=== PATIENT | male | born 1960 | race Caucasian/White ===

== ENCOUNTER 2016-12-10 08:34 | Inpatient (IN) | payer BC ==
[2016-12-10] MEDS ORDERED: IPRATROPIUM/ALBUTEROL (0.5MG/3MG) NEB INH ONE (08:58)
[2016-12-10] MEDS ORDERED: METHYLPREDNISOLONE PF 125MG/VIAL IVP ONE (08:58)
[2016-12-10] MEDS ORDERED: ALBUTEROL SULFATE (0.083%) 2.5 MG/3 ML NEB INH ONE (08:58)
--- NOTE | 2016-12-10 09:02 | Emergency Department Record ---
History of Present Illness - General Chief Complaint: Shortness of breath Stated Complaint: SHORT OF BREATH Time Seen by Provider: 12/10/16 08:54 Source: Patient Mode of Arrival: Ambulatory Limitations: No limitations - History of Present Illness Initial Comments: The patient has a long hx of COPD and has had mild SUSANA with an increased cough for 3 days that got a lot worse today. He denies any CP, fever, or sputum. He has a long hx of COPD and was admitted to [facility] [place] 2 months ago for respiratory failure. MD Complaint: Cough, Shortness of breath Onset/Timin -: Days(s) Consistency: Constant Improves With: Nothing Worsens With: Coughing Known History Of: COPD Associated Symptoms: Cough, Sputum production Treatments Prior to Arrival: Bronchodilator - Related Data Home Oxygen Therapy: Yes Home Oxygen Amount: 2 Liters Home Medications Medication Instructions Recorded Confirmed Last Taken Albuterol Sulfate [Proair Hfa] 1 puff INH Q6H PRN 04/05/15 12/10/16 02/29/16 Levothyroxine Sodium 75 mcg PO DAILY 04/05/15 12/10/16 02/29/16 Duloxetine HCl [Cymbalta] 60 mg PO BID 02/01/16 12/10/16 02/29/16 Umeclidinium Brm/Vilanterol Tr 1 each IH DAILY 02/01/16 12/10/16 12/10/16 [Anoro Ellipta 62.5-25 Mcg INH] Pantoprazole Sodium [Protonix] 20 mg PO DAILY 03/21/16 12/10/16 Unknown Budesonide [Budesonide] 0.5 mg IH DAILY 12/10/16 12/10/16 Unknown Cholestyramine (with Sugar) 4 gm PO DAILY 12/10/16 12/10/16 Unknown [Cholestyramine Packet] Nicotine [Nicotine Patch] 21 mg TD DAILY 12/10/16 12/10/16 Unknown Previous Rx's Medication Instructions Recorded Trazodone HCl 50 mg PO QHS #0 02/24/16 Allergies Allergy/AdvReac Type Severity Reaction Status Date / Time No Known Drug Allergies Allergy Verified 11/01/16 16:04 Travel Screening - Travel/Exposure Within Last 30 Days Have you traveled within the last 30 days?: No Review of Systems Constitutional: Denies: Chills, Fever Eyes: Denies: Eye discharge ENT: Reports: Congestion Respiratory: Reports: Cough, Dyspnea Cardiovascular: Denies: Arrhythmia, Chest pain Past Medical History - SOCIAL HISTORY Smoking Status: Light tobacco smoker (<10/day) - RESPIRATORY Hx Respiratory Disorders: Yes Comment:: Squamous cell carcinoma of the throat 2011, chemo and radiation 2012 - CARDIOVASCULAR Hx Cardio Disorders: Yes Hx Irregular Heartbeat: Yes (Atrial flutter) - NEURO Hx Neuro Disorders: No Hx Seizures: No - GI Hx GI Disorders: Yes Comment:: colon rupture with rection, sm. bowel resect 2 weeks ago. +C-diff - Hx Genitourinary Disorders: No - ENDOCRINE Hx Endocrine Disorders: Yes Hx Thyroid Disease: Yes (hypo) - MUSCULOSKELETAL Hx Musculoskeletal Disorders: No - PSYCH Hx Psych Problems: Yes Hx Anxiety: Yes Hx Depression: Yes - HEMATOLOGY/ONCOLOGY Hx Hematology/Oncology Disorders: Yes Hx Cancer: Yes (throat, lung) Family Medical History Any Significant Family History?: Yes Hx Alcohol Use: Father, Brother/Sister Hx Cancer: Father, Mother, Brother/Sister Hx Depression: Mother Hx Diabetes: Father Hx Resp Disorders: Brother/Sister Physical Exam - General General Appearance: Alert, Oriented x3, Cooperative, No acute distress - Head Head exam: Atraumatic, Normocephalic, Normal inspection - Eye Eye exam: Normal appearance, PERRL - ENT ENT exam: Normal exam, Mucous membranes moist, Normal external ear exam, Normal orophraynx, TM's normal bilaterally Throat exam: Normal inspection. negative: Tonsillar erythema, Tonsillar exudate - Neck Neck exam: Normal inspection, Full ROM. negative: Lymphadenopathy, Meningismus , Tenderness - Respiratory Respiratory exam: Decreased breath sounds, Wheezes (at the bases.). negative: Normal lung sounds bilaterally, Respiratory distress - Cardiovascular Cardiovascular Exam: Regular rate, Normal rhythm, Normal heart sounds - GI/Abdominal GI/Abdominal exam: Soft, Normal bowel sounds. negative: Tenderness - Extremities Extremities exam: Normal inspection, Full ROM, Normal capillary refill. negative: Tenderness - Neurological Neurological exam: Normal gait. negative: Abnormal gait - Psychiatric Psychiatric exam: negative: Anxious, Depressed Course Vital Signs 12/10/16 08:37 Temperature 98.2 F Pulse Rate 116 H Respiratory 20 Rate Blood Pressure 130/92 Pulse Ox 95 - Reevaluation(s) Reevaluation #1: The patient is doing much better at this time. His breathing is improved but he still has some wheezes at the bases. The patient states his breathing has improved and he is resting comfortably. Due to his hx of severe COPD and respiratory failure I did recommend hospital admission. I did discuss the case with Dr. Bush and he accepts him to the hospital. 12/10/16 10:24 Medical Decision Making - Data Complexity MDM Data: Labs Ordered and/or Reviewed, X-Ray Ordered and/or Reviewed - Lab Data Result diagrams: 12/10/16 08:55 12/10/16 08:55 - Radiology Data Radiology results: Report reviewed (CXR: No acute changes compared with old.) Disposition Disposition: Admit Clinical Impression: COPD (chronic obstructive pulmonary disease) with emphysema Qualifiers: Emphysema type: unspecified Qualified Code(s): J43.9 - Emphysema, unspecified Disposition: Still a Patient at [facility] Decision to Admit: Admit from ER Decision to Admit Date: 12/10/16 Decision to Admit Time: 10:26 Accepting Physician: Rachelle Time Discussed w/Accepting Physician: 10:27 Condition: (1) Good Forms: Patient Portal Access Time of Disposition: 10:27
[2016-12-10] MEDS ORDERED: MAGNESIUM SULFATE 16 MEQ in 0.9 % SODIUM CHLORIDE 100ML 100 ML IV ONE (09:03)
[2016-12-10 09:12] LABS: BASO % 0.3 % (0-6); EOS % 0.8 % (0-6); GRAN % 77.9 % (47-80); HEMATOCRIT 38.6 % (42.0-52.0); LYMPH % 11.4 % (16-45); MEAN CELL VOLUME 94.1 fl (81-97); MEAN CORPUSCULAR HEMOGLOBIN 29.2 pg (27-33); MEAN CORPUSCULAR HGB CONC 31.1 g/dl (32-36); MEAN PLATELET VOLUME 9.3 fl (7.4-10.4); MONO % 9.6 % (0-9); PLATELET COUNT 511 K/uL (130-400); RED CELL DISTRIBUTION WIDTH 14.5 % (11.5-14.5); WHITE BLOOD COUNT W/O DIFF 11.6 K/uL (4.2-12.2)
[2016-12-10 09:26] LABS: ANION GAP 12.5 (7-16); BLOOD UREA NITROGEN 14 mg/dL (9-20); CARBON DIOXIDE 32.5 mmol/L (22-30); CREATININE 0.8 mg/dL (0.66-1.25); EST GLOMERULAR FILTRATION RATE > 60 ml/min; GLUCOSE,RANDOM 105 mg/dL (70-110)
[2016-12-10 09:30] LABS: ARTERIAL BLD GAS O2 SATURATION 97.3 % (95-98); ARTERIAL BLOOD GAS HCO3 29.5 mmol/L (18-23); ARTERIAL BLOOD GAS PCO2 58.2 mmHg (35-48); ARTERIAL BLOOD GAS pH 7.33 (7.35-7.45); CARBOXYHEMOGLOBIN 4.2 % (0-1.5); METHEMOGLOBIN 0.6 % (0.0-1.5); O2 HEMOGLOBIN 92.7 % vol (94-99); TOTAL HEMOGLOBIN 10.7 g/dl (14-18)
[2016-12-10] MEDS ORDERED: CEFTRIAXONE SODIUM 1 GM in 0.9 % SODIUM CHLORIDE 100ML 100 ML IVPB ONE (10:21)
[2016-12-10] MEDS ORDERED: AZITHROMYCIN 500 MG in 0.9 % SODIUM CHLORIDE 250ML 250 ML IVPB ONE (10:21)
[2016-12-10] MEDS ORDERED: ALBUTEROL SULFATE (0.083%) 2.5 MG/3 ML NEB INH PRN ×2 (12:58→14:49)
[2016-12-10] MEDS: IPRATROPIUM/ALBUTEROL (0.5MG/3MG) NEB INH SCH ×3 (13:31→21:52)
--- NOTE | 2016-12-10 15:01 | RADIOLOGY REPORT ---
EXAM: CHEST HISTORY: DIFFICULTY BREATHING AND PRODUCTIVE COUGH WITH BROWN SPUTUM FOR ONE DAY. HISTORY OF LUNG CANCER AND THROAT CANCER. TECHNIQUE: Two views of the chest were obtained. Comparison: 04/14/15. FINDINGS: The heart is not enlarged. No mediastinal mass. There is volume loss in the right hemithorax likely from prior partial right pneumonectomy. There is chronic blunting at the right lung base. The lungs are hyperinflated. There is no acute infiltrate or vascular congestion identified. IMPRESSION: 1. POST RIGHT THORACOTOMY AND PARTIAL PNEUMONECTOMY CHANGES ARE REDEMONSTRATED. 2. THERE ARE EMPHYSEMATOUS CHANGES. 3. NO ACUTE CARDIAC OR PULMONARY ABNORMALITY. JOB NUMBER: [id number] MTDD
[2016-12-10] MEDS ORDERED: 0.9 % SODIUM CHLORIDE 1000ML 1,000 ML IV PRN (15:13)
[2016-12-10] MEDS: NICOTINE 21 MG/24 HOUR PATCH TD SCH (18:09)
[2016-12-10] MEDS: CHOLESTYRAMINE 4 GM PO SCH (19:00)
[2016-12-10] MEDS: CEFTRIAXONE SODIUM 1 GM in 0.9 % SODIUM CHLORIDE 100ML 100 ML IVPB SCH (22:09)
[2016-12-10] MEDS: TRAZODONE 50 MG TABLET PO SCH (22:10)
[2016-12-10] MEDS: DULOXETINE HCL 30 MG CAPSULE.DR PO SCH (22:10)
[2016-12-11] MEDS: IPRATROPIUM/ALBUTEROL (0.5MG/3MG) NEB INH SCH ×6 (02:16→22:15)
[2016-12-11 06:01] LABS: BASO % 0.5 % (0-6); EOS % 0.5 % (0-6); GRAN % 68.6 % (47-80); HEMATOCRIT 31.8 % (42.0-52.0); HEMOGLOBIN 9.7 gm/dl (14.0-18.0); LYMPH % 16.9 % (16-45); MEAN CELL VOLUME 94.4 fl (81-97); MEAN CORPUSCULAR HGB CONC 30.5 g/dl (32-36); MEAN PLATELET VOLUME 9.3 fl (7.4-10.4); MONO % 13.5 % (0-9); PLATELET COUNT 443 K/uL (130-400); RED BLOOD COUNT 3.37 M/uL (4.40-5.70); RED CELL DISTRIBUTION WIDTH 14.3 % (11.5-14.5); WHITE BLOOD COUNT W/O DIFF 6.2 K/uL (4.2-12.2)
[2016-12-11 06:04] LABS: MEAN CORPUSCULAR HEMOGLOBIN 28.7 pg (27-33)
[2016-12-11 06:13] LABS: ALB/GLOB RATIO 1.3 (1.1-1.8); ALBUMIN 3.4 gm/dL (3.5-5.0); ALKALINE PHOSPHATASE 63 U/L (38-126); ALT/SGPT 37 U/L (21-72); ANION GAP 9.2 (7-16); AST/SGOT 22 U/L (17-59); BILIRUBIN,TOTAL < 0.10 mg/dL (0.2-1.3); BLOOD UREA NITROGEN 12 mg/dL (9-20); CARBON DIOXIDE 32.8 mmol/L (22-30); CREATININE 0.6 mg/dL (0.66-1.25); EST GLOMERULAR FILTRATION RATE > 60 ml/min; GLUCOSE,RANDOM 106 mg/dL (70-110); TOTAL PROTEIN 6.1 gm/dL (6.3-8.2)
[2016-12-11] MEDS: LEVOTHYROXINE SODIUM 75 MCG TABLET PO SCH (06:16)
[2016-12-11] MEDS: PANTOPRAZOLE SODIUM 40 MG TABLET PO SCH (06:16)
--- NOTE | 2016-12-11 07:33 | History and Physical Report ---
DATE OF DICTATION: 12/10/2016 at 7:30 p.m. CHIEF COMPLAINT: Dyspnea. HISTORY OF PRESENT ILLNESS: This 56-year-old male presented to the emergency department short of breath. He states that it started about two days prior. He was feeling pretty tired at that time. He woke up on the morning of admission very short of breath. He came into the emergency room and had a blood gas of 7.33, PC02 of 58, and P02 was decreased. He was evaluated by Dr. Luna with three breathing treatments, intravenous Solu Medrol, Rocephin, and intravenous magnesium. He was doing better. At that point it was felt he needed to be admitted for further treatments and intravenous antibiotics. PAST MEDICAL HISTORY: Metastatic lung cancer with a lobectomy of the right lower lobe. He had a thoracotomy. He also had a bowel resection with anastomosis and a perforation and a neck biopsy. He had squamous cell cancer of the neck, chronic obstructive pulmonary disease, and tobacco use disorder. He also had squamous cell carcinoma of the throat in 2011 with chemotherapy and radiation therapy. He has hypothyroidism and some anxiety disorders. PAST SURGICAL HISTORY: As stated above throat surgery, lung surgery, and colon surgery. MEDICATIONS ON ADMISSION: Pulmicort 0.5 mg b.i.d. nebulization. I think this was placed this admission. Nicotine patches, Cymbalta 60 mg b.i.d., cholestyramine 4.0 gm or one package a day for C. difficile. He is also on Anoro Ellipta inhaler one puff daily, trazodone 50 mg at h.s., Protonix 20 mg daily, Levothroid 75 mcg q. daily, and albuterol two puffs q. four hours p.r.n. He also has a nebulizer of DuoNeb at home. ALLERGIES: No known drug allergies. FAMILY/PSYCHOSOCIAL HISTORY: He smokes only ten cigarettes a day, but he did used to smoke one pack per day and even more than that when he was younger. He denies any alcohol or illegal drug use. Alcohol use with father, brother, and sister. Cancer in the father, mother, brother, and sister. Depression in the mother. Diabetes in the father. Respiratory disease in the brother and sister. REVIEW OF SYSTEMS: HEENT: He has slight congestion and a hoarse voice. He has a cough and productive sputum. Cardiovascular: No chest pain, palpitations, or arrhythmias. Respiratory: Short of breath. Cough. Decreased breath sounds. He has a hard time taking a deep breath. Gastrointestinal: No nausea, vomiting, diarrhea, black stools, or bloody stools. Genitourinary: No dysuria, hematuria, frequency, or burning on urination. Musculoskeletal: He does have chronic joint problems and arthritis, but he is moving all four extremities well. He moves around, sits up, and walks appropriately. Neurologic: No cerebrovascular accident, paralysis, or paraesthesias. Endocrine: No diabetes or thyroid disease. Integument: No rash, ulcers, changing moles, or yellow skin. PHYSICAL EXAMINATION: General: Height is 5 feet, 7 inches. Weight is 117 pounds. Vital Signs: Temperature is 98.8, pulse is 102, blood pressure is 119/78, pulse oximetry on 1.5 liters per minute of oxygen is 98%. His home oxygen is 1.5 to 2 liters per minute. When he is off his oxygen, it drops down to 85% on room air. HEENT: Pupils are equal, round, and reactive to light and accommodation. Extraocular muscles are intact. The throat is clear. The nose is clear. The tympanic membranes are ibarra. Neck: The neck is supple. No jugular venous distension. No hepatojugular reflex. No carotid bruit. The thyroid is smooth. Cardiovascular: Regular rate and rhythm without murmurs, clicks, rubs, or gallops. Respiratory: Decreased breath sounds bilaterally, some wheezing, and a cough with deep inspiration. Abdomen: Soft and nontender. No hepatosplenomegaly. No masses. No tenderness. Bowel sounds are active. No bruit. Extremities: No pitting edema. No cyanosis. No clubbing. Full range of motion. Peripheral pulses are good. Breasts: Normal male breasts. Rectal and Genitalia Examination: Deferred. Neurological Examination: Cranial nerves II through XII are intact. No gross defect. Sensation is normal. Strength is normal. Deep tendon reflexes are equal bilaterally. Babinski is negative. Mental Status: Alert and oriented times three. IMPRESSIONS: 1. Acute bronchitis. 2. Chronic obstructive pulmonary disease exacerbation. 3. Chronic hypoxia requiring home oxygen at 1.5 liters per minute. He also has problems with retaining C02, and so he cannot really increase his oxygen levels much because he will retain carbon dioxide as noted during his last hospitalization at [facility]. His PC02 was up to over 100. PLAN: Intravenous Solu Medrol 60 mg q. eight hours, Rocephin 1.0 gm q. 12 hours , azithromycin 500 mg q. daily. Breathing treatments with DuoNeb q. four hours while awake. Oxygen therapy. Albuterol q. one hour p.r.n. Cautious hydration with normal saline at 50 mL per hour. Nikita Bush D.O. Date Time JOB NUMBER: [id number] MTDD
[2016-12-11] MEDS: DULOXETINE HCL 30 MG CAPSULE.DR PO SCH ×3 (07:41→22:20)
[2016-12-11] MEDS ORDERED: BUDESONIDE 0.5 MG/2 ML INH SCH (10:00)
[2016-12-11] MEDS: NICOTINE 21 MG/24 HOUR PATCH TD SCH (10:05)
[2016-12-11] MEDS: CEFTRIAXONE SODIUM 1 GM in 0.9 % SODIUM CHLORIDE 100ML 100 ML IVPB SCH (10:05)
[2016-12-11] MEDS: AZITHROMYCIN 500 MG in 0.9 % SODIUM CHLORIDE 250ML 250 ML IVPB SCH (12:03)
[2016-12-11] MEDS ORDERED: METHYLPREDNISOLONE PF 125MG/VIAL IVP SCH (16:00)
[2016-12-11] MEDS: ENOXAPARIN 40 MG/0.4 ML SYR SQ SCH (16:39)
[2016-12-11] MEDS: PREDNISONE 10 MG TAB PO ONE (16:40)
[2016-12-11] MEDS: PREDNISONE 20 MG TAB PO SCH (16:40)
[2016-12-11] MEDS: 0.9 % SODIUM CHLORIDE 10ML SYR IVP SCH ×2 (16:42→22:20)
[2016-12-11] MEDS: CHOLESTYRAMINE 4 GM PO SCH (18:00)
[2016-12-11] MEDS: TRAZODONE 50 MG TABLET PO SCH (22:20)
[2016-12-12] MEDS: IPRATROPIUM/ALBUTEROL (0.5MG/3MG) NEB INH SCH ×3 (03:14→08:59)
[2016-12-12] MEDS: LEVOTHYROXINE SODIUM 75 MCG TABLET PO SCH (07:12)
[2016-12-12] MEDS: PANTOPRAZOLE SODIUM 40 MG TABLET PO SCH (07:12)
[2016-12-12] MEDS: PREDNISONE 10 MG TAB PO ONE (09:05)
[2016-12-12] MEDS: PREDNISONE 20 MG TAB PO SCH (09:16)
[2016-12-12] MEDS: DULOXETINE HCL 30 MG CAPSULE.DR PO SCH (09:57)
[2016-12-12] MEDS: ENOXAPARIN 40 MG/0.4 ML SYR SQ SCH (09:57)
[2016-12-12] MEDS: NICOTINE 21 MG/24 HOUR PATCH TD SCH (09:59)
[2016-12-12] MEDS: AZITHROMYCIN 500 MG in 0.9 % SODIUM CHLORIDE 250ML 250 ML IVPB SCH (09:59)
--- NOTE | 2016-12-12 12:12 | Discharge Note ---
Discharge Note - Date Date of Discharge Note: 12/12/16 Disposition: Home, Self-Care Condition: (1) Good Additional Instructions: follow up with Dr. Bob on weds use home oxygen Prescriptions: Ipratropium/Albuterol [Duoneb] 3 ml INH RESP.Q4H.WA #120 ampul.neb Prednisone [Prednisone 10Mg] 10 mg PO ASDIR #30 tab Azithromycin [Zithromax] 250 mg PO DAILY #6 tab Forms: Patient Portal Access Activity at Discharge: Increase Activity as Tolerated
--- NOTE | 2016-12-12 12:34 | Discharge Note ---
Discharge Note - Date Date of Discharge Note: 12/12/16 Condition: (1) Good Additional Instructions: follow up with Dr. Bob on weds use home oxygen Prescriptions: Ipratropium Br. 0.02% Neb [Atrovent 0.02% Neb] 0.5 mg NEB QID #120 ml Prednisone [Prednisone 10Mg] 10 mg PO ASDIR #30 tab Budesonide [Pulmicort] 0.5 mg IH Q12H #60 nebu Azithromycin [Zithromax] 250 mg PO DAILY #6 tab Referrals: Jim Bob M.D., F.A.C.P. [Primary Care Provider] - Forms: Patient Portal Access Activity at Discharge: Increase Activity as Tolerated
--- NOTE | 2016-12-12 13:47 | Discharge Summary ---
DATE OF DISCHARGE: 12/12/2016 at 12:35 p.m. DISCHARGE DIAGNOSES: 1. Acute bronchitis. 2. Exacerbation of chronic obstructive pulmonary disease. 3. Hypoxia requiring home oxygen at two liters per minute per nasal cannula. 4. A history of C. difficile. He is currently on cholestyramine for 30 more days. He initially had Flagyl at the beginning of the course of treatment when he was at [facility]. 5. A history of hypothyroidism. 6. A history of tobacco use disorder. 7. As an inpatient he wants to use the nicotine patches. He has them at home, 14 and 7 mcg per 24 hours. He will plan to use a 14 and a 7 at the same time for a short while. He will then drop them down to 14 and then 7. 8. He also has gastroesophageal reflux disease. ATTENDING PHYSICIAN: Nikita Bush D.O. REASON FOR HOSPITALIZATION: Dyspnea. HISTORY OF THE PRESENT ILLNESS: This 56-year-old male presented to the emergency department short of breath. He states that it started about two days prior. He was feeling pretty tired and run down. He woke up on the morning of admission very short of breath. He came to the emergency department and had a blood gas of 7.33, a PC02 of 50, and a P02 of 80. He was evaluated by Dr. Luna and had three breathing treatments. He was given intravenous Solu Medrol, Rocephin, and intravenous magnesium. He was doing better. At that point it was felt that he needed to be admitted for further treatments and antibiotics. He recently had a hospitalization at [facility] on October 30 through the . He was on Bi-PAP and in respiratory failure, and so Dr. Luna was concerned that he could go that way with this admission. SIGNIFICANT FINDINGS FROM EXAMINATION: LABORATORY DATA: His pH was 7.33, PC02 was 58, P02 was 88, bicarb was 29. Carboxyhemoglobin was 4.2. He is still smoking cigarettes. Hemoglobin was 0.6. His potassium was 4.3. C-reactive protein was 1.5; slightly elevated. White blood cell count was 11,600, hemoglobin was 12.0. DIAGNOSTIC DATA: Chest x-ray showed no acute cardiopulmonary abnormality. Post right thoracotomy and partial pneumectomy changes are redemonstrated. There are emphysematous changes. Cardiac monitoring showed normal sinus rhythm without premature ventricular contractions. THERAPY PROVIDED: The patient was started on breathing treatments with DuoNeb q. four hours while awake. He had three treatments of albuterol in the emergency department. Solu Medrol 125 mg was given intravenously. He was also given 2.0 gm of magnesium or 16 mEq. He was admitted to the hospital with intravenous Rocephin and azithromycin. HOSPITAL COURSE: The patient gradually improved. CONDITION AT DISCHARGE: Much improved. He is short of breath still when he walks a distance. He has to have his oxygen at two liters per minute per nasal cannula. He also needs to use his nebulizer. He has Pulmicort at home and is using that 0.5 mg twice a day. He has separate albuterol and Atrovent. He uses those four times a day. He also has the portable ProAir and the portable Ellipta inhaler one puff daily. DISCHARGE INSTRUCTIONS: He is to continue his other home medications. Follow up with Dr. Bob on Tuesday or within the next seven to ten days. He is to use a prednisone taper at 40 mg with 10 mg pills. He will take four pills a day for three days, and then three pills a day for three days, two pills a day for three days, and then one pill a day for three days. Z-Zak one a day until gone. Home oxygen at two liters per minute per nasal cannula. Stop the cigarettes. Continue the nicotine patches. He wants to use 21 mcg a day for a period of time and then he will drop down to 14 and then 7. Continue the Pulmicort 0.5 mg b.i.d. and the separate albuterol nebulization four times a day. He has separate medication. Cymbalta 60 mg b.i.d. Cholestyramine 4.0 gm one package daily for his C. difficile; he has 30 days of that. He has the Anora Ellipta inhalation one puff per day. Trazodone 50 mg at h.s., Protonix 20 mg daily, Levothroid 75 mcg q. daily. Activity as tolerated. Nikita Bush D.O. Date Time JOB NUMBER: [id number] cc: Salbador Booker
== END 2016-12-12 13:10 | disposition home or self-care (01) | DRG 192 ==
LOC: ER 08:34 → MEDSURG 12:18
PROVIDERS: ADMIT Emergency Medicine; ATTEND Emergency Medicine
DX: J44.0 Chronic obstructive pulmonary disease with (acute) lower respiratory infection (principal); J20.9 Acute bronchitis, unspecified; R09.02 Hypoxemia; F17.200 Nicotine dependence, unspecified, uncomplicated; E03.9 Hypothyroidism, unspecified; I48.2 Chronic atrial fibrillation; Z85.01 Personal history of malignant neoplasm of esophagus
CPT/HCPCS: 36600; 71020; 80048; 80053; 82375; 82803; 85025; 86140; 94640; 96365; 96366; 96368; 96375; 99285; J0456; J1650; J2930; J7050; J7512; J7613

== ENCOUNTER 2017-01-07 19:03 | Emergency (ER) | payer BC ==
[2017-01-07] MEDS ORDERED: 0.9 % SODIUM CHLORIDE 1,000 ML BAG IV ONE (19:51)
--- NOTE | 2017-01-07 19:54 | Emergency Department Record ---
History of Present Illness - General Chief Complaint: Recheck - Other Stated Complaint: HEMOGLOBIN & IRON LOW Time Seen by Provider: 01/07/17 19:45 Source: Patient - History of Present Illness Initial Comments: The patient is here due to generalized weakness and he thinks he may be dehydrated. He is chronically ill with lung cancer treated 2 years ago with no known recurrence, throat cancer with not recurrence. He is being followed by his oncologist. Three days ago he was told he had "low iron" and was placed on iron tablets. He denies cp, worsened yanick, n,v,d, but he is urinating less often and thinks he may be dehydrated. No f,c, change in his chronic cough, increased YANICK, or leg pains. Onset/Timin -: Days(s) Initial Visit For: Other Returns Today for: Called because of abnormal lab/test Symptoms Since Prior Visit: No new symptoms, Other Associated Symptoms: Other Treatments Prior to Arrival: Other - Related Data Home Medications Medication Instructions Recorded Confirmed Last Taken Albuterol Sulfate [Proair Hfa] 1 puff INH Q6H PRN 04/05/15 01/07/17 02/29/16 Levothyroxine Sodium 75 mcg PO DAILY 04/05/15 01/07/17 02/29/16 Duloxetine HCl [Cymbalta] 60 mg PO BID 02/01/16 01/07/17 02/29/16 Umeclidinium Brm/Vilanterol Tr 1 each IH DAILY 02/01/16 01/07/17 12/10/16 [Anoro Ellipta 62.5-25 Mcg INH] Pantoprazole Sodium [Protonix] 20 mg PO DAILY 03/21/16 01/07/17 Unknown Bupropion HCl [Wellbutrin Xl] 300 mg PO DAILY 01/07/17 01/07/17 Unknown Ferrous Sulfate [Iron] 325 mg PO DAILY 01/07/17 01/07/17 Unknown Previous Rx's Medication Instructions Recorded Trazodone HCl 50 mg PO QHS #0 02/24/16 Albuterol Sulfate 0.083% [Neb] 2.5 mg INH QID PRN #0 nebulization 12/12/16 solution Budesonide [Pulmicort] 0.5 mg IH Q12H #60 nebu 12/12/16 Ipratropium Br. 0.02% Neb 0.5 mg NEB QID #120 ml 12/12/16 [Atrovent 0.02% Neb] Allergies Allergy/AdvReac Type Severity Reaction Status Date / Time No Known Drug Allergies Allergy Verified 11/01/16 16:04 Travel Screening - Travel/Exposure Within Last 30 Days Have you traveled within the last 30 days?: No - Travel/Exposure Within Last Year Have you traveled outside the [place] in the last year?: No - Additonal Travel Details Have you been exposed to anyone with a communicable illness?: No - Travel Symptoms Symptom Screening: None Review of Systems Reviewed: No additional complaints except as noted below Constitutional: Reports: As per HPI. Denies: Chills, Fever, Malaise, Night sweats, Weakness, Weight change Eyes: Reports: As per HPI. Denies: Eye discharge, Eye pain, Photophobia, Vision change ENT: Reports: As per HPI. Denies: Congestion, Dental pain, Ear pain, Epistaxis , Hearing loss, Throat pain Respiratory: Reports: As per HPI. Denies: Cough, Dyspnea, Hemoptysis, Stridor, Wheezes Cardiovascular: Reports: As per HPI. Denies: Arrhythmia, Chest pain, Dyspnea on exertion, Edema, Murmurs, Orthopnea, Palpitations, Paroxysmal nocturnal dyspnea, Rheumatic Fever, Syncope Endocrine: Reports: As per HPI. Denies: Fatigue, Heat or cold intolerance, Polydipsia, Polyuria Gastrointestinal: Reports: As per HPI. Denies: Abdominal pain, Constipation, Diarrhea, Hematemesis, Hematochezia, Melena, Nausea, Vomiting Genitourinary: Reports: As per HPI. Denies: Dysuria, Frequency, Hematuria, Incontinence, Retention, Testicular pain, Testicular mass, Urgency Musculoskeletal: Reports: As per HPI. Denies: Arthralgia, Back pain, Gout, Joint swelling, Myalgia, Neck pain Skin: Reports: As per HPI. Denies: Bruising, Change in color, Change in hair/ nails, Lesions, Pruritus, Rash Neurological: Reports: As per HPI. Denies: Abnormal gait, Confusion, Headache, Numbness, Paresthesias, Seizure, Tingling, Tremors, Vertigo, Weakness Psychiatric: Reports: As per HPI. Denies: Anxiety, Auditory hallucinations, Depression, Homicidal thoughts, Suicidal thoughts, Visual hallucinations Hematological/Lymphatic: Reports: As per HPI. Denies: Anemia, Blood Clots, Easy bleeding, Easy bruising, Swollen glands Past Medical History - SOCIAL HISTORY Smoking Status: Former smoker Alcohol Use: None Drug Use: None - RESPIRATORY Hx Respiratory Disorders: Yes Hx COPD: Yes Comment:: Squamous cell carcinoma of the throat 2011, chemo and radiation 2012 - CARDIOVASCULAR Hx Cardio Disorders: Yes Hx Irregular Heartbeat: Yes (Atrial flutter) - NEURO Hx Neuro Disorders: No Hx Seizures: No - GI Hx GI Disorders: Yes Comment:: colon rupture with rection, sm. bowel resect 2 weeks ago. +C-diff - Hx Genitourinary Disorders: No - ENDOCRINE Hx Endocrine Disorders: Yes Hx Thyroid Disease: Yes (hypo) - MUSCULOSKELETAL Hx Musculoskeletal Disorders: No - PSYCH Hx Psych Problems: Yes Hx Anxiety: Yes Hx Depression: Yes - HEMATOLOGY/ONCOLOGY Hx Hematology/Oncology Disorders: Yes Hx Cancer: Yes (throat, lung) Family Medical History Any Significant Family History?: Yes Hx Alcohol Use: Father, Brother/Sister Hx Cancer: Father, Mother, Brother/Sister Hx Depression: Mother Hx Diabetes: Father Hx Resp Disorders: Brother/Sister Physical Exam - General General Appearance: Alert, Oriented x3, Cooperative, No acute distress (chronic COPD dyspnea, on home oxygen, cachectic) - Head Head exam: Normal inspection - Eye Eye exam: Normal appearance, PERRL Pupils: Normal accommodation - ENT ENT exam: Normal exam, Mucous membranes dry, Normal external ear exam, Normal orophraynx, TM's normal bilaterally Ear exam: Normal external inspection. negative: External canal tenderness Nasal Exam: Normal inspection. negative: Discharge, Sinus tenderness Mouth exam: Normal external inspection, Tongue normal Teeth exam: Normal inspection. negative: Dental caries Throat exam: Normal inspection. negative: Tonsillar erythema, Tonsillar exudate - Neck Neck exam: Normal inspection, Full ROM. negative: Tenderness - Respiratory Respiratory exam: Decreased breath sounds, Prolonged expiratory, Other ( increased AP diameter, barrel chested). negative: Chest wall tenderness, Rales , Respiratory distress, Wheezes - Cardiovascular Cardiovascular Exam: Regular rate, Normal rhythm, Normal heart sounds - GI/Abdominal GI/Abdominal exam: Soft, Normal bowel sounds. negative: Tenderness - Rectal Rectal exam: Deferred - exam: Deferred - Extremities Extremities exam: Normal inspection, Full ROM, Normal capillary refill. negative: Calf tenderness, Pedal edema, Tenderness - Back Back exam: Reports: Normal inspection, Full ROM. Denies: Muscle spasm, Rash noted, Tenderness - Neurological Neurological exam: Alert, Normal gait, Oriented X3, Reflexes normal - Psychiatric Psychiatric exam: Normal affect, Normal mood - Skin Skin exam: Dry, Intact, Normal color, Warm Course Vital Signs 01/07/17 19:19 Temperature 97.7 F Pulse Rate 93 H Respiratory 20 Rate Blood Pressure 145/90 Pulse Ox 94 L - Reevaluation(s) Reevaluation #1: Patient states he feels better after his liter of fluids. He wishes to further hydrate at home and will use gatoraide or G2 to hydrate. He states he has been scheduled for a colonoscopy next week through his PCP and is dreading the prep because he is fatigued. 01/07/17 22:13 Medical Decision Making - Management Options MDM Management: No Additional Work-up Planned - Data Complexity MDM Data: Labs Ordered and/or Reviewed, X-Ray Ordered and/or Reviewed (CXR: Scarring right lung base, COPD changes, no changes since 12-10-16. Per radiologist.), EKG Ordered and/or Reviewed - Lab Data Result diagrams: 01/07/17 20:10 01/07/17 20:10 - EKG Data -: EKG Interpreted by Me (NSR, atrial enlargement, no acute changes) Disposition Disposition: Discharge Clinical Impression: Dehydration COPD (chronic obstructive pulmonary disease) Qualifiers: COPD type: unspecified COPD Qualified Code(s): J44.9 - Chronic obstructive pulmonary disease, unspecified Disposition: Home, Self-Care Condition: (2) Stable Instructions: Dehydration (ED) Additional Instructions: Increase your fluid intake. Monitor your urine output and urine color to help you evaluate your hydration state. Follow up with PCP as needed. Continue present meds. Forms: Patient Portal Access
[2017-01-07 20:20] LABS: BASO % 0.3 % (0-6); EOS % 1.9 % (0-6); HEMATOCRIT 33.8 % (42.0-52.0); HEMOGLOBIN 10.2 gm/dl (14.0-18.0); MEAN CORPUSCULAR HGB CONC 30.2 g/dl (32-36); MEAN PLATELET VOLUME 9.3 fl (7.4-10.4); MONO % 8.8 % (0-9); PLATELET COUNT 413 K/uL (130-400); RED BLOOD COUNT 3.52 M/uL (4.40-5.70); RED CELL DISTRIBUTION WIDTH 14.9 % (11.5-14.5); WHITE BLOOD COUNT W/O DIFF 9.3 K/uL (4.2-12.2)
[2017-01-07 20:23] LABS: MEAN CORPUSCULAR HEMOGLOBIN 28.9 pg (27-33)
[2017-01-07 20:30] LABS: CREATINE PHOSPHOKINASE 43 U/L (55-170)
[2017-01-07 20:32] LABS: ALBUMIN 4.2 gm/dL (3.5-5.0); ALKALINE PHOSPHATASE 74 U/L (38-126); ALT/SGPT 33 U/L (21-72); ANION GAP 10.9 (7-16); AST/SGOT 25 U/L (17-59); BILIRUBIN,TOTAL 0.23 mg/dL (0.2-1.3); BLOOD UREA NITROGEN 14 mg/dL (9-20); CARBON DIOXIDE 39.1 mmol/L (22-30); CREATININE 0.7 mg/dL (0.66-1.25); EST GLOMERULAR FILTRATION RATE > 60 ml/min; GLUCOSE,RANDOM 115 mg/dL (70-110); LIPASE 64 U/L (23-300); TOTAL PROTEIN 7.3 gm/dL (6.3-8.2)
[2017-01-07 20:43] LABS: CKMB 3.4 ug/L (0-6)
[2017-01-07 20:47] LABS: TROPONIN I < 0.012 ng/mL (0.00-0.034)
[2017-01-07] MEDS ORDERED: IPRATROPIUM/ALBUTEROL (0.5MG/3MG) NEB INH ONE (20:47)
[2017-01-07 21:04] LABS: URINE APPEARANCE CLEAR; URINE BILIRUBIN NEGATIVE (NEGATIVE); URINE BLOOD NEGATIVE (NEGATIVE); URINE COLOR YELLOW; URINE GLUCOSE (UA) NEGATIVE (NEGATIVE); URINE KETONE NEGATIVE (NEGATIVE); URINE LEUKOCYTE ESTERASE NEGATIVE (NEGATIVE); URINE NITRITE NEGATIVE (NEGATIVE); URINE PROTEIN NEGATIVE (NEGATIVE); URINE UROBILINOGEN 0.2 E.U./dL (0.20 - 1.00)
== END 2017-01-07 22:43 | disposition home or self-care (01) ==
LOC: ER 19:03
DX: E86.0 Dehydration (principal); J44.9 Chronic obstructive pulmonary disease, unspecified; R53.1 Weakness; Z87.891 Personal history of nicotine dependence
CPT/HCPCS: 71020; 80048; 80076; 81003; 82550; 82553; 83690; 84484; 85025; 93005; 93010; 94640; 96360; 96361; 99284; J7030

== ENCOUNTER 2017-02-12 11:35 | Observation (INO) | payer BC ==
[2017-02-12] MEDS ORDERED: 0.9 % SODIUM CHLORIDE 1,000 ML BAG IV ONE ×2 (12:02→13:46)
--- NOTE | 2017-02-12 12:07 | Emergency Department Record ---
History of Present Illness - General Chief Complaint: Abdominal Pain Stated Complaint: BLOCKAGE Time Seen by Provider: 02/12/17 11:59 Source: Patient Mode of Arrival: Ambulatory Limitations: No limitations - History of Present Illness Initial Comments: 57 yo male presents with abdominal pain. The onset was on . The pain has been localized to the LLQ. No vomiting. He is having bowel movements. No blood or diarrhea. No fevers. He has had prior abdominal surgery one year ago for "gangrenous" intestines. He reports multiple intestinal surgeries in the past. His surgery at that time was at [facility]. No back pain. He has underlying lung disease on oxygen but reports his breathing is doing well at this time. Surgeon is Aimee. Complaint: Abdominal pain Onset/Timin -: Days(s) Location: LLQ Radiation: None Migration to: No migration Severity: Moderate Quality: Aching Consistency: Constant Improves With: Rest Worsens With: Movement Associated Symptoms: Denies other symptoms - Related Data Home Medications Medication Instructions Recorded Confirmed Last Taken Albuterol Sulfate [Proair Hfa] 1 puff INH Q6H PRN 04/05/15 01/07/17 02/29/16 Levothyroxine Sodium 75 mcg PO DAILY 04/05/15 01/07/17 02/29/16 Duloxetine HCl [Cymbalta] 60 mg PO BID 02/01/16 01/07/17 02/29/16 Umeclidinium Brm/Vilanterol Tr 1 each IH DAILY 02/01/16 01/07/17 12/10/16 [Anoro Ellipta 62.5-25 Mcg INH] Pantoprazole Sodium [Protonix] 20 mg PO DAILY 03/21/16 01/07/17 Unknown Bupropion HCl [Wellbutrin Xl] 300 mg PO DAILY 01/07/17 01/07/17 Unknown Ferrous Sulfate [Iron] 325 mg PO DAILY 01/07/17 01/07/17 Unknown Previous Rx's Medication Instructions Recorded Trazodone HCl 50 mg PO QHS #0 02/24/16 Albuterol Sulfate 0.083% [Neb] 2.5 mg INH QID PRN #0 nebulization 12/12/16 solution Budesonide [Pulmicort] 0.5 mg IH Q12H #60 nebu 12/12/16 Ipratropium Br. 0.02% Neb 0.5 mg NEB QID #120 ml 12/12/16 [Atrovent 0.02% Neb] Allergies Allergy/AdvReac Type Severity Reaction Status Date / Time No Known Drug Allergies Allergy Verified 11/01/16 16:04 Travel Screening - Travel/Exposure Within Last 30 Days Have you traveled within the last 30 days?: No - Travel/Exposure Within Last Year Have you traveled outside the [place] in the last year?: No - Additonal Travel Details Have you been exposed to anyone with a communicable illness?: No Review of Systems Constitutional: Denies: Chills, Fever, Weakness Eyes: Denies: Eye discharge, Eye pain, Photophobia ENT: Denies: Congestion, Throat pain Respiratory: Denies: Cough, Dyspnea, Hemoptysis, Stridor, Wheezes Cardiovascular: Denies: Chest pain, Palpitations, Syncope Endocrine: Denies: Fatigue Gastrointestinal: Reports: Abdominal pain. Denies: Constipation, Diarrhea, Hematemesis, Hematochezia, Melena, Nausea, Vomiting Genitourinary: Denies: Dysuria, Frequency, Hematuria, Retention Musculoskeletal: Denies: Arthralgia, Back pain, Joint swelling, Myalgia, Neck pain Skin: Denies: Bruising, Change in color, Rash Neurological: Denies: Confusion, Headache Psychiatric: Denies: Anxiety Hematological/Lymphatic: Denies: Blood Clots, Easy bleeding, Easy bruising, Swollen glands Past Medical History - SOCIAL HISTORY Smoking Status: Light tobacco smoker (<10/day) Alcohol Use: None Drug Use: None - RESPIRATORY Hx Respiratory Disorders: Yes Hx COPD: Yes Hx Pneumonia: Yes Hx Sleep Apnea: Yes Hx of CPAP: (is getting soon) - CARDIOVASCULAR Hx Cardio Disorders: No Hx Irregular Heartbeat: (n/a) Comment:: Tolerance is fair as long as wearing O2 - NEURO Hx Neuro Disorders: No Hx Seizures: No - GI Hx GI Disorders: Yes Hx Reflux: Yes Comment:: colon perforation (d/t OIC) with resection, +C-diff - Hx Genitourinary Disorders: No - ENDOCRINE Hx Endocrine Disorders: Yes Hx Thyroid Disease: Yes (hypo) - MUSCULOSKELETAL Hx Musculoskeletal Disorders: No - PSYCH Hx Psych Problems: Yes Hx Anxiety: Yes Hx Depression: Yes - HEMATOLOGY/ONCOLOGY Hx Hematology/Oncology Disorders: Yes Hx Cancer: Yes (throat, lung) Hx Chemotherapy: Yes Hx Radiation Therapy: Yes Hx Blood Transfusions: Yes Hx Blood Transfusion Reaction: No Family Medical History Any Significant Family History?: No Hx Alcohol Use: Father, Brother/Sister Hx Cancer: Father, Mother, Brother/Sister Hx Depression: Mother Hx Diabetes: Father Hx Resp Disorders: Brother/Sister Physical Exam - General General Appearance: Alert, Oriented x3, Cooperative, No acute distress, Other ( The patient appears well, comfortable no distress) Limitations: No limitations - Head Head exam: Atraumatic, Normocephalic, Normal inspection - Eye Eye exam: Normal appearance. negative: Conjunctival injection, Periorbital swelling - ENT ENT exam: Normal exam, Mucous membranes moist, Normal orophraynx Ear exam: Normal external inspection Nasal Exam: Normal inspection Mouth exam: Normal external inspection Teeth exam: Normal inspection Throat exam: Normal inspection - Neck Neck exam: Normal inspection, Full ROM. negative: Tenderness - Respiratory Respiratory exam: Decreased breath sounds. negative: Accessory muscle use, Prolonged expiratory, Rales, Respiratory distress, Rhonchi, Stridor, Wheezes - Cardiovascular Cardiovascular Exam: Regular rate, Normal rhythm, Normal heart sounds - GI/Abdominal GI/Abdominal exam: Soft, Tenderness (The abdomen at this time is very soft with bowel sounds. No pain to deep palpation in the RUQ, RLQ, LUQ. He is tender in the LLQ, no mass, no rash.). negative: Distended, Hernia, Rebound, Rigid Course Vital Signs 02/12/17 11:41 Temperature 97.7 F Pulse Rate 99 H Respiratory 16 Rate Blood Pressure 111/79 Pulse Ox 96 - Reevaluation(s) Reevaluation #1: EMR reviewed 01/14/17 EGD/colonoscopy: duodenitis, anastomotic adenomatous polyp. Bx negative for celiac, adenoma of polyp, 12/10/[address] Bush for COPD 02/12/17 12:18 Reevaluation #2: The labs were reviewed WBC count is 21 with 85% N. No acute changes of the CMP or Lipase. UA is pending. 02/12/17 12:53 Reevaluation #3: The patient states he had a fairly large bowel movement that was hard. He states this provided him with relief of most of the pain at this time. 02/12/17 13:22 UA is negative. Pt reports pain returning. Oral contrast tolerated. CT at 2: 30pm 02/12/17 13:56 Reevaluation #4: CT demonstrates acute diverticulitis of the sigmoid without free fluid or perforation, or free air. The patient informs me he has an appointment with Dr Yu on Tuesday at 8am to follow up an abnormal colonoscopy If the patient is in the hospital at that time Dr Yu could be consulted. 02/12/17 15:44 - Consultations Consultation #1: I SW Dr Bush. He will admit the patient for IV antibiotics and recheck labs in AM Medical Decision Making - Lab Data Result diagrams: 02/12/17 12:15 02/12/17 12:15 Disposition Disposition: Admit Clinical Impression: Sigmoid diverticulitis, Leukocytosis Abdominal pain Qualifiers: Abdominal location: generalized Qualified Code(s): R10.84 - Generalized abdominal pain Decision to Admit: Admit from ER Decision to Admit Date: 02/12/17 Decision to Admit Time: 15:34 Forms: Patient Portal Access Time of Disposition: 15:34
[2017-02-12 12:26] LABS: HEMATOCRIT 35.8 % (42.0-52.0); HEMOGLOBIN 11.5 gm/dl (14.0-18.0); MEAN CELL VOLUME 88.2 fl (81-97); MEAN CORPUSCULAR HEMOGLOBIN 28.3 pg (27-33); MEAN CORPUSCULAR HGB CONC 32.1 g/dl (32-36); MEAN PLATELET VOLUME 9.5 fl (7.4-10.4); PLATELET COUNT 555 K/uL (130-400); RED BLOOD COUNT 4.06 M/uL (4.40-5.70); RED CELL DISTRIBUTION WIDTH 14.8 % (11.5-14.5)
[2017-02-12 12:32] LABS: ALBUMIN 4.1 gm/dL (3.5-5.0); ALKALINE PHOSPHATASE 84 U/L (38-126); ALT/SGPT 32 U/L (21-72); ANION GAP 7.1 (7-16); AST/SGOT 19 U/L (17-59); BILIRUBIN,TOTAL 0.56 mg/dL (0.2-1.3); BLOOD UREA NITROGEN 14 mg/dL (9-20); CARBON DIOXIDE 29.9 mmol/L (22-30); CREATININE 0.9 mg/dL (0.66-1.25); EST GLOMERULAR FILTRATION RATE > 60 ml/min; GLUCOSE,RANDOM 88 mg/dL (70-110); LIPASE 38 U/L (23-300); TOTAL PROTEIN 7.5 gm/dL (6.3-8.2)
[2017-02-12 12:33] LABS: PARTIAL THROMBOPLASTIN TIME 29.8 SECONDS (24.5-39.1); PROTHROMBIN TIME (PATIENT) 11.3 SECONDS (9.5-12.1)
[2017-02-12 12:35] LABS: ANISOCYTOSIS 1+; OVALOCYTES 1+
[2017-02-12 12:51] LABS: WHITE BLOOD COUNT W/O DIFF 21.2 K/uL (4.2-12.2)
[2017-02-12 13:30] LABS: URINE APPEARANCE CLEAR; URINE BILIRUBIN NEGATIVE (NEGATIVE); URINE BLOOD NEGATIVE (NEGATIVE); URINE COLOR YELLOW; URINE GLUCOSE (UA) NEGATIVE (NEGATIVE); URINE KETONE NEGATIVE (NEGATIVE); URINE LEUKOCYTE ESTERASE NEGATIVE (NEGATIVE); URINE NITRITE NEGATIVE (NEGATIVE); URINE PROTEIN NEGATIVE (NEGATIVE); URINE UROBILINOGEN 0.2 E.U./dL (0.20 - 1.00)
[2017-02-12] MEDS ORDERED: METRONIDAZOLE IVPB 500 MG in SODIUM CHLORIDE 1 BAG IVPB SCH (15:30)
[2017-02-12] MEDS ORDERED: CIPROFLOXACIN LACTATE/D5W 400 MG in DEXTROSE 1 BAG IVPB SCH (15:30)
[2017-02-12] MEDS ORDERED: ALBUTEROL SULFATE (0.083%) 2.5 MG/3 ML NEB INH PRN (16:49)
[2017-02-12] MEDS ORDERED: BUDESONIDE 0.5 MG IH SCH (16:49)
[2017-02-12] MEDS ORDERED: ONDANSETRON HCL IV 4 MG/2 ML VIAL IVP PRN (16:49)
[2017-02-12] MEDS ORDERED: ACETAMINOPHEN 1,000 MG in SODIUM CHLORIDE 1 BAG IVPB PRN (16:49)
[2017-02-12] MEDS ORDERED: IPRATROPIUM BR 0.02% NEB (0.5MG) INH PRN (16:49)
[2017-02-12] MEDS: METRONIDAZOLE IVPB 500 MG in SODIUM CHLORIDE 1 BAG IVPB SCH (17:23)
[2017-02-12] MEDS: CIPROFLOXACIN LACTATE/D5W 400 MG in DEXTROSE 1 BAG IVPB SCH (17:24)
[2017-02-12] MEDS: [UNRECOGNIZED DRUG - OTHER] IH SCH (17:41)
[2017-02-12] MEDS: BUDESONIDE 0.5 MG/2 ML INH SCH (21:08)
[2017-02-12] MEDS ORDERED: TRAZODONE HCL 50 MG PO SCH (22:00)
[2017-02-12] MEDS: NICOTINE14 MG/24 HOUR PATCH TD SCH (22:22)
[2017-02-12] MEDS: 0.9 % SODIUM CHLORIDE 1000ML 1,000 ML IV PRN (22:22)
[2017-02-12] MEDS: TRAZODONE 50 MG TABLET PO SCH (22:22)
[2017-02-12] MEDS: DULOXETINE HCL 30 MG CAPSULE.DR PO SCH (22:23)
[2017-02-13] MEDS: METRONIDAZOLE IVPB 500 MG in SODIUM CHLORIDE 1 BAG IVPB SCH ×3 (00:58→17:38)
[2017-02-13] MEDS: CIPROFLOXACIN LACTATE/D5W 400 MG in DEXTROSE 1 BAG IVPB SCH ×2 (04:00→16:32)
[2017-02-13 06:25] LABS: BASO % 0.4 % (0-6); HEMATOCRIT 31.9 % (42.0-52.0); HEMOGLOBIN 9.8 gm/dl (14.0-18.0); LYMPH % 12.5 % (16-45); MEAN CELL VOLUME 89.4 fl (81-97); MEAN CORPUSCULAR HGB CONC 30.7 g/dl (32-36); MEAN PLATELET VOLUME 9.8 fl (7.4-10.4); MONO % 8.1 % (0-9); PLATELET COUNT 457 K/uL (130-400); RED BLOOD COUNT 3.57 M/uL (4.40-5.70); RED CELL DISTRIBUTION WIDTH 14.5 % (11.5-14.5); WHITE BLOOD COUNT W/O DIFF 11.2 K/uL (4.2-12.2)
[2017-02-13 06:28] LABS: MEAN CORPUSCULAR HEMOGLOBIN 27.4 pg (27-33)
[2017-02-13 06:32] LABS: ANION GAP 5.9 (7-16); BLOOD UREA NITROGEN 7 mg/dL (9-20); CARBON DIOXIDE 29.1 mmol/L (22-30); CREATININE 0.8 mg/dL (0.66-1.25); EST GLOMERULAR FILTRATION RATE > 60 ml/min; GLUCOSE,RANDOM 94 mg/dL (70-110)
[2017-02-13] MEDS ORDERED: PANTOPRAZOLE SODIUM 40 MG TABLET PO SCH (07:00)
[2017-02-13] MEDS: BUDESONIDE 0.5 MG/2 ML INH SCH ×2 (08:03→21:53)
[2017-02-13] MEDS: [UNRECOGNIZED DRUG - OTHER] IH SCH ×2 (08:04→09:14)
[2017-02-13] MEDS ORDERED: ACETAMINOPHEN 325 MG TAB PO PRN (08:18)
[2017-02-13] MEDS: ANORO ELIPTA PO SCH (09:44)
[2017-02-13] MEDS ORDERED: BUPROPION HCL 300 MG PO SCH (10:00)
[2017-02-13] MEDS ORDERED: PANTOPRAZOLE SODIUM 20 MG PO SCH (10:00)
[2017-02-13] MEDS: LEVOTHYROXINE SODIUM 75 MCG TABLET PO SCH (10:29)
[2017-02-13] MEDS: BUPROPION HCL 150 MG TAB.SR.12H PO SCH (10:29)
[2017-02-13] MEDS: ENOXAPARIN 40 MG/0.4 ML SYR SQ SCH (10:30)
[2017-02-13] MEDS: DULOXETINE HCL 30 MG CAPSULE.DR PO SCH ×2 (10:30→21:53)
[2017-02-13] MEDS: 0.9 % SODIUM CHLORIDE 1000ML 1,000 ML IV PRN (12:23)
[2017-02-13] MEDS: NICOTINE14 MG/24 HOUR PATCH TD SCH (21:53)
[2017-02-13] MEDS: TRAZODONE 50 MG TABLET PO SCH (21:53)
[2017-02-14] MEDS: METRONIDAZOLE IVPB 500 MG in SODIUM CHLORIDE 1 BAG IVPB SCH ×3 (01:27→18:14)
[2017-02-14] MEDS: 0.9 % SODIUM CHLORIDE 1000ML 1,000 ML IV PRN ×2 (01:29→14:34)
[2017-02-14] MEDS: CIPROFLOXACIN LACTATE/D5W 400 MG in DEXTROSE 1 BAG IVPB SCH ×2 (04:00→16:04)
[2017-02-14] MEDS: PANTOPRAZOLE SODIUM 40 MG TABLET PO SCH (06:42)
[2017-02-14] MEDS: LEVOTHYROXINE SODIUM 75 MCG TABLET PO SCH (06:42)
[2017-02-14] MEDS: BUDESONIDE 0.5 MG/2 ML INH SCH ×2 (08:06→21:12)
[2017-02-14] MEDS: ANORO ELIPTA PO SCH (08:07)
[2017-02-14] MEDS: BUPROPION HCL 150 MG TAB.SR.12H PO SCH (09:20)
[2017-02-14] MEDS: DULOXETINE HCL 30 MG CAPSULE.DR PO SCH ×2 (09:20→21:09)
[2017-02-14] MEDS: ENOXAPARIN 40 MG/0.4 ML SYR SQ SCH (09:21)
--- NOTE | 2017-02-14 09:22 | CT SCAN REPORT ---
EXAM: CT SCAN OF THE ABDOMEN AND PELVIS WITHOUT CONTRAST HISTORY: LEFT LOWER QUADRANT ABDOMINAL PAIN FOR THE PAST TWO DAYS. TECHNIQUE: Standard CT imaging of the abdomen and pelvis was performed without intravenous contrast. Oral contrast was utilized. Comparison: 03/21/16. FINDINGS: There are focal infiltrates at the right lung base with a slightly nodular component. These appear similar to the previous examination and may reflect areas of chronic parenchymal scarring. Emphysematous changes are present at the left lung base. The liver, gallbladder, biliary tree, pancreas, spleen, and adrenal glands are normal. There is a 2 mm nonobstructing stone at the inferior pole of the right kidney. There is no hydronephrosis or obstructing calculus. Extensive atherosclerotic calcifications are present within the aorta with no aneurysm. There is no retroperitoneal lymphadenopathy. The stomach and epigastrium are normal. There are scattered diverticula within the descending and sigmoid colon regions. There is abnormal wall thickening of the sigmoid colon with adjacent fat stranding consistent with acute diverticulitis. There is no evidence for abscess or pneumoperitoneum. Post surgical changes are present within the bowel in the mid abdomen. There is no obstruction or ascites. the urinary bladder and prostate gland are within normal limits. There are no acute osseous abnormalities. Degenerative changes are present within the spine. IMPRESSION: 1. SIGMOID DIVERTICULITIS WITH NO EVIDENCE FOR ABSCESS OR PNEUMOPERITONEUM. 2. 2 MM NONOBSTRUCTING STONE WITHIN THE RIGHT KIDNEY. 3. NODULAR INFILTRATES AT THE RIGHT LUNG BASE WHICH APPEAR SIMILAR TO THE PREVIOUS EXAMINATION AND ARE LIKELY CHRONIC IN NATURE. 4. EXTENSIVE ATHEROSCLEROTIC CALCIFICATIONS WITHIN THE ABDOMINAL AORTA. JOB NUMBER: [id number] [facility]
--- NOTE | 2017-02-14 09:56 | History and Physical Report ---
CHIEF COMPLAINT: Abdominal pain left lower quadrant, history of diverticulitis and multiple abdominal surgeries. HISTORY OF PRESENT ILLNESS: This 56-year-old male presented to the Emergency Department last night stating he had left lower quadrant abdominal pain which started two days prior to admission. No vomiting. He had a large bowel movement in the Emergency Room and he felt a little better, but then the pain came back. The CAT scan revealed diverticulitis of the sigmoid colon, chronic infiltrate in the lung and a nonobstructing kidney stone. The patient was admitted to the hospital for IV antibiotics and pain control. 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 Yu tomorrow. Also he has a history of metastatic lung cancer. He also had a biopsy of his neck which showed squamous cell cancer of the neck, I assume it is skin. Tobacco use disorder and he is still smoking less than ten cigarettes a day. He also has hypothyroidism and some anxiety. PAST SURGICAL HISTORY: Throat surgery, lung surgery, colon surgery, and small bowel surgery. Perforation of the colon in 2015. MEDICATIONS ON ADMISSION: He is on Ellipta one puff a day, Trazodone 50 mg at h.s., Protonix 20 mg q daily, Levothyroxine 75 mcg q daily, he uses a nebulizer with Atrovent and Albuterol four times a day, ferrous sulfate iron 325 q daily, Cymbalta 60 mg b.i.d., Wellbutrin 300 mg daily, Pulmicort 0.5 mg nebulization q twelve hours, and he has a ProAir inhaler two puffs q four hours prn. ALLERGIES: He has no known allergies. SOCIAL HISTORY: No alcohol or drug use. FAMILY HISTORY: Alcoholism with the father, brother , and sister. Cancer with the father, mother, brother and sister. Depression with the mother. Diabetes with the father. Respiratory problems with the brother and sister. REVIEW OF SYSTEMS: HEENT: No upper respiratory infectious symptoms, cough, cold or congestion. Cardiovascular: No chest pain, palpitations, or arrhythmias. Respiratory: He uses home oxygen at two liters per minute for the last six months. He has COPD. History of lung cancer. No coughing or difficulty breathing now. GI: See chief complaint. He has left lower quadrant abdominal pain. No vomiting. He had a bowel movement in the Emergency Department which was hard and formed. Genitourinary: No dysuria, hematuria, frequency, or burning on urination. Musculoskeletal: He has some arthritis in his joints, but he is able to move all four extremities and ambulates well. Neurologic: No CVA, paralysis, or paresthesias. Endocrine: No diabetes. He does have hypothyroidism. Integument: No rash, ulcers, change in moles or yellow skin. PHYSICAL EXAMINATION: Height is 5'7", weight is 121 pounds. Vital signs: Temperature is 97.5, pulse is 73, blood pressure is 144/73, respiratory rate is 18, pulse ox is 95% on two liters nasal cannula. HEENT: Pupils are equal and reactive to light and accommodation. Extraocular muscles are intact. Throat is clear. Nose is clear. Tympanic membranes are ibarra. NECK: Supple. No jugular venous distention. No hepatojugular reflex. No carotid bruits. Thyroid is smooth. CARDIOVASCULAR: Regular rate and rhythm without murmurs, clicks, rubs or gallops. RESPIRATORY: Clear to auscultation. Breath sounds are decreased bilaterally. ABDOMEN: Soft, nontender. There is pain in the left lower quadrant on palpation. No rebound or rigidity. EXTREMITIES: No pitting edema. No cyanosis. No clubbing. Full range of motion. Peripheral pulses are good. BREASTS: Normal male breasts. RECTAL: Deferred. GENITALIA: Deferred. NEUROLOGICAL: Cranial nerves II through XII intact. No gross defects. Sensation normal. Strength normal. Deep tendon reflexes are equal bilaterally. Babinski's negative. MENTAL STATUS: Alert and oriented times three. IMPRESSION: 1. ACUTE DIVERTICULITIS. 2. LEFT LOWER QUADRANT ABDOMINAL PAIN. 3. HISTORY OF LUNG CANCER. 4. HISTORY OF SKIN CANCER IN THE NECK. 5. COPD WITH HOME OXYGEN TWO LITERS PER MINUTE NASAL CANNULA. 6. HYPOXIA SECONDARY TO COPD AND REQUIRING HOME OXYGEN FOR THE LAST SIX MONTHS. 7. TOBACCO USE DISORDER. 8. STATUS POST HISTORY OF AN ABNORMAL POLYP RECENTLY FOUND ON COLONOSCOPY. HE HAS AN APPOINTMENT WITH DR. YU TOMORROW AN OUTPATIENT. HE MAY NEED TO SEE HIM A CONSULTATION INPATIENT. PLAN: IV Cipro, IV Flagyl, and pain control. Fluids as needed. Nikita Bush D.O. Date & Time JOB NUMBER: [id number] [facility]
[2017-02-14] MEDS: NICOTINE14 MG/24 HOUR PATCH TD SCH (21:07)
[2017-02-14] MEDS: TRAZODONE 50 MG TABLET PO SCH (21:09)
[2017-02-15] MEDS: METRONIDAZOLE IVPB 500 MG in SODIUM CHLORIDE 1 BAG IVPB SCH (00:47)
[2017-02-15] MEDS: CIPROFLOXACIN LACTATE/D5W 400 MG in DEXTROSE 1 BAG IVPB SCH (03:48)
[2017-02-15] MEDS: BUDESONIDE 0.5 MG/2 ML INH SCH (06:40)
[2017-02-15] MEDS: ANORO ELIPTA PO SCH ×2 (06:43)
[2017-02-15] MEDS: LEVOTHYROXINE SODIUM 75 MCG TABLET PO SCH (07:25)
[2017-02-15] MEDS: PANTOPRAZOLE SODIUM 40 MG TABLET PO SCH (07:25)
--- NOTE | 2017-02-15 07:52 | Discharge Note ---
Discharge Note - Date Date of Discharge Note: 02/15/17 Disposition: Home, Self-Care Condition: (1) Good Additional Instructions: 2 Activity: 2 Diet: 2 Consults: []WITH DR ALMAZAN TuesdayFEBRUARY 21 AT 0815 AT [facility] 2 Follow Up: [] 2 Dressing/Wound Care: (Type) (Change) 2 Additional: [] follow up with Dr Bush in the office on february 17 Prescriptions: Metronidazole [Flagyl] 500 mg PO Q8HR #30 tablet Ciprofloxacin HCl [Cipro] 500 mg PO Q12HR #20 tablet Referrals: Jim Bob M.D., F.A.C.P. [Primary Care Provider] - Forms: Patient Portal Access Activity at Discharge: Increase Activity as Tolerated
[2017-02-15] MEDS: DULOXETINE HCL 30 MG CAPSULE.DR PO SCH (09:11)
[2017-02-15] MEDS: BUPROPION HCL 150 MG TAB.SR.12H PO SCH (09:11)
--- NOTE | 2017-02-16 10:10 | Discharge Summary ---
DATE OF ADMISSION: 02/12/2017 DATE OF DISCHARGE: 02/15/2017 DISCHARGE DIAGNOSES: 1. Acute diverticulitis. 2. History of COPD. 3. Hypoxia with home oxygen use at 2 L per minute nasal cannula. 4. History of abnormal colonoscopy, planning to see Dr. Yu as an outpatient on Tuesday, the 21 of February. 5. History of lung cancer. 6. History of tobacco use disorder, stopped smoking about 6 months ago. ATTENDING PHYSICIAN: Nikita Bush D.O. PRIMARY DOCTOR: Vanessa Bob M.D., [facility] REASON FOR HOSPITALIZATION: Abdominal pain, left lower quadrant, history of diverticulitis, multiple abdominal surgeries. HISTORY OF PRESENT ILLNESS: This 56-year-old male presented to the emergency department the night before stating he had left lower quadrant abdominal pain which started actually 2 days before admission. No vomiting. He had a large bowel movement in the emergency department. He felt a little better but the pain came back. The CAT scan revealed diverticulitis of the sigmoid colon, chronic infiltrate in the lung and nonobstructing kidney stone. The patient was admitted to the hospital for IV antibiotics and pain control. SIGNIFICANT FINDINGS: The CAT scan showed sigmoid diverticulitis with no evidence for abscess or pneumoperitoneum, 2 mm nonobstructing stone within the right kidney, nodular infiltrate at the right lung base which appeared similar to the previous exam, likely chronic in nature, extensive atherosclerotic calcifications within the abdominal aorta. LABORATORY: WBC in the emergency department was 21,200, hemoglobin was 11.5. Segs were 85, lymphs were 8. Urine was negative. BUN 14, creatinine 0.9, potassium was 4.2. THERAPY PROVIDED: The patient given IV Cipro, IV Flagyl and IV Tylenol and switched over to oral Tylenol. HOSPITAL COURSE: He gradually improved and on discharge he was eating, no abdominal pain, and ambulated around the room. He still uses home oxygen because he is hypoxic from his COPD. CONDITION AT DISCHARGE: Much improved. DISCHARGE INSTRUCTIONS: Follow up with Dr. Bush in the office on February 17 and then will follow up with Dr. Bob after that. Cipro 500 mg b.i.d. for 10 days, Flagyl 500 mg t.i.d. for 10 days. Follow up with Dr. Yu on February 21 for a followup on his abnormal colonoscopy. Continue his home medications, trazodone 50 mg at h.s., Protonix 20 mg daily, Cymbalta 60 mg b.i.d., Wellbutrin 300 mg daily, levothyroxine 75 mcg per day, ferrous sulfate 325 per day, albuterol sulfate inhaler 1 puff to 2 puffs every 6 hours p.r.n. for breakthrough, Pulmicort 0.5 mg q.12 hours, Ellipta 1 puff daily. Nikita Bush DO CC: VANESSA BOB MD, FACP MTDD
== END 2017-02-15 09:35 | disposition home or self-care (01) ==
LOC: ER 11:35 → INTOOBSV 16:26 → MEDSURG 16:26
PROVIDERS: ADMIT Emergency Medicine; ATTEND Emergency Medicine
DX: K57.32 Diverticulitis of large intestine without perforation or abscess without bleeding (principal); F17.200 Nicotine dependence, unspecified, uncomplicated; Z85.118 Personal history of other malignant neoplasm of bronchus and lung; J44.9 Chronic obstructive pulmonary disease, unspecified; D12.6 Benign neoplasm of colon, unspecified; E03.9 Hypothyroidism, unspecified; Z85.828 Personal history of other malignant neoplasm of skin
CPT/HCPCS: 74176; 80048; 80076; 81003; 83605; 83690; 85025; 85027; 85610; 85730; 94640; 94761; 96365; 99220; 99239; 99285; J1650; J3490; J7030

== ENCOUNTER 2017-04-09 15:45 | Emergency (ER) | payer BC ==
[2017-04-09] MEDS ORDERED: FAMOTIDINE IV 20 MG/2 ML VIAL IVP ONE (16:09)
[2017-04-09] MEDS ORDERED: 0.9 % SODIUM CHLORIDE 1,000 ML BAG IV ONE (16:09)
--- NOTE | 2017-04-09 16:09 | Emergency Department Record ---
History of Present Illness - General Chief Complaint: Abdominal Pain Stated Complaint: ABD PAINS AND CONSTIPATION Time Seen by Provider: 04/09/17 16:02 Source: Patient Mode of Arrival: Ambulatory - History of Present Illness Initial Comments: The patient has left sided abdominal pain which waxes and wanes after having 2 days of green diarrhea, and constipation. He had a normal BM today, but is concerned because of his chronic stomach problems since he had a bowel resection and ruptured bowel about a year ago by Dr. Yu. He denies f,c,n,v, back pain. He has a chronic cough, COPD, and uses home oxygen. MD Complaint: Abdominal pain Onset/Timin -: Days(s) Location: Periumbilical, LLQ, RLQ Severity: Moderate Quality: Aching Consistency: Constant Improves With: Nothing Worsens With: Nothing - Related Data Home Medications Medication Instructions Recorded Confirmed Last Taken Albuterol Sulfate [Proair Hfa] 1 puff INH Q6H PRN 04/05/15 04/09/17 1 Day Ago ~04/08/17 Levothyroxine Sodium 75 mcg PO DAILY 04/05/15 04/09/17 1 Day Ago ~04/08/17 Duloxetine HCl [Cymbalta] 60 mg PO BID 02/01/16 04/09/17 1 Day Ago ~04/08/17 Umeclidinium Brm/Vilanterol Tr 1 each IH DAILY 02/01/16 04/09/17 1 Day Ago [Anoro Ellipta 62.5-25 Mcg INH] ~04/08/17 Pantoprazole Sodium [Protonix] 20 mg PO DAILY 03/21/16 04/09/17 1 Day Ago ~04/08/17 Bupropion HCl [Wellbutrin Xl] 300 mg PO DAILY 01/07/17 04/09/17 1 Day Ago ~04/08/17 Previous Rx's Medication Instructions Recorded Trazodone HCl 50 mg PO QHS #0 02/24/16 Budesonide [Pulmicort] 0.5 mg IH Q12H #60 nebu 12/12/16 Ciprofloxacin HCl [Cipro] 500 mg PO Q12HR #19 tablet 04/09/17 Metronidazole [Flagyl] 500 mg PO QID #39 tablet 04/09/17 Allergies Allergy/AdvReac Type Severity Reaction Status Date / Time No Known Drug Allergies Allergy Verified 04/09/17 15:58 Travel Screening - Travel/Exposure Within Last 30 Days Have you traveled within the last 30 days?: No - Travel/Exposure Within Last Year Have you traveled outside the [place] in the last year?: No - Additonal Travel Details Have you been exposed to anyone with a communicable illness?: No - Travel Symptoms Symptom Screening: None Review of Systems Reviewed: No additional complaints except as noted below Constitutional: Reports: As per HPI. Denies: Chills, Fever, Malaise, Night sweats, Weakness, Weight change Eyes: Reports: As per HPI. Denies: Eye discharge, Eye pain, Photophobia, Vision change ENT: Reports: As per HPI. Denies: Congestion, Dental pain, Ear pain, Epistaxis , Hearing loss, Throat pain Respiratory: Reports: As per HPI. Denies: Cough, Dyspnea, Hemoptysis, Stridor, Wheezes Cardiovascular: Reports: As per HPI. Denies: Arrhythmia, Chest pain, Dyspnea on exertion, Edema, Murmurs, Orthopnea, Palpitations, Paroxysmal nocturnal dyspnea, Rheumatic Fever, Syncope Endocrine: Reports: As per HPI. Denies: Fatigue, Heat or cold intolerance, Polydipsia, Polyuria Gastrointestinal: Reports: As per HPI. Denies: Abdominal pain, Constipation, Diarrhea, Hematemesis, Hematochezia, Melena, Nausea, Vomiting Genitourinary: Reports: As per HPI. Denies: Dysuria, Frequency, Hematuria, Incontinence, Retention, Testicular pain, Testicular mass, Urgency Musculoskeletal: Reports: As per HPI. Denies: Arthralgia, Back pain, Gout, Joint swelling, Myalgia, Neck pain Skin: Reports: As per HPI. Denies: Bruising, Change in color, Change in hair/ nails, Lesions, Pruritus, Rash Neurological: Reports: As per HPI. Denies: Abnormal gait, Confusion, Headache, Numbness, Paresthesias, Seizure, Tingling, Tremors, Vertigo, Weakness Psychiatric: Reports: As per HPI. Denies: Anxiety, Auditory hallucinations, Depression, Homicidal thoughts, Suicidal thoughts, Visual hallucinations Hematological/Lymphatic: Reports: As per HPI. Denies: Anemia, Blood Clots, Easy bleeding, Easy bruising, Swollen glands Past Medical History - SOCIAL HISTORY Smoking Status: Former smoker Alcohol Use: None Drug Use: None - RESPIRATORY Hx Respiratory Disorders: Yes Hx COPD: Yes Hx Pneumonia: Yes Hx Sleep Apnea: Yes Hx of CPAP: (is getting soon) Comment:: Home O2 - CARDIOVASCULAR Hx Cardio Disorders: No Hx Irregular Heartbeat: (n/a) Comment:: Tolerance is fair as long as wearing O2 - NEURO Hx Neuro Disorders: No Hx Seizures: No - GI Hx GI Disorders: Yes Hx Diverticulitis: Yes Hx Reflux: Yes Comment:: colon perforation (d/t OIC) with resection, +C-diff - Hx Genitourinary Disorders: No - ENDOCRINE Hx Endocrine Disorders: Yes Hx Thyroid Disease: Yes (hypo) - MUSCULOSKELETAL Hx Musculoskeletal Disorders: No - PSYCH Hx Psych Problems: Yes Hx Anxiety: Yes Hx Depression: Yes - HEMATOLOGY/ONCOLOGY Hx Hematology/Oncology Disorders: Yes Hx Cancer: Yes (throat, lung) Hx Chemotherapy: Yes Hx Radiation Therapy: Yes Hx Blood Transfusions: Yes Hx Blood Transfusion Reaction: No Family Medical History Any Significant Family History?: Yes Hx Alcohol Use: Father, Brother/Sister Hx Cancer: Father, Mother, Brother/Sister Hx Depression: Mother Hx Diabetes: Father Hx Resp Disorders: Brother/Sister Physical Exam - General General Appearance: Alert, Oriented x3, Cooperative, Mild distress, Other (wars home oxygen for COPD) - Head Head exam: Normal inspection - Eye Eye exam: Normal appearance, PERRL Pupils: Normal accommodation - ENT ENT exam: Normal exam, Mucous membranes moist, Normal external ear exam, Normal orophraynx, TM's normal bilaterally Ear exam: Normal external inspection. negative: External canal tenderness Nasal Exam: Normal inspection. negative: Discharge, Sinus tenderness Mouth exam: Normal external inspection, Tongue normal Teeth exam: Normal inspection. negative: Dental caries Throat exam: Normal inspection. negative: Tonsillar erythema, Tonsillar exudate - Neck Neck exam: Normal inspection, Full ROM. negative: Lymphadenopathy, Meningismus , Tenderness - Respiratory Respiratory exam: Decreased breath sounds, Prolonged expiratory, Other (wearing oxygen n.c.). negative: Respiratory distress - Cardiovascular Cardiovascular Exam: Regular rate, Normal rhythm, Normal heart sounds - GI/Abdominal GI/Abdominal exam: Soft, Normal bowel sounds, Tenderness (tender L side; soft, old midline surgical scar healed.). negative: Distended, Rebound, Rigid - Rectal Rectal exam: Deferred - exam: Deferred - Extremities Extremities exam: Normal inspection, Full ROM, Normal capillary refill. negative: Tenderness - Back Back exam: Reports: Normal inspection, Full ROM. Denies: Muscle spasm, Rash noted, Tenderness - Neurological Neurological exam: Alert, CN II-XII intact, Normal gait, Oriented X3, Reflexes normal - Psychiatric Psychiatric exam: Normal affect, Normal mood - Skin Skin exam: Dry, Intact, Normal color, Warm Course Vital Signs 04/09/17 15:53 Temperature 97.6 F Pulse Rate 84 Respiratory 18 Rate Blood Pressure 136/85 Pulse Ox 95 - Reevaluation(s) Reevaluation #1: Patient declined pain medication or nausea medication at this time. 04/09/17 16:15 Reevaluation #2: Patient in CT scan. 04/09/17 19:04 Reevaluation #3: Patient is standing and waiting patiently for CT results. He states he had a BM and now he is feeling much better. All labs discussed with patient. Awaiting CT results. 04/09/17 19:28 Reevaluation #4: CT results of sigmoid diverticulitis with mass not ruled out discussed with patient. He states he is aware of a benign mass in his colnoscopy done [address] Bhardwaj and has elected NOT to have surgery on it. His PCP and Dr. Bhardwaj are aware of this. He will take antibiotics and FU with Dr. Bob. 04/09/17 19:52 Reevaluation #5: Patient declined pain medication for home. 04/09/17 19:59 Medical Decision Making - Management Options MDM Management: No Additional Work-up Planned - Data Complexity MDM Data: Labs Ordered and/or Reviewed, X-Ray Ordered and/or Reviewed (Contrast CT Abd/Pelvis: Thickened wall of sigmoid colon consistent with diverticulitis, and mass is NOT ruled out: needs follow up. Per radiologist.), EKG Ordered and/ or Reviewed - Lab Data Result diagrams: 04/09/17 16:20 04/09/17 16:20 - EKG Data -: EKG Interpreted by Pa EKG: No Acute Changes Disposition Disposition: Discharge Clinical Impression: Diverticulitis of sigmoid colon Abdominal pain Qualifiers: Abdominal location: left lower quadrant Qualified Code(s): R10.32 - Left lower quadrant pain Abdominal pain Qualifiers: Abdominal location: left lower quadrant Qualified Code(s): R10.32 - Left lower quadrant pain Disposition: Home, Self-Care Condition: (2) Stable Instructions: Constipation (ED), Abdominal Pain (ED), Diverticulitis (ED) Additional Instructions: Take antibiotics as directed until gone. Do not drink alcohol while taking Flagyl. Take Flagyl until gone as directed. Follow up with Dr. Bob and Dr. Bhardwaj as needed for your diverticulitis. Prescriptions: Ciprofloxacin HCl [Cipro] 500 mg PO Q12HR #19 tablet Metronidazole [Flagyl] 500 mg PO QID #39 tablet Forms: Patient Portal Access
[2017-04-09 16:25] LABS: BASO % 0.4 % (0-6); EOS % 2.6 % (0-6); HEMATOCRIT 35.1 % (42.0-52.0); LYMPH % 20.5 % (16-45); MEAN CELL VOLUME 86.7 fl (81-97); MEAN CORPUSCULAR HGB CONC 31.3 g/dl (32-36); MEAN PLATELET VOLUME 9.8 fl (7.4-10.4); MONO % 9.5 % (0-9); PLATELET COUNT 392 K/uL (130-400); RED BLOOD COUNT 4.05 M/uL (4.40-5.70); RED CELL DISTRIBUTION WIDTH 15.1 % (11.5-14.5); WHITE BLOOD COUNT W/O DIFF 8.1 K/uL (4.2-12.2)
[2017-04-09 16:26] LABS: MEAN CORPUSCULAR HEMOGLOBIN 27.1 pg (27-33)
[2017-04-09 16:37] LABS: ALKALINE PHOSPHATASE 74 U/L (38-126); ALT/SGPT 29 U/L (21-72); ANION GAP 4.5 (7-16); AST/SGOT 21 U/L (17-59); BILIRUBIN,TOTAL 0.33 mg/dL (0.2-1.3); BLOOD UREA NITROGEN 10 mg/dL (9-20); CARBON DIOXIDE 29.5 mmol/L (22-30); CREATININE 0.7 mg/dL (0.66-1.25); EST GLOMERULAR FILTRATION RATE > 60 ml/min; GLUCOSE,RANDOM 78 mg/dL (70-110); LIPASE 49 U/L (23-300); TOTAL PROTEIN 7.1 gm/dL (6.3-8.2)
[2017-04-09 16:58] LABS: TROPONIN I < 0.012 ng/mL (0.00-0.034)
[2017-04-09] MEDS ORDERED: CIPROFLOXACIN HCL 500 MG TABLET PO ONE (19:51)
[2017-04-09] MEDS ORDERED: METRONIDAZOLE 250 MG TABLET PO ONE (19:51)
--- NOTE | 2017-04-12 15:04 | CT SCAN REPORT ---
EXAM: CT SCAN ABDOMEN/PELVIS W CONTRAST HISTORY: CONSTIPATION. BILATERAL LOWER ABDOMINAL PAIN, WORSE IN THE LOWER LEFT QUADRANT. HISTORY OF COLON RESECTION, 02/05/2016. HISTORY OF LUNG AND THROAT CANCER. TECHNIQUE: CT of the abdomen and pelvis performed following intravenous and oral contrast administration. 100 mL of Omnipaque-300 contrast is used for this examination. COMPARISON: CT abdomen and pelvis, 03/21/2016. FINDINGS: Prominent emphysematous changes are again seen at the lung bases. No obvious lung mass seen. The cardiac silhouette is shifted into the lower right thorax presumably due to postoperative and/or emphysematous change. This finding is stable. There are two lesions again identified in the right lobe of the liver, which are unchanged from the patient's previous study likely representing hemangiomata. Liver is otherwise unremarkable. Spleen unremarkable. No pancreatic mass or inflammatory change. The bile ducts are not dilated. No calcified gallstones. No adrenal lesion seen. There is bilateral renal function. No renal mass or hydronephrosis. There are atherosclerotic changes in the abdominal aorta. There is no aneurysm. No periaortic mass or adenopathy. There are no dilated bowel loops. The sigmoid colon appears abnormal. The wall appears diffusely thickened. Etiology is uncertain. Inflammatory and/or malignant change can't be excluded. IMPRESSION: 1. APPARENT WALL THICKENING OF THE SIGMOID COLON POSSIBLY RELATED TO INFLAMMATORY CHANGE AND DIVERTICULITIS. UNDERLYING MALIGNANCY NOT EXCLUDED. CLINICAL CORRELATION AND FOLLOW-UP SUGGESTED. COLONOSCOPY COULD BE PERFORMED FOR FURTHER ASSESSMENT IF CLINICALLY WARRANTED. 2. EMPHYSEMATOUS CHANGES IN THE LOWER LUNGS. 3. TWO LIVER LESIONS UNCHANGED FROM THE PREVIOUS STUDY LIKELY DUE TO HEMANGIOMATA. 4. SEE ABOVE FOR FULL DISCUSSION. JOB NUMBER: [id number] MTDD
== END 2017-04-09 20:06 | disposition home or self-care (01) ==
LOC: ER 15:45
DX: K57.32 Diverticulitis of large intestine without perforation or abscess without bleeding (principal); J44.9 Chronic obstructive pulmonary disease, unspecified; E03.9 Hypothyroidism, unspecified
CPT/HCPCS: 74177; 80048; 80076; 83690; 84484; 85025; 94760; 96374; 99283; J3490; J7030

== ENCOUNTER 2017-07-05 12:06 | Emergency (ER) | payer BC ==
[2017-07-05] MEDS ORDERED: 0.9 % SODIUM CHLORIDE 1,000 ML BAG IV ONE (12:33)
[2017-07-05] MEDS ORDERED: ACETAMINOPHEN 1,000 MG/100 ML BTL IVPB ONE (12:37)
--- NOTE | 2017-07-05 12:39 | Emergency Department Record ---
History of Present Illness - General Chief Complaint: Abdominal Pain Stated Complaint: ABD PAIN Time Seen by Provider: 07/05/17 12:30 Source: Patient Mode of Arrival: Ambulatory Limitations: No limitations - History of Present Illness Initial Comments: 57 yo male presents with abdominal "tightness" since last night. He has COPD on home oxygen. He reports having a coughing episode and developed a tightness across the mid upper abdomen. Mild decrease in appetite but no nausea or vomiting. No blood in the stools. No back pain. His breathing is at his baseline of home oxygen dependency. PCP Lisbeth. Surgeon Aimee. Complaint: Abdominal pain Onset/Timin -: Days(s) Location: Periumbilical, Suprapubic Radiation: Epigastric, RUQ Migration to: No migration, Epigastric Consistency: Constant Improves With: Nothing Worsens With: Movement Associated Symptoms: Denies other symptoms - Related Data Home Medications Medication Instructions Recorded Confirmed Last Taken Ferrous Sulfate [Iron] 325 mg PO 07/05/17 07/05/17 Previous Rx's Medication Instructions Recorded Trazodone HCl 50 mg PO QHS #0 02/24/16 Budesonide [Pulmicort] 0.5 mg IH Q12H #60 nebu 12/12/16 Allergies Allergy/AdvReac Type Severity Reaction Status Date / Time No Known Drug Allergies Allergy Verified 04/09/17 15:58 Travel Screening - Travel/Exposure Within Last 30 Days Have you traveled within the last 30 days?: No - Travel/Exposure Within Last Year Have you traveled outside the [place] in the last year?: No - Additonal Travel Details Have you been exposed to anyone with a communicable illness?: No - Travel Symptoms Symptom Screening: None Review of Systems Constitutional: Denies: Chills, Fever, Malaise, Weakness Eyes: Denies: Eye discharge ENT: Denies: Congestion, Throat pain Respiratory: Reports: Cough (chronci at baseline), Dyspnea (chronic at baseline) . Denies: Hemoptysis, Stridor, Wheezes Cardiovascular: Denies: Chest pain, Palpitations, Syncope Endocrine: Reports: Fatigue (chronic) Gastrointestinal: Reports: Abdominal pain, Nausea. Denies: Constipation, Diarrhea, Hematemesis, Hematochezia, Melena, Vomiting Genitourinary: Denies: Dysuria, Frequency Musculoskeletal: Denies: Arthralgia Skin: Denies: Bruising, Change in color, Rash Neurological: Denies: Confusion, Headache, Numbness, Weakness Psychiatric: Reports: Anxiety Hematological/Lymphatic: Denies: Blood Clots, Easy bleeding, Easy bruising, Swollen glands Past Medical History - SOCIAL HISTORY Smoking Status: Former smoker Alcohol Use: None Drug Use: None - RESPIRATORY Hx Respiratory Disorders: Yes Hx COPD: Yes Hx Pneumonia: Yes Hx Sleep Apnea: Yes Hx of CPAP: (is getting soon) Comment:: Home O2 - CARDIOVASCULAR Hx Cardio Disorders: No Hx Irregular Heartbeat: (n/a) Comment:: Tolerance is fair as long as wearing O2 - NEURO Hx Neuro Disorders: No - GI Hx GI Disorders: Yes Hx Diverticulitis: Yes Hx Reflux: Yes Comment:: colon perforation (d/t OIC) with resection, +C-diff - Hx Genitourinary Disorders: No - ENDOCRINE Hx Endocrine Disorders: Yes Hx Diabetes: No Hx Thyroid Disease: Yes (hypo) - MUSCULOSKELETAL Hx Musculoskeletal Disorders: No - PSYCH Hx Psych Problems: Yes Hx Anxiety: Yes Hx Depression: Yes - HEMATOLOGY/ONCOLOGY Hx Hematology/Oncology Disorders: Yes Hx Cancer: Yes (throat, lung) Hx Chemotherapy: Yes Hx Radiation Therapy: Yes Hx Blood Transfusions: Yes Hx Blood Transfusion Reaction: No Family Medical History Any Significant Family History?: No Hx Alcohol Use: Father, Brother/Sister Hx Cancer: Father, Mother, Brother/Sister Hx Depression: Mother Hx Diabetes: Father Hx Resp Disorders: Brother/Sister Physical Exam - General General Appearance: Alert, Oriented x3, Cooperative, No acute distress Limitations: No limitations - Head Head exam: Normal inspection - Eye Eye exam: Normal appearance. negative: Conjunctival injection, Periorbital swelling - ENT ENT exam: Normal exam, Mucous membranes moist Ear exam: Normal external inspection Nasal Exam: Normal inspection Mouth exam: Normal external inspection - Neck Neck exam: Normal inspection - Respiratory Respiratory exam: Decreased breath sounds. negative: Accessory muscle use, Prolonged expiratory, Respiratory distress, Rhonchi, Stridor, Wheezes - Cardiovascular Cardiovascular Exam: Regular rate, Normal rhythm, Normal heart sounds - GI/Abdominal GI/Abdominal exam: Soft, Normal bowel sounds, Other (Very soft abdomen, no masses or hernia). negative: Distended, Guarding, Hernia, Rebound, Rigid, Tenderness - Rectal Rectal exam: Deferred - exam: Deferred - Extremities Extremities exam: Normal inspection, Full ROM, Normal capillary refill. negative: Tenderness - Back Back exam: Reports: Normal inspection, Full ROM. Denies: Muscle spasm, Rash noted, Tenderness - Neurological Neurological exam: Alert, Normal gait, Oriented X3 - Psychiatric Psychiatric exam: Normal affect, Normal mood - Skin Skin exam: Dry, Intact, Normal color, Warm Course Vital Signs 07/05/17 12:08 Temperature 98.0 F Pulse Rate 76 Respiratory 16 Rate Blood Pressure 130/93 Pulse Ox 97 - Reevaluation(s) Reevaluation #1: No acute changes on the CBC,CMP or Lipase. 07/05/17 13:25 Reevaluation #2: The UA is negative The labs, vitals, XR are normal. No fever or vomiting. Normal bowel movements. The plan is for DC home with very close follow up as needed in the ED He will return if he has fever, pain, vomiting or any new concerns. 07/05/17 14:27 Medical Decision Making - Lab Data Result diagrams: 07/05/17 12:40 07/05/17 12:40 Disposition Disposition: Discharge Clinical Impression: Abdominal pain Qualifiers: Abdominal location: unspecified location Qualified Code(s): R10.9 - Unspecified abdominal pain Disposition: Home, Self-Care Condition: (1) Good Instructions: Abdominal Pain (ED) Additional Instructions: Stay well hydrated Return if you have fever, pain, vomiting or any new concerns Call your doctor for a close recheck this week. Forms: Patient Portal Access Time of Disposition: 14:29 Quality - Quality Measures Quality Measures: N/A - Blood Pressure Screening Does Patient Have Any of the Following: No Blood Pressure Classification: Hypertensive Reading Systolic Measurement: 130 Diastolic Measurement: 93 Screening for High Blood Pressure: < Pre-Hypertensive BP, F/U Documented > [ [id number]] Pre-Hypertensive Follow-up Interventions: Referral to alternative/primary care provider.
[2017-07-05 13:00] LABS: BASO % 0.5 % (0-6); EOS % 1.3 % (0-6); GRAN % 78.2 % (47-80); HEMATOCRIT 39.8 % (42.0-52.0); HEMOGLOBIN 12.6 gm/dl (14.0-18.0); LYMPH % 10.8 % (16-45); MEAN CELL VOLUME 88.8 fl (81-97); MEAN CORPUSCULAR HEMOGLOBIN 28.1 pg (27-33); MEAN CORPUSCULAR HGB CONC 31.7 g/dl (32-36); MEAN PLATELET VOLUME 10.1 fl (7.4-10.4); MONO % 9.2 % (0-9); PLATELET COUNT 388 K/uL (130-400); RED BLOOD COUNT 4.48 M/uL (4.40-5.70); RED CELL DISTRIBUTION WIDTH 15.2 % (11.5-14.5); WHITE BLOOD COUNT W/O DIFF 8.5 K/uL (4.2-12.2)
[2017-07-05 13:13] LABS: ALBUMIN 4.7 gm/dL (3.5-5.0); ALKALINE PHOSPHATASE 70 U/L (38-126); ALT/SGPT 48 U/L (21-72); ANION GAP 10.1 (7-16); AST/SGOT 38 U/L (17-59); BILIRUBIN,TOTAL 0.66 mg/dL (0.2-1.3); BLOOD UREA NITROGEN 14 mg/dL (9-20); CARBON DIOXIDE 32.9 mmol/L (22-30); CREATININE 0.7 mg/dL (0.66-1.25); EST GLOMERULAR FILTRATION RATE > 60 ml/min; GLUCOSE,RANDOM 96 mg/dL (70-110); LIPASE 105 U/L (23-300); TOTAL PROTEIN 8.1 gm/dL (6.3-8.2)
[2017-07-05 13:50] LABS: URINE APPEARANCE CLEAR; URINE BILIRUBIN NEGATIVE (NEGATIVE); URINE BLOOD NEGATIVE (NEGATIVE); URINE COLOR YELLOW; URINE GLUCOSE (UA) NEGATIVE (NEGATIVE); URINE KETONE NEGATIVE (NEGATIVE); URINE LEUKOCYTE ESTERASE NEGATIVE (NEGATIVE); URINE NITRITE NEGATIVE (NEGATIVE); URINE PROTEIN NEGATIVE (NEGATIVE); URINE UROBILINOGEN 0.2 E.U./dL (0.20 - 1.00)
--- NOTE | 2017-07-06 10:23 | RADIOLOGY REPORT ---
EXAM: ACUTE ABDOMEN SERIES HISTORY: LOSS OF APPETITE, DIFFUSE ABDOMINAL PAIN, CRAMPING, FORMER SMOKER. TECHNIQUE: PA view of the chest and multiple views of the abdomen were obtained. Comparison: Acute abdominal series 02/29/16. FINDINGS: Diffuse lung lucency consistent with advanced emphysema. Chronic blunting right costophrenic angle likely due to scarring. The cardiac silhouette is not enlarged. The diaphragm is flattened. The osseous structures are grossly unremarkable. No free air. Small amount of gas throughout nondistended small and large bowel throughout the abdomen. Severe aortoiliac calcification. IMPRESSION: 1. ADVANCED EMPHYSEMA. NO ACUTE INTRATHORACIC PROCESS. 2. NONOBSTRUCTIVE BOWEL GAS PATTERN WITH NO FREE AIR. J[facility]BER: [id number] [facility]
== END 2017-07-05 15:20 | disposition home or self-care (01) ==
LOC: ER 12:06
DX: R10.13 Epigastric pain (principal); J44.9 Chronic obstructive pulmonary disease, unspecified; Z99.81 Dependence on supplemental oxygen; Z87.891 Personal history of nicotine dependence
CPT/HCPCS: 74022; 80048; 80076; 81003; 83690; 85025; 96365; 99284; J7030

== ENCOUNTER 2017-09-25 15:57 | Observation (INO) | payer BC ==
[2017-09-25] MEDS ORDERED: IPRATROPIUM/ALBUTEROL (0.5MG/3MG) NEB INH ONE (16:03)
[2017-09-25] MEDS ORDERED: METHYLPREDNISOLONE PF 125MG/VIAL IVP ONE (16:03)
--- NOTE | 2017-09-25 16:09 | Emergency Department Record ---
History of Present Illness - General Chief Complaint: Shortness of breath Stated Complaint: SUSANA Time Seen by Provider: 09/25/17 16:02 Source: Patient Mode of Arrival: Ambulatory Limitations: No limitations - History of Present Illness Initial Comments: 57 yo male presents with shortness of breath over the last hour. The patient has a history of COPD on home oxygen. No chest pain. He denies any significant changes in his recent health. No fevers. No sputum. No edema. No nausea, vomiting or diarrhea. He reports he had a chest XR earlier this week through his PCP. He was started on Levaquin at that time. He has a history of right sided pertial pneumonectomy in the past. The patient had a normal Lexiscan in April of 2016. MD Complaint: Shortness of breath -: Hour(s) Severity: Moderate Consistency: Constant Improves With: Nothing Worsens With: Exertion Known History Of: COPD Associated Symptoms: Denies other symptoms Treatments Prior to Arrival: Oxygen - Related Data Home Medications Medication Instructions Recorded Confirmed Last Taken Levofloxacin [Levaquin] 750 mg PO DAILY 09/25/17 09/25/17 09/25/17 Previous Rx's Medication Instructions Recorded Trazodone HCl 50 mg PO QHS #0 02/24/16 Budesonide [Pulmicort] 0.5 mg IH Q12H #60 nebu 12/12/16 Allergies Allergy/AdvReac Type Severity Reaction Status Date / Time No Known Drug Allergies Allergy Verified 09/25/17 16:01 Review of Systems Constitutional: Denies: Chills, Fever, Malaise, Weakness Eyes: Denies: Eye discharge, Photophobia, Vision change ENT: Denies: Congestion, Epistaxis, Throat pain Respiratory: Reports: Dyspnea, Wheezes. Denies: Cough, Stridor Cardiovascular: Denies: Chest pain, Palpitations, Syncope Endocrine: Denies: Fatigue, Polydipsia, Polyuria Gastrointestinal: Denies: Abdominal pain, Diarrhea, Nausea, Vomiting Genitourinary: Denies: Dysuria, Frequency Musculoskeletal: Denies: Arthralgia, Back pain, Myalgia, Neck pain Skin: Denies: Bruising, Change in color, Rash Neurological: Denies: Headache, Numbness, Weakness Psychiatric: Denies: Anxiety Hematological/Lymphatic: Denies: Blood Clots, Easy bleeding, Easy bruising, Swollen glands Past Medical History - SOCIAL HISTORY Smoking Status: Former smoker Drug Use: None - RESPIRATORY Hx Respiratory Disorders: Yes Hx COPD: Yes Hx Pneumonia: Yes Hx Sleep Apnea: Yes Hx of CPAP: (is getting soon) Comment:: Home O2 - CARDIOVASCULAR Hx Cardio Disorders: No Hx Irregular Heartbeat: (n/a) Comment:: Tolerance is fair as long as wearing O2 - NEURO Hx Neuro Disorders: No - GI Hx GI Disorders: Yes Hx Diverticulitis: Yes Hx Reflux: Yes Comment:: colon perforation (d/t OIC) with resection, +C-diff - Hx Genitourinary Disorders: No - ENDOCRINE Hx Endocrine Disorders: Yes Hx Diabetes: No Hx Thyroid Disease: Yes (hypo) - MUSCULOSKELETAL Hx Musculoskeletal Disorders: No - PSYCH Hx Psych Problems: Yes Hx Anxiety: Yes Hx Depression: Yes - HEMATOLOGY/ONCOLOGY Hx Hematology/Oncology Disorders: Yes Hx Cancer: Yes (throat, lung) Hx Chemotherapy: Yes Hx Radiation Therapy: Yes Hx Blood Transfusions: Yes Hx Blood Transfusion Reaction: No Family Medical History Hx Alcohol Use: Father, Brother/Sister Hx Cancer: Father, Mother, Brother/Sister Hx Depression: Mother Hx Diabetes: Father Hx Resp Disorders: Brother/Sister Physical Exam - General General Appearance: Alert, Oriented x3, Cooperative, No acute distress Limitations: No limitations - Head Head exam: Normal inspection - Eye Eye exam: Normal appearance. negative: Conjunctival injection - ENT ENT exam: Normal exam, Mucous membranes moist Ear exam: Normal external inspection Nasal Exam: Normal inspection Mouth exam: Normal external inspection - Neck Neck exam: Normal inspection, Full ROM. negative: Tenderness - Respiratory Respiratory exam: Accessory muscle use, Decreased breath sounds, Prolonged expiratory, Wheezes. negative: Normal lung sounds bilaterally, Respiratory distress, Rhonchi - Cardiovascular Cardiovascular Exam: Regular rate, Normal rhythm, Normal heart sounds - GI/Abdominal GI/Abdominal exam: Soft. negative: Tenderness - Rectal Rectal exam: Deferred - exam: Deferred - Extremities Extremities exam: Normal inspection, Full ROM, Normal capillary refill. negative: Pedal edema, Tenderness - Back Back exam: Reports: Normal inspection, Full ROM. Denies: Muscle spasm, Rash noted, Tenderness - Neurological Neurological exam: Alert, Normal gait, Oriented X3 - Psychiatric Psychiatric exam: Normal affect, Normal mood - Skin Skin exam: Dry, Intact, Normal color, Warm Course - Reevaluation(s) Reevaluation #1: The EMR was reviewed CXR from 09/22 demonstrated new right sided reticulonodular infiltrate may be atypical pneumonitits. 09/25/17 16:09 09/25/17 16:23 EKG NSR rate of 84, intervals normal, axis normal, ST normal. No changes from the prior. 09/25/17 16:34 No acute changes on the CBC 09/25/17 17:03 No acute changes on the CMP No acute changes on the Troponin 09/25/17 17:18 The chest XR demonstrates increased right sided infiltrate on the right from consistent with pneumonia 09/25/17 17:55 I CALVIN [facility] [place] for admission for pneumonia failed outpatient antibiotics. He will be placed on Cefipime and Cipro given his COPD with increased risk factors. Medical Decision Making - Lab Data Result diagrams: 09/25/17 16:10 09/25/17 16:10 Disposition Disposition: Admit Clinical Impression: COPD (chronic obstructive pulmonary disease) with emphysema Qualifiers: Emphysema type: unspecified Qualified Code(s): J43.9 - Emphysema, unspecified Pneumonia Qualifiers: Pneumonia type: due to unspecified organism Laterality: unspecified laterality Lung location: unspecified part of lung Qualified Code(s): J18.9 - Pneumonia, unspecified organism Decision to Admit: Admit from ER Decision to Admit Date: 09/25/17 Decision to Admit Time: 17:19 Condition: (1) Good Forms: Patient Portal Access Time of Disposition: 17:21 Quality - Quality Measures Quality Measures: N/A - Blood Pressure Screening Does Patient Have Any of the Following: No Blood Pressure Classification: Hypertensive Reading Systolic Measurement: 160 Diastolic Measurement: 93 Screening for High Blood Pressure: < Pre-Hypertensive BP, F/U Documented > [ [id number]] Pre-Hypertensive Follow-up Interventions: Referral to alternative/primary care provider.
[2017-09-25 16:22] LABS: BASO % 0.4 % (0-6); EOS % 2.8 % (0-6); GRAN % 67.9 % (47-80); HEMATOCRIT 37.1 % (42.0-52.0); HEMOGLOBIN 11.8 gm/dl (14.0-18.0); LYMPH % 17.9 % (16-45); MEAN CELL VOLUME 87.7 fl (81-97); MEAN CORPUSCULAR HEMOGLOBIN 27.8 pg (27-33); MEAN CORPUSCULAR HGB CONC 31.8 g/dl (32-36); MEAN PLATELET VOLUME 9.6 fl (7.4-10.4); PLATELET COUNT 456 K/uL (130-400); RED BLOOD COUNT 4.23 M/uL (4.40-5.70); RED CELL DISTRIBUTION WIDTH 14.9 % (11.5-14.5)
[2017-09-25 16:35] LABS: BLOOD UREA NITROGEN 11 mg/dL (6-20); CREATININE 0.6 mg/dL (0.7-1.2); EST GLOMERULAR FILTRATION RATE > 60 mL/min; TOTAL PROTEIN 7.6 g/dL (6.6-8.7)
[2017-09-25 16:37] LABS: GLUCOSE,RANDOM 112 mg/dL (74-109)
[2017-09-25 16:40] LABS: ALB/GLOB RATIO 1.1 (1.1-1.8); ALBUMIN 3.9 g/dL (4.0-5.0); ALKALINE PHOSPHATASE 85 U/L (40-129); ALT/SGPT 24 U/L (<41); AST/SGOT 21 U/L (10.0-50.0)
[2017-09-25] MEDS ORDERED: ALBUTEROL SULFATE (0.083%) 2.5 MG/3 ML NEB INH PRN (19:27)
[2017-09-25] MEDS ORDERED: ACETAMINOPHEN 500 MG TABLET PO PRN (19:27)
[2017-09-25] MEDS: CIPROFLOXACIN LACTATE/D5W 400 MG/200 ML BAG IVPB SCH (20:06)
[2017-09-25] MEDS: IPRATROPIUM/ALBUTEROL (0.5MG/3MG) NEB INH SCH ×2 (20:08→21:43)
[2017-09-25] MEDS: BUDESONIDE 0.5 MG/2 ML INH SCH (20:08)
[2017-09-25] MEDS ORDERED: DULOXETINE HCL 30 MG CAPSULE.DR PO SCH (22:00)
[2017-09-25] MEDS: TRAZODONE 50 MG TABLET PO SCH (22:01)
[2017-09-25] MEDS: CEFEPIME HCL 2 GM in 0.9 % SODIUM CHLORIDE 100ML 100 ML IVPB SCH (22:06)
[2017-09-26] MEDS: IPRATROPIUM/ALBUTEROL (0.5MG/3MG) NEB INH SCH ×5 (05:56→21:33)
--- NOTE | 2017-09-26 07:22 | RADIOLOGY REPORT ---
EXAM: CHEST, TWO VIEWS HISTORY: DIFFICULTY IN BREATHING TODAY, HISTORY OF RIGHT LOWER LOBE SURGERY. TECHNIQUE: PA and lateral views of the chest were obtained. Comparison: Two view chest 09/22/17. FINDINGS: Persistent volume loss on the right. Persistent reticulonodular infiltrate on the right with slight increase in the right base. The lungs again appear overall hyperinflated suggesting underlying COPD and findings likely represent some superimposed pneumonitis in the right base. Deformity of the posterior aspect of the right fifth rib as before may be related to prior thoracotomy. Blunting of both costophrenic angles may be a combination of pleural fluid on the right and some chronic blunting related to the hyperinflation. Torsion of the aorta. IMPRESSION: 1. SOME MILD PROGRESSION IN INFILTRATE IN THE RIGHT BASE COMPARED WITH . FINDINGS PROBABLY REPRESENT PNEUMONITIS SUPERIMPOSED ON COPD. FOLLOW-UP FILMS SUGGESTED. 2. THERE MAY BE AN ASSOCIATED SMALL RIGHT PLEURAL EFFUSION WELL. JOB NUMBER: [id number] MTDD
[2017-09-26] MEDS: CIPROFLOXACIN LACTATE/D5W 400 MG/200 ML BAG IVPB SCH (08:03)
[2017-09-26] MEDS: CEFEPIME HCL 2 GM in 0.9 % SODIUM CHLORIDE 100ML 100 ML IVPB SCH (09:56)
[2017-09-26] MEDS: METHYLPREDNISOLONE PF 125MG/VIAL IVP SCH (09:57)
[2017-09-26] MEDS: FERROUS SULFATE 325 MG TAB PO SCH (09:58)
[2017-09-26] MEDS: BUPROPION HCL 150 MG TAB.SR.12H PO SCH (09:58)
[2017-09-26] MEDS: ENOXAPARIN 40 MG/0.4 ML SYR SC SCH (09:58)
[2017-09-26] MEDS: LEVOTHYROXINE SODIUM 75 MCG TABLET PO SCH (10:00)
[2017-09-26] MEDS ORDERED: LEVOTHYROXINE SODIUM 75 MCG TABLET PO SCH (10:00)
[2017-09-26] MEDS: PANTOPRAZOLE SODIUM 40 MG TABLET PO SCH (10:05)
[2017-09-26] MEDS: BUDESONIDE 0.5 MG/2 ML INH SCH ×2 (10:12→21:33)
[2017-09-26] MEDS: ANORO (UMECLIDINIUM & VILANTEROL) 62.5MCG/25MCG INH IH SCH (10:13)
--- NOTE | 2017-09-26 11:06 | History & Physical ---
History of Present Illness - Date of Service Date of Service for History & Physical: 09/26/17 - History of Present Illness Admitting Diagnosis: Pneumonia, COPD exacerbation. History of Present Illness: Mamadou is a 57 year-old who came to the ED on 09/25/17 because he was experiencing severe shortness of breath lasting 1 hour at home. He had been taking levaquin 750mg daily for 5 days for pneumonia diagnosis made by his PCP. Other history includes COPD with home O2, emphysema, ex-smoker, GERD, diverticulitis with perforation resulting in bowel resection, c diff, hypothyroidism, lung and throat cancer, and right partial lobectomy. He was admitted for pneumonia management, failed outpatient antibiotics. He denied chest pain, fever, productive cough, edema, nausea, vomiting, diarrhea, and recent illness. His vital signs in the ED were: BP 160/93, HR 94 , RR 20 and labored, 96% on 2L O2, and 98F. His EKG showed NSR with no changes. He has a chest x-ray that was compared to a chest x-ray from 09/22/17 and showed a mild progression of infiltrate in right base of lung. His laboratory findings were unremarkable, CBC with differential and CMP, troponin with no changes. 09/26/17- Mamadou states that his breathing has greatly improved today, he denies cough. His vital signs this morning were BP 121/71, HR 81, T 98.6F, and 94% on 2L O2. pcp: Lisbeth Keg Filler: (pt. is unsure of name) Travel Screening - Travel/Exposure Within Last 30 Days Have you traveled within the last 30 days?: No - Travel/Exposure Within Last Year Have you traveled outside the [place] in the last year?: No - Additonal Travel Details Have you been exposed to anyone with a communicable illness?: No Review of Systems Constitutional: Denies: Chills, Fever, Malaise, Weakness Eyes: Denies: Eye discharge, Photophobia, Vision change ENT: Denies: Congestion, Epistaxis, Throat pain Respiratory: Reports: Dyspnea, Wheezes. Denies: Cough, Stridor Cardiovascular: Denies: Chest pain, Palpitations, Syncope Endocrine: Denies: Fatigue, Polydipsia, Polyuria Gastrointestinal: Denies: Abdominal pain, Diarrhea, Nausea, Vomiting Genitourinary: Denies: Dysuria, Frequency Musculoskeletal: Denies: Arthralgia, Back pain, Myalgia, Neck pain Skin: Denies: Bruising, Change in color, Rash Neurological: Denies: Headache, Numbness, Weakness Psychiatric: Denies: Anxiety Hematological/Lymphatic: Denies: Blood Clots, Easy bleeding, Easy bruising, Swollen glands Past Medical History - SOCIAL HISTORY Smoking Status: Former smoker Alcohol Use: None Alcohol Use Comment: Sober for 4 years Drug Use: None - RESPIRATORY Hx Respiratory Disorders: Yes Hx COPD: Yes Hx Pneumonia: Yes Hx Sleep Apnea: Yes Hx of CPAP: (is getting soon) Comment:: Home O2 - CARDIOVASCULAR Hx Cardio Disorders: No Hx Irregular Heartbeat: (n/a) Comment:: Tolerance is fair as long as wearing O2 - NEURO Hx Neuro Disorders: No Hx Seizures: No - GI Hx GI Disorders: Yes Hx Diverticulitis: Yes Hx Reflux: Yes Comment:: colon perforation (d/t OIC) with resection, +C-diff - Hx Genitourinary Disorders: No - ENDOCRINE Hx Endocrine Disorders: Yes Hx Diabetes: No Hx Thyroid Disease: Yes (hypo) - MUSCULOSKELETAL Hx Musculoskeletal Disorders: No - PSYCH Hx Psych Problems: Yes Hx Anxiety: Yes Hx Depression: Yes - HEMATOLOGY/ONCOLOGY Hx Hematology/Oncology Disorders: Yes Hx Cancer: Yes (throat, lung) Hx Chemotherapy: Yes Hx Radiation Therapy: Yes Hx Blood Transfusions: Yes Hx Blood Transfusion Reaction: No Family Medical History Any Significant Family History?: Yes Hx Alcohol Use: Father, Brother/Sister Hx Cancer: Father, Mother, Brother/Sister Hx Depression: Mother Hx Diabetes: Father Hx Resp Disorders: Brother/Sister H&P Meds/Allergies - Allergies Allergies: Allergies Allergy/AdvReac Type Severity Reaction Status Date / Time No Known Drug Allergies Allergy Verified 09/25/17 16:01 - Home Medications Home Medications Medication Instructions Recorded Confirmed Last Taken Levofloxacin [Levaquin] 750 mg PO DAILY 09/25/17 09/25/17 09/25/17 Bupropion HCl [Wellbutrin Xl] 300 mg PO DAILY 09/26/17 09/26/17 Unknown Pantoprazole Sodium [Protonix] 20 mg PO DAILYAC 09/26/17 09/26/17 Unknown Previous Rx's Medication Instructions Recorded Trazodone HCl 50 mg PO QHS #0 02/24/16 Budesonide [Pulmicort] 0.5 mg IH Q12H #60 nebu 12/12/16 - Active Medications Active Medications: Current Medications Acetaminophen (Tylenol 500mg Tab) 1,000 mg PO Q6H PRN PRN Reason: PAIN/TEMP Albuterol Sulfate () 2.5 mg INH RESP.Q2H PRN PRN Reason: DIFFICULTY IN BREATHING Albuterol/Ipratropium (Duoneb) 3 ml INH RESP.Q4H.[facility] Last Admin: 09/26/17 10:12 Dose: 3 ml Budesonide (Pulmicort) 0.5 mg INH Q12H COUNTS INCLUDE 234 BEDS AT THE [facility] Last Admin: 09/26/17 10:12 Dose: 0.5 mg Bupropion HCl (Wellbutrin Sr) 300 mg PO DAILY COUNTS INCLUDE 234 BEDS AT THE [facility] Last Admin: 09/26/17 09:58 Dose: 300 mg Enoxaparin Sodium (Lovenox) 40 mg SC DAILY COUNTS INCLUDE 234 BEDS AT THE [facility] Last Admin: 09/26/17 09:58 Dose: 40 mg Ferrous Sulfate (Iron) 325 mg PO DAILY COUNTS INCLUDE 234 BEDS AT THE [facility] Last Admin: 09/26/17 09:58 Dose: 325 mg CEFEPIME HCL 2 gm/ Sodium (Chloride) 50 mls @ 100 mls/hr IVPB Q12HR COUNTS INCLUDE 234 BEDS AT THE [facility] Levothyroxine Sodium (Synthroid) 75 mcg PO DAILYTHY COUNTS INCLUDE 234 BEDS AT THE [facility] Last Admin: 09/26/17 10:00 Dose: 75 mcg Methylprednisolone Sodium Succinate (Solu-Medrol) 60 mg IVP DAILY COUNTS INCLUDE 234 BEDS AT THE [facility] Last Admin: 09/26/17 09:57 Dose: 60 mg Pantoprazole Sodium (Protonix) 40 mg PO DAILYAC COUNTS INCLUDE 234 BEDS AT THE [facility] Last Admin: 09/26/17 10:05 Dose: 40 mg Trazodone HCl (Desyrel) 50 mg PO QHS COUNTS INCLUDE 234 BEDS AT THE [facility] Last Admin: 09/25/17 22:01 Dose: 50 mg Physical Exam - Vital Signs Vital Signs: Vital Signs - Last 24 Hrs Temp Pulse Pulse Resp BP Pulse Ox 09/26/17 10:15 89 16 09/26/17 10:00 89 18 95 09/26/17 09:09 98.6 F 71 18 121/71 94 L 09/26/17 08:28 20 09/26/17 05:56 81 16 100 09/26/17 04:00 98.6 F 89 20 128/71 97 09/25/17 21:00 76 16 09/25/17 20:10 95 H 16 100 11/19/17 19:00 98.4 F 76 20 154/84 94 L - General General Appearance: Alert, Oriented x3, Cooperative, No acute distress Limitations: No limitations - Head Head exam: Normal inspection - Eye Eye exam: Normal appearance. negative: Conjunctival injection - ENT ENT exam: Normal exam, Mucous membranes moist Ear exam: Normal external inspection Nasal Exam: Normal inspection Mouth exam: Normal external inspection - Neck Neck exam: Normal inspection, Full ROM. negative: Tenderness - Respiratory Respiratory exam: Decreased breath sounds, Prolonged expiratory, Rales, Other ( on 2L O2 nasal cannula). negative: Normal lung sounds bilaterally, Respiratory distress, Rhonchi - Cardiovascular Cardiovascular Exam: Regular rate, Normal rhythm, Normal heart sounds - GI/Abdominal GI/Abdominal exam: Soft. negative: Tenderness - Rectal Rectal exam: Deferred - exam: Deferred - Extremities Extremities exam: Normal inspection, Full ROM, Normal capillary refill. negative: Pedal edema, Tenderness - Back Back exam: Reports: Normal inspection, Full ROM. Denies: Muscle spasm, Rash noted, Tenderness - Neurological Neurological exam: Alert, Normal gait, Oriented X3 - Psychiatric Psychiatric exam: Normal affect, Normal mood - Skin Skin exam: Dry, Intact, Normal color, Warm Results - Labs Result Diagrams: 09/25/17 16:10 09/25/17 16:10 Labs Last 24 Hours: Laboratory Results - last 24 hr 09/26/17 06:15 Troponin T < 0.010 VTE H&P Assessment - Risk for VTE Risk for VTE: Yes Risk Level: Moderate Risk Assessment Date: 09/26/17 Risk Assessment Time: 14:13 VTE Orders Placed or Will Be Placed: Yes Plan - Inpatient Certification Inpatient Certification: Admit to inpatient care: Based on my medical assessment, after consideration of patient's risk factors (age, co-morbidities and patient presenting symptoms and acuity), I expect that this patient will remain in the hospital greater than or equal to two midnights and that the services needed warrant inpatient care because: Patient Risk Factors: [age, COPD, on home oxygen, diagnosis of failed outpatient pneumonia treatment, history of lung and throat cancer] Estimated length of stay: [48-72 hours] The patient may reasonably be expected to be discharged or transferred to a hospital within 96 hours after admission to [facility]. Services needed: [IV antibiotics, respiratory therapy] Post hospital care (if known): [] I certify that my determination is in accordance with my understanding of Medicare requirements for reasonable and necessary inpatient services. 09/26/17 14:08 - Detailed Diagnosis and Plan (1) Pneumonia Current Visit: Yes Status: Acute Qualifiers: Pneumonia type: due to unspecified organism Laterality: unspecified laterality Lung location: unspecified part of lung Qualified Code(s): J18.9 - Pneumonia, unspecified organism Base Code: J18.9 - PNEUMONIA, UNSPECIFIED ORGANISM Comment: 09/26/17- Chest x -ray in ED showed right lung infiltrate. Pt. was on Levaquin 750mg for 5 days prior to admission for pneumonia diagnosis by his PCP. Pt. has improved clinically, remains afebrile, denies cough. Treating with cefepime 2g IV twice daily. Will repeat labs tomorrow. Continue to monitor. Will recommend follow up with PCP to ensure continued improvement. (2) COPD (chronic obstructive pulmonary disease) Current Visit: No Status: Acute Qualifiers: COPD type: emphysema Base Code: J44.9 - CHRONIC OBSTRUCTIVE PULMONARY DISEASE, UNSPECIFIED Comment : 09/26/17- On 2L O2 continuous at baseline, currently on 2L and doing well. Recieved 125mg IV solumedrol in ED. Continue solumedrol 60mg daily, duonebs q4 hours, continue cefepime, continue pulmicort 0.5mg twice daily. (3) Venous thromboembolism (VTE) prophylaxis provided within 24 hours of arrival Current Visit: Yes Status: Acute Base Code: [id number] - Comment: 09/26/17- pt. is moderate risk, will treat with lovenox 40mg sc daily. (4) Full code status Current Visit: Yes Status: Acute Base Code: Z78.9 - OTHER SPECIFIED HEALTH STATUS Comment: Pt. is full code
[2017-09-26] MEDS: CEFEPIME HCL 2 GM in 0.9% SODIUM CHLORIDE 50ML 50 ML IVPB SCH (22:12)
[2017-09-26] MEDS: TRAZODONE 50 MG TABLET PO SCH (22:48)
[2017-09-27] MEDS: IPRATROPIUM/ALBUTEROL (0.5MG/3MG) NEB INH SCH ×2 (05:42→10:42)
[2017-09-27] MEDS: LEVOTHYROXINE SODIUM 75 MCG TABLET PO SCH (06:19)
[2017-09-27] MEDS: PANTOPRAZOLE SODIUM 40 MG TABLET PO SCH (06:19)
[2017-09-27 06:28] LABS: HEMATOCRIT 32.2 % (42.0-52.0); HEMOGLOBIN 10.1 gm/dl (14.0-18.0); MEAN CORPUSCULAR HGB CONC 31.4 g/dl (32-36); MEAN PLATELET VOLUME 9.3 fl (7.4-10.4); PLATELET COUNT 519 K/uL (130-400); RED CELL DISTRIBUTION WIDTH 14.9 % (11.5-14.5); WHITE BLOOD COUNT W/O DIFF 11.8 K/uL (4.2-12.2)
[2017-09-27 06:39] LABS: ALB/GLOB RATIO 1.1 (1.1-1.8); ALBUMIN 3.2 g/dL (4.0-5.0); ALKALINE PHOSPHATASE 67 U/L (40-129); ALT/SGPT 18 U/L (<41); AST/SGOT 12 U/L (10.0-50.0); BILIRUBIN,TOTAL < 0.20 mg/dL (0.2-1.0); BLOOD UREA NITROGEN 12 mg/dL (6-20); CREATININE 0.6 mg/dL (0.7-1.2); EST GLOMERULAR FILTRATION RATE > 60 mL/min; GLUCOSE,RANDOM 95 mg/dL (74-109); TOTAL PROTEIN 6.2 g/dL (6.6-8.7)
[2017-09-27 06:41] LABS: MEAN CORPUSCULAR HEMOGLOBIN 27.2 pg (27-33)
[2017-09-27] MEDS: BUPROPION HCL 150 MG TAB.SR.12H PO SCH (09:17)
[2017-09-27] MEDS: FERROUS SULFATE 325 MG TAB PO SCH (09:17)
[2017-09-27] MEDS: ENOXAPARIN 40 MG/0.4 ML SYR SC SCH (09:17)
[2017-09-27] MEDS: METHYLPREDNISOLONE PF 125MG/VIAL IVP SCH (09:18)
[2017-09-27] MEDS: CEFEPIME HCL 2 GM in 0.9% SODIUM CHLORIDE 50ML 50 ML IVPB SCH (09:18)
--- NOTE | 2017-09-27 10:17 | Discharge Summary ---
Providers Discharge Summary Date: 09/27/17 Date of admission: 09/25/17 18:51 Attending physician: Jim Bob Primary care physician: Jim Bob Physical Exam - Vital Signs Vital Signs: Vital Signs - Last 24 Hrs Temp Pulse Pulse Pulse Resp BP Pulse Ox 09/27/17 08:51 97.7 F 74 18 95/62 98 09/27/17 05:42 61 16 100 09/27/17 01:00 97.7 F 91 H 20 119/72 95 09/26/17 21:33 90 18 100 09/26/17 21:00 72 18 09/26/17 18:15 75 16 09/26/17 17:00 99.2 F 87 18 130/73 94 L 09/26/17 14:04 86 16 96 09/26/17 10:15 89 16 - General General Appearance: Alert, Oriented x3, Cooperative, No acute distress Limitations: No limitations - Head Head exam: Normal inspection - Eye Eye exam: Normal appearance. negative: Conjunctival injection - ENT ENT exam: Normal exam, Mucous membranes moist Ear exam: Normal external inspection Nasal Exam: Normal inspection Mouth exam: Normal external inspection - Neck Neck exam: Normal inspection, Full ROM. negative: Tenderness - Respiratory Respiratory exam: Rales, Other (on 2L O2 nasal cannula). negative: Normal lung sounds bilaterally, Respiratory distress, Rhonchi - Cardiovascular Cardiovascular Exam: Regular rate, Normal rhythm, Normal heart sounds - GI/Abdominal GI/Abdominal exam: Soft. negative: Tenderness - Rectal Rectal exam: Deferred - exam: Deferred - Extremities Extremities exam: Normal inspection, Full ROM, Normal capillary refill. negative: Pedal edema, Tenderness - Back Back exam: Reports: Normal inspection, Full ROM. Denies: Muscle spasm, Rash noted, Tenderness - Neurological Neurological exam: Alert, Normal gait, Oriented X3 - Psychiatric Psychiatric exam: Normal affect, Normal mood - Skin Skin exam: Dry, Intact, Normal color, Warm Hospitalization - Hospitalization Admission Diagnosis: Pneumonia, COPD exacerbation. - Problem List/Discharge Diagnosis (1) Pneumonia Current Visit: Yes Status: Acute Discharge Diagnosis: Pneumonia type: due to unspecified organism Laterality: right Lung location: unspecified part of lung Qualified Code(s): J18.9 - Pneumonia, unspecified organism Base Code: J18.9 - PNEUMONIA, UNSPECIFIED ORGANISM Comment: 09/27/17- Pt. have been treated with with cefepime 2g IV twice daily for a total of 4 doses. CBC with diff and CMP were unremarkable this morning. Planning to discharge this afternoon and switch to PO cefdinir and prednisone. Recommend follow up with PCP to ensure continued improvement. (2) COPD (chronic obstructive pulmonary disease) Current Visit: No Status: Acute Discharge Diagnosis: COPD type: emphysema Base Code: J44.9 - CHRONIC OBSTRUCTIVE PULMONARY DISEASE, UNSPECIFIED Comment : 09/27/17- On 2L O2 NC continuous at baseline, currently on 2L and sat is 98% . Had been receiving 60mg IV solumedrol daily for 2 days, switching to prednisone 40mg PO daily for discharge. Continue pulmicort 0.5mg twice daily. (3) Venous thromboembolism (VTE) prophylaxis provided within 24 hours of arrival Current Visit: Yes Status: Acute Base Code: [id number] - Comment: 09/27/17- Pt. has been treated with 2 doses of lovenox 40mg sc during hospitalization. Planning to dc for discharge. (4) Full code status Current Visit: Yes Status: Acute Base Code: Z78.9 - OTHER SPECIFIED HEALTH STATUS Comment: Pt. is full code - Hospitalization Course Hospital Course: Mamadou is a 57 year-old who came to the ED on 09/25/17 because he was experiencing severe shortness of breath lasting 1 hour at home. He had been taking levaquin 750mg daily for 5 days for pneumonia diagnosis made by his PCP. Other history includes COPD with home O2, emphysema, ex-smoker, GERD, diverticulitis with perforation resulting in bowel resection, c diff, hypothyroidism, lung and throat cancer, and right partial lobectomy. In the ED, his EKG showed NSR with no changes and his chest x-ray was compared to a chest x-ray from 09/22/17 and showed a mild progression of infiltrate in right base of lung. His laboratory findings were unremarkable, CBC with differential and CMP, troponin with no changes. He was admitted for pneumonia management, failed outpatient antibiotics. He was started on cefipime 2g twice daily, solumedrol 60mg IV daily, and duonebs 3ml 4 times daily. 09/26/17- Mamadou states that his breathing has greatly improved, he denies cough. His vital signs this morning were BP 121/71, HR 81, T 98.6F, and 94% on 2L O2. Continued cefipime, solumedrol, and duonebs. 09/27/17- Mamadou continues to improve clinically. He denies shortness of breath today and productive cough. He remains afebrile, WBC 11.8 this morning, and his oxygen saturation is 98% on 2L O2 nasal cannula. No knew concerns today. PCP: Dr. Bob Abnormal Labs: Abnormal Lab Results 09/27/17 09/27/17 Range/Units 06:09 06:09 RBC 3.70 L (4.40-5.70) M/uL Hgb 10.1 L (14.0-18.0) gm/dl Hct 32.2 L (42.0-52.0) % MCHC 31.4 L (32-36) g/dl RDW 14.9 H (11.5-14.5) % Plt Count 519 H (130-400) K/uL Lymphocytes 14.0 L (16-45) % Creatinine 0.6 L (0.7-1.2) mg/dL Total Bilirubin < 0.20 L (0.2-1.0) mg/dL Total Protein 6.2 L (6.6-8.7) g/dL Albumin 3.2 L (4.0-5.0) g/dL Condition at Discharge: (1) Good Discharge Medications - Discharge Medications Prescriptions: Cefdinir [Omnicef] 300 mg PO BID 5 Days #10 cap Prednisone [Prednisone 20Mg] 40 mg PO DAILY 2 Days #4 tab Home Medications: Ambulatory Orders Albuterol Sulfate [Proair Hfa] 1 puff INH Q6H PRN 04/05/15 [Last Taken 09/25/17] Levothyroxine Sodium 75 mcg PO DAILYTHY 04/05/15 [Last Taken 07/05/17] Umeclidinium Brm/Vilanterol Tr [Anoro Ellipta 62.5-25 Mcg INH] 1 each IH DAILY 02/01/16 [Last Taken 09/25/17] Trazodone HCl 50 mg PO QHS #0 02/24/16 [Last Taken 07/04/17] Budesonide [Pulmicort] 0.5 mg IH Q12H #60 nebu 12/12/16 [Last Taken 09/25/17] Ferrous Sulfate [Iron] 325 mg PO DAILY 07/05/17 [Last Taken 07/05/17] Bupropion HCl [Wellbutrin Xl] 300 mg PO DAILY 09/26/17 [Last Taken Unknown] Pantoprazole Sodium [Protonix] 20 mg PO DAILYAC 09/26/17 [Last Taken Unknown] Albuterol Sulfate 0.083% [Neb] 2.5 mg INH RESP.Q2H PRN nebulization solution [Last Taken Unknown] Bupropion HCl [Wellbutrin Sr] 300 mg PO DAILY tab.sr.12h 09/27/17 [Last Taken Unknown] Cefdinir [Omnicef] 300 mg PO BID 5 Days #10 cap 09/27/17 [Last Taken Unknown] Levothyroxine Sodium [Synthroid] 75 mcg PO DAILYTHY tablet 09/27/17 [Last Taken Unknown] Pantoprazole Sodium [Protonix] 40 mg PO DAILYAC #0 tablet.dr 09/27/17 [Last Taken Unknown] Prednisone [Prednisone 20Mg] 40 mg PO DAILY 2 Days #4 tab 09/27/17 [Last Taken Unknown] Discharge Plan - Discharge Instructions Instructions: COPD (Chronic Obstructive Pulmonary Disease) (DC), Community Acquired Pneumonia (DC) Additional Instructions: Recommend high calorie and protein foods, small frequent meals. 2 Activity: Activity as tolerated 2 Diet: Regular diet 2 Follow Up: With Dr Bob on October 04 at 9:30 am. 2 Additional: Return to the closest emergency department with any new or worsening symptoms. Take your antibiotic cefdinir until gone even if you are feeling better. Take the prednisone (steroid) as directed until gone. Quality Measures - Quality Measures Quality Measures: Documentation of Current Medications in Medical Record, Screening for High Blood Pressure and F/U Documented - Current Medications Quality Measure: Measure #130: Documentation of Current Medications Documentation of Current Medications: <Current Medications Documented/Reviewed> [A7052] - Blood Pressure Screening Quality Measure: Screening for High Blood Pressure and Follow-Up Documented Does Patient Have Any of the Following: No Blood Pressure Classification: Hypertensive Reading Systolic Measurement: 160 Diastolic Measurement: 93 Screening for High Blood Pressure: < Normal BP, F/U Not Required > [T0353] - Elder Abuse Suspicion Index EASI Reference Information: Petra ANAND, Shelly C, Greg D, Luiz Peralta.Development and validation of a tool to assist physicians identification of elder abuse: The Elder Abuse Suspicion Index (EASI ). Journal of Elder Abuse and Neglect, 2008; 20 (3): 276-300.
[2017-09-27] MEDS: ANORO (UMECLIDINIUM & VILANTEROL) 62.5MCG/25MCG INH IH SCH (10:42)
[2017-09-27] MEDS: BUDESONIDE 0.5 MG/2 ML INH SCH (10:43)
== END 2017-09-27 11:40 | disposition home or self-care (01) ==
LOC: ER 15:57 → INTOOBSV 18:51 → MEDSURG 18:51
PROVIDERS: ADMIT Internal Medicine; ATTEND Internal Medicine
DX: J18.9 Pneumonia, unspecified organism (principal); Z85.118 Personal history of other malignant neoplasm of bronchus and lung; Z85.818 Personal history of malignant neoplasm of other sites of lip, oral cavity, and pharynx; E03.9 Hypothyroidism, unspecified; J44.1 Chronic obstructive pulmonary disease with (acute) exacerbation; Z87.891 Personal history of nicotine dependence
CPT/HCPCS: 99285 ×2; 96374; 85025; 80053 ×2; 84484 ×2; 85027; 71020; 94640 ×5; 94761; 94760 ×2; 93005; 93010; G0378 ×3; J0744 ×2; J3490 ×2; 99217; 99220; J1650; J2930

== ENCOUNTER 2017-11-09 16:25 | Emergency (ER) | payer BC, MEDICAID ==
--- NOTE | 2017-11-09 17:22 | Emergency Department Record ---
History of Present Illness - General Chief Complaint: Difficulty Breathing Stated Complaint: SUSANA Time Seen by Provider: 11/09/17 17:20 Source: Patient, RN notes reviewed Mode of Arrival: Ambulatory - History of Present Illness Initial Comments: cough and sob for 24 hours and he stopped cigs 4 months ago. known copd Onset/Timin -: Days(s) Improves With: Bronchodilators Worsens With: Exertion Known History Of: COPD Associated Symptoms: Cough Treatments Prior to Arrival: Bronchodilator - Related Data Home Oxygen Therapy: Yes Home Oxygen Amount: 2 Liters Previous Rx's Medication Instructions Recorded Trazodone HCl 50 mg PO QHS #0 02/24/16 Budesonide [Pulmicort] 0.5 mg IH Q12H #60 nebu 12/12/16 Levothyroxine Sodium [Synthroid] 75 mcg PO DAILYTHY tablet 09/27/17 Pantoprazole Sodium [Protonix] 40 mg PO DAILYAC #0 tablet. 09/27/17 Prednisone [Prednisone 20Mg] 40 mg PO DAILY 2 Days #4 tab 09/27/17 Azithromycin 250 mg PO DAILY #6 tablet 11/09/17 Prednisone [Prednisone 10Mg] 10 mg PO ASDIR #30 tab 11/09/17 Allergies Allergy/AdvReac Type Severity Reaction Status Date / Time No Known Drug Allergies Allergy Verified 11/09/17 16:48 Travel Screening - Travel/Exposure Within Last 30 Days Have you traveled within the last 30 days?: No - Travel/Exposure Within Last Year Have you traveled outside the [place] in the last year?: No - Additonal Travel Details Have you been exposed to anyone with a communicable illness?: No - Travel Symptoms Symptom Screening: None Review of Systems Reviewed: No additional complaints except as noted below Constitutional: Reports: As per HPI. Denies: Chills, Fever, Malaise, Night sweats, Weakness, Weight change Eyes: Reports: As per HPI. Denies: Eye discharge, Eye pain, Photophobia, Vision change ENT: Reports: As per HPI, Congestion. Denies: Dental pain, Ear pain, Epistaxis , Hearing loss, Throat pain Respiratory: Reports: As per HPI, Cough. Denies: Dyspnea, Hemoptysis, Stridor, Wheezes Cardiovascular: Reports: As per HPI. Denies: Arrhythmia, Chest pain, Dyspnea on exertion, Edema, Murmurs, Orthopnea, Palpitations, Paroxysmal nocturnal dyspnea, Rheumatic Fever, Syncope Endocrine: Reports: As per HPI. Denies: Fatigue, Heat or cold intolerance, Polydipsia, Polyuria Gastrointestinal: Reports: As per HPI. Denies: Abdominal pain, Constipation, Diarrhea, Hematemesis, Hematochezia, Melena, Nausea, Vomiting Genitourinary: Reports: As per HPI. Denies: Dysuria, Frequency, Hematuria, Incontinence, Retention, Testicular pain, Testicular mass, Urgency Musculoskeletal: Reports: As per HPI. Denies: Arthralgia, Back pain, Gout, Joint swelling, Myalgia, Neck pain Skin: Reports: As per HPI. Denies: Bruising, Change in color, Change in hair/ nails, Lesions, Pruritus, Rash Neurological: Reports: As per HPI. Denies: Abnormal gait, Confusion, Headache, Numbness, Paresthesias, Seizure, Tingling, Tremors, Vertigo, Weakness Psychiatric: Reports: As per HPI. Denies: Anxiety, Auditory hallucinations, Depression, Homicidal thoughts, Suicidal thoughts, Visual hallucinations Hematological/Lymphatic: Reports: As per HPI. Denies: Anemia, Blood Clots, Easy bleeding, Easy bruising, Swollen glands Past Medical History - SOCIAL HISTORY Smoking Status: Former smoker Alcohol Use: None Drug Use Detail:: Marijuana - RESPIRATORY Hx Respiratory Disorders: Yes Hx COPD: Yes Hx Pneumonia: Yes Hx Sleep Apnea: Yes Hx of CPAP: (is getting soon) Comment:: Home O2 - CARDIOVASCULAR Hx Cardio Disorders: No Hx Irregular Heartbeat: (n/a) Comment:: Tolerance is fair as long as wearing O2 - NEURO Hx Neuro Disorders: No Hx Seizures: No - GI Hx GI Disorders: Yes Hx Diverticulitis: Yes Hx Reflux: Yes Comment:: colon perforation (d/t OIC) with resection, +C-diff - Hx Genitourinary Disorders: No - ENDOCRINE Hx Endocrine Disorders: Yes Hx Diabetes: No Hx Thyroid Disease: Yes (hypo) - MUSCULOSKELETAL Hx Musculoskeletal Disorders: No - PSYCH Hx Psych Problems: Yes Hx Anxiety: Yes Hx Depression: Yes - HEMATOLOGY/ONCOLOGY Hx Hematology/Oncology Disorders: Yes Hx Cancer: Yes (throat, lung) Hx Chemotherapy: Yes Hx Radiation Therapy: Yes Hx Blood Transfusions: Yes Hx Blood Transfusion Reaction: No Family Medical History Any Significant Family History?: Yes Hx Alcohol Use: Father, Brother/Sister Hx Cancer: Father, Mother, Brother/Sister Hx Depression: Mother Hx Diabetes: Father Hx Resp Disorders: Brother/Sister Physical Exam - General General Appearance: Alert, Oriented x3, Cooperative, No acute distress - Head Head exam: Normal inspection - Eye Eye exam: Normal appearance, PERRL Pupils: Normal accommodation - ENT ENT exam: Normal exam, Mucous membranes moist, Normal external ear exam, Normal orophraynx, TM's normal bilaterally Ear exam: Normal external inspection. negative: External canal tenderness Nasal Exam: Normal inspection. negative: Discharge, Sinus tenderness Mouth exam: Normal external inspection, Tongue normal Teeth exam: Normal inspection. negative: Dental caries Throat exam: Normal inspection. negative: Tonsillar erythema, Tonsillar exudate - Neck Neck exam: Normal inspection, Full ROM. negative: Tenderness - Respiratory Respiratory exam: Decreased breath sounds. negative: Respiratory distress - Cardiovascular Cardiovascular Exam: Regular rate, Normal rhythm, Normal heart sounds - GI/Abdominal GI/Abdominal exam: Soft, Normal bowel sounds. negative: Tenderness - Rectal Rectal exam: Deferred - exam: Deferred - Extremities Extremities exam: Normal inspection, Full ROM, Normal capillary refill. negative: Tenderness - Back Back exam: Reports: Normal inspection, Full ROM. Denies: Muscle spasm, Rash noted, Tenderness - Neurological Neurological exam: Alert, Normal gait, Oriented X3, Reflexes normal - Psychiatric Psychiatric exam: Normal affect, Normal mood - Skin Skin exam: Dry, Intact, Normal color, Warm Course Vital Signs 11/09/17 17:05 Temperature 98.4 F Pulse Rate 89 Respiratory 15 Rate Blood Pressure 138/87 Pulse Ox 98 - Reevaluation(s) Reevaluation #1: patient is feeling better 11/09/17 18:35 Medical Decision Making - Data Complexity MDM Data: Labs Ordered and/or Reviewed, X-Ray Ordered and/or Reviewed (No acute changes COPD), EKG Ordered and/or Reviewed (no acute changes) - Lab Data Result diagrams: 11/09/17 18:00 11/09/17 18:00 Disposition Clinical Impression: Bronchitis COPD (chronic obstructive pulmonary disease) Qualifiers: COPD type: COPD with acute exacerbation Qualified Code(s): J44.1 - Chronic obstructive pulmonary disease with (acute) exacerbation Dyspnea Qualifiers: Dyspnea type: shortness of breath Qualified Code(s): R06.02 - Shortness of breath Disposition: Home, Self-Care Condition: (1) Good Instructions: Acute Bronchitis (ED) Additional Instructions: follow up with Dr. Bob in 2-5 days fluids use nebulizer and inhalers Prescriptions: Azithromycin 250 mg PO DAILY #6 tablet Prednisone [Prednisone 10Mg] 10 mg PO ASDIR #30 tab Forms: Patient Portal Access Time of Disposition: 18:35 Quality - Quality Measures Quality Measures: N/A - Blood Pressure Screening Does Patient Have Any of the Following: No Blood Pressure Classification: Pre-Hypertensive BP Reading Systolic Measurement: 138 Diastolic Measurement: 87 Screening for High Blood Pressure: < Pre-Hypertensive BP, F/U Documented > [ G8950] Pre-Hypertensive Follow-up Interventions: Referral to alternative/primary care provider.
[2017-11-09] MEDS ORDERED: IPRATROPIUM/ALBUTEROL (0.5MG/3MG) NEB INH ONE (17:55)
[2017-11-09] MEDS ORDERED: METHYLPREDNISOLONE PF 125MG/VIAL IVP ONE (17:55)
[2017-11-09 18:15] LABS: HEMATOCRIT 38.4 % (42.0-52.0); MEAN CELL VOLUME 87.3 fl (81-97); MEAN CORPUSCULAR HGB CONC 31.3 g/dl (32-36); MEAN PLATELET VOLUME 10.4 fl (7.4-10.4); PLATELET COUNT 341 K/uL (130-400); RED CELL DISTRIBUTION WIDTH 14.9 % (11.5-14.5); WHITE BLOOD COUNT W/O DIFF 7.3 K/uL (4.2-12.2)
[2017-11-09 18:17] LABS: MEAN CORPUSCULAR HEMOGLOBIN 27.2 pg (27-33)
[2017-11-09 18:28] LABS: BLOOD UREA NITROGEN 15 mg/dL (6-20); CREATININE 0.7 mg/dL (0.7-1.2); EST GLOMERULAR FILTRATION RATE > 60 mL/min
[2017-11-09 18:30] LABS: PLATELET ESTIMATE NORMAL (NORMAL)
[2017-11-09 18:31] LABS: GLUCOSE,RANDOM 108 mg/dL (74-109)
[2017-11-09] MEDS ORDERED: AZITHROMYCIN 500 MG TABLET PO ONE (18:32)
--- NOTE | 2017-11-10 13:27 | RADIOLOGY REPORT ---
EXAM: CHEST, TWO VIEWS HISTORY: DIFFICULTY IN BREATHING. TECHNIQUE: Frontal and lateral views of the chest were performed. Comparison: 10/04/17. FINDINGS: The heart size is normal. There is volume loss in the right hemithorax. There is severe underlying emphysema. There is no infiltrate or pleural effusion. IMPRESSION: SEVERE UNDERLYING EMPHYSEMA. VOLUME LOSS RIGHT HEMITHORAX. NO INFILTRATE OR PLEURAL EFFUSION. JOB NUMBER: [id number] [facility]
== END 2017-11-09 19:02 | disposition home or self-care (01) ==
LOC: ER 16:25
DX: J44.1 Chronic obstructive pulmonary disease with (acute) exacerbation (principal); J20.9 Acute bronchitis, unspecified; J44.0 Chronic obstructive pulmonary disease with (acute) lower respiratory infection; Z87.891 Personal history of nicotine dependence; Z99.81 Dependence on supplemental oxygen
CPT/HCPCS: 71020; 80048; 85027; 93005; 93010; 94640; 96374; 99284; J2930

== ENCOUNTER 2017-11-12 10:42 | Inpatient (IN) | payer BC, MEDICAID ==
[2017-11-12] MEDS ORDERED: IPRATROPIUM/ALBUTEROL (0.5MG/3MG) NEB INH ONE (11:06)
[2017-11-12] MEDS ORDERED: 0.9 % SODIUM CHLORIDE 1000ML 1,000 ML IV SCH (11:15)
[2017-11-12] MEDS ORDERED: METHYLPREDNISOLONE PF 125MG/VIAL IVP ONE (11:18)
[2017-11-12] MEDS ORDERED: CEFTRIAXONE SODIUM 1 GM in 0.9 % SODIUM CHLORIDE 100ML 100 ML IVPB ONE (11:32)
[2017-11-12 11:33] LABS: HEMATOCRIT 39.5 % (42.0-52.0); HEMOGLOBIN 12.6 gm/dl (14.0-18.0); MEAN CORPUSCULAR HGB CONC 31.9 g/dl (32-36); MEAN PLATELET VOLUME 9.9 fl (7.4-10.4); PLATELET COUNT 398 K/uL (130-400); RED BLOOD COUNT 4.54 M/uL (4.40-5.70); RED CELL DISTRIBUTION WIDTH 14.7 % (11.5-14.5); WHITE BLOOD COUNT W/O DIFF 10.7 K/uL (4.2-12.2)
[2017-11-12 11:36] LABS: BLOOD UREA NITROGEN 17 mg/dL (6-20); CREATININE 0.7 mg/dL (0.7-1.2); EST GLOMERULAR FILTRATION RATE > 60 mL/min; MEAN CORPUSCULAR HEMOGLOBIN 27.7 pg (27-33)
[2017-11-12 11:39] LABS: GLUCOSE,RANDOM 94 mg/dL (74-109)
[2017-11-12 11:47] LABS: PLATELET ESTIMATE NORMAL (NORMAL)
--- NOTE | 2017-11-12 13:23 | Emergency Department Record ---
History of Present Illness - General Chief Complaint: Difficulty Breathing Stated Complaint: SUSANA Time Seen by Provider: 11/12/17 11:00 Source: Patient, RN notes reviewed Mode of Arrival: Wheelchair - History of Present Illness Initial Comments: cough and short of breath and on zithromycin and here 3 days ago. Uses home oxygen Onset/Timin -: Days(s) Improves With: Bronchodilators Worsens With: Exertion Known History Of: COPD Treatments Prior to Arrival: Bronchodilator - Related Data Home Oxygen Therapy: Yes Home Oxygen Amount: 2 Liters Previous Rx's Medication Instructions Recorded Trazodone HCl 50 mg PO QHS #0 02/24/16 Budesonide [Pulmicort] 0.5 mg IH Q12H #60 nebu 12/12/16 Levothyroxine Sodium [Synthroid] 75 mcg PO DAILYTHY tablet 09/27/17 Pantoprazole Sodium [Protonix] 40 mg PO DAILYAC #0 tablet. 09/27/17 Prednisone [Prednisone 20Mg] 40 mg PO DAILY 2 Days #4 tab 09/27/17 Azithromycin 250 mg PO DAILY #6 tablet 11/09/17 Prednisone [Prednisone 10Mg] 10 mg PO ASDIR #30 tab 11/09/17 Allergies Allergy/AdvReac Type Severity Reaction Status Date / Time No Known Drug Allergies Allergy Verified 11/12/17 10:44 Travel Screening - Travel/Exposure Within Last 30 Days Have you traveled within the last 30 days?: No - Travel/Exposure Within Last Year Have you traveled outside the [place] in the last year?: No - Additonal Travel Details Have you been exposed to anyone with a communicable illness?: No - Travel Symptoms Symptom Screening: None Review of Systems Reviewed: No additional complaints except as noted below Constitutional: Reports: As per HPI. Denies: Chills, Fever, Malaise, Night sweats, Weakness, Weight change Eyes: Reports: As per HPI. Denies: Eye discharge, Eye pain, Photophobia, Vision change ENT: Reports: As per HPI. Denies: Congestion, Dental pain, Ear pain, Epistaxis , Hearing loss, Throat pain Respiratory: Reports: As per HPI, Cough, Dyspnea. Denies: Hemoptysis, Stridor, Wheezes Cardiovascular: Reports: As per HPI. Denies: Arrhythmia, Chest pain, Dyspnea on exertion, Edema, Murmurs, Orthopnea, Palpitations, Paroxysmal nocturnal dyspnea, Rheumatic Fever, Syncope Endocrine: Reports: As per HPI. Denies: Fatigue, Heat or cold intolerance, Polydipsia, Polyuria Gastrointestinal: Reports: As per HPI. Denies: Abdominal pain, Constipation, Diarrhea, Hematemesis, Hematochezia, Melena, Nausea, Vomiting Genitourinary: Reports: As per HPI. Denies: Dysuria, Frequency, Hematuria, Incontinence, Retention, Testicular pain, Testicular mass, Urgency Musculoskeletal: Reports: As per HPI. Denies: Arthralgia, Back pain, Gout, Joint swelling, Myalgia, Neck pain Skin: Reports: As per HPI. Denies: Bruising, Change in color, Change in hair/ nails, Lesions, Pruritus, Rash Neurological: Reports: As per HPI. Denies: Abnormal gait, Confusion, Headache, Numbness, Paresthesias, Seizure, Tingling, Tremors, Vertigo, Weakness Psychiatric: Reports: As per HPI. Denies: Anxiety, Auditory hallucinations, Depression, Homicidal thoughts, Suicidal thoughts, Visual hallucinations Hematological/Lymphatic: Reports: As per HPI. Denies: Anemia, Blood Clots, Easy bleeding, Easy bruising, Swollen glands Past Medical History - SOCIAL HISTORY Smoking Status: Former smoker Alcohol Use: None Drug Use: Occasional Drug Use Detail:: Marijuana - RESPIRATORY Hx Respiratory Disorders: Yes Hx COPD: Yes Hx Pneumonia: Yes Hx Sleep Apnea: Yes Hx of CPAP: (is getting soon) Comment:: Home O2 - CARDIOVASCULAR Hx Cardio Disorders: No Hx Irregular Heartbeat: (n/a) Comment:: Tolerance is fair as long as wearing O2 - NEURO Hx Neuro Disorders: No Hx Seizures: No - GI Hx GI Disorders: Yes Hx Diverticulitis: Yes Hx Reflux: Yes Comment:: colon perforation (d/t OIC) with resection, +C-diff - Hx Genitourinary Disorders: No - ENDOCRINE Hx Endocrine Disorders: Yes Hx Diabetes: No Hx Thyroid Disease: Yes (hypo) - MUSCULOSKELETAL Hx Musculoskeletal Disorders: No - PSYCH Hx Psych Problems: Yes Hx Anxiety: Yes Hx Depression: Yes - HEMATOLOGY/ONCOLOGY Hx Hematology/Oncology Disorders: Yes Hx Cancer: Yes (throat, lung) Hx Chemotherapy: Yes Hx Radiation Therapy: Yes Hx Blood Transfusions: Yes Hx Blood Transfusion Reaction: No Family Medical History Any Significant Family History?: Yes Hx Alcohol Use: Father, Brother/Sister Hx Cancer: Father, Mother, Brother/Sister Hx Depression: Mother Hx Diabetes: Father Hx Resp Disorders: Brother/Sister Physical Exam - General General Appearance: Alert, Oriented x3, Cooperative, No acute distress - Head Head exam: Normal inspection - Eye Eye exam: Normal appearance, PERRL Pupils: Normal accommodation - ENT ENT exam: Normal exam, Mucous membranes moist, Normal external ear exam, Normal orophraynx, TM's normal bilaterally Ear exam: Normal external inspection. negative: External canal tenderness Nasal Exam: Normal inspection. negative: Discharge, Sinus tenderness Mouth exam: Normal external inspection, Tongue normal Teeth exam: Normal inspection. negative: Dental caries Throat exam: Normal inspection. negative: Tonsillar erythema, Tonsillar exudate - Neck Neck exam: Normal inspection, Full ROM. negative: Tenderness - Respiratory Respiratory exam: Normal lung sounds bilaterally. negative: Respiratory distress - Cardiovascular Cardiovascular Exam: Regular rate, Normal rhythm, Normal heart sounds - GI/Abdominal GI/Abdominal exam: Soft, Normal bowel sounds. negative: Tenderness - Rectal Rectal exam: Deferred - exam: Deferred - Extremities Extremities exam: Normal inspection, Full ROM, Normal capillary refill. negative: Tenderness - Back Back exam: Reports: Normal inspection, Full ROM. Denies: Muscle spasm, Rash noted, Tenderness - Neurological Neurological exam: Alert, Normal gait, Oriented X3, Reflexes normal - Psychiatric Psychiatric exam: Normal affect, Normal mood - Skin Skin exam: Dry, Intact, Normal color, Warm Course Vital Signs 11/12/17 11/12/17 11/12/17 10:47 11:12 12:59 Temperature 97.9 F Pulse Rate 80 77 72 Respiratory 20 19 20 Rate Blood Pressure 136/86 Pulse Ox 96 91 L 96 - Reevaluation(s) Reevaluation #1: patient failed out patient treatment 11/12/17 16:21 Reevaluation #2: Admit to Dr. Bush 11/12/17 16:21 Medical Decision Making - Lab Data Result diagrams: 11/12/17 11:10 11/12/17 11:10 Lab Results 11/12/17 11/12/17 11/12/17 Range/Units 11:10 11:10 11:10 WBC 10.7 (4.2-12.2) K/uL RBC 4.54 (4.40-5.70) M/uL Hgb 12.6 L (14.0-18.0) gm/dl Hct 39.5 L (42.0-52.0) % MCV 87.0 (81-97) fl MCH 27.7 (27-33) pg MCHC 31.9 L (32-36) g/dl RDW 14.7 H (11.5-14.5) % Plt Count 398 (130-400) K/uL MPV 9.9 (7.4-10.4) fl Neutrophils % 63.0 (47-80) % Band Neutrophils % 1.0 (0-5) % Eosinophils % Not Reportable Basophils % Not Reportable Lymphocytes 24.0 (16-45) % Monocytes 10.0 H (0-9) % Basophils 1.0 (0-6) % Platelet Estimate Normal (NORMAL) RBC Morphology Normal Eosinophil Count 1.0 (0-6) % APTT 28.60 (24.5-39.1) SECONDS Sodium 139 (136-145) mmol/L Potassium 4.9 H (3.4-4.5) mmol/L Chloride 98 (98-107) mmol/L Carbon Dioxide 29.0 (22-29) mmol/L Anion Gap 12.0 (7-16) BUN 17 (6-20) mg/dL Creatinine 0.7 (0.7-1.2) mg/dL Estimated GFR > 60 mL/min Random Glucose 94 (74-109) mg/dL Calcium 9.8 (8.6-10.0) mg/dL Troponin T < 0.010 (0-0.010) ng/mL Disposition Clinical Impression: COPD (chronic obstructive pulmonary disease) with acute bronchitis, Hypoxia Decision to Admit: Admit from ER Condition: (1) Good Instructions: COPD (Chronic Obstructive Pulmonary Disease) (ED), Dyspnea (ED) Additional Instructions: continue prednisone finish zitromycin start keflex 500 mg four times a day Forms: Patient Portal Access Time of Disposition: 16:22 Quality - Quality Measures Quality Measures: N/A - Blood Pressure Screening Does Patient Have Any of the Following: No Blood Pressure Classification: Pre-Hypertensive BP Reading Systolic Measurement: 136 Diastolic Measurement: 86 Screening for High Blood Pressure: < Pre-Hypertensive BP, F/U Documented > [ G8950] Pre-Hypertensive Follow-up Interventions: Referral to alternative/primary care provider.
[2017-11-12] MEDS ORDERED: METHYLPREDNISOLONE PF 125MG/VIAL IVP SCH (17:10)
[2017-11-12] MEDS ORDERED: CEFTRIAXONE SODIUM 1 GM in 0.9 % SODIUM CHLORIDE 100ML 100 ML IVPB SCH (17:10)
[2017-11-12] MEDS ORDERED: ALBUTEROL SULFATE (0.083%) 2.5 MG/3 ML NEB INH PRN (17:10)
[2017-11-12] MEDS: IPRATROPIUM/ALBUTEROL (0.5MG/3MG) NEB INH SCH ×2 (17:26→21:53)
[2017-11-12] MEDS ORDERED: PNEUM 23-VAL ADULT IM ONE (17:54)
[2017-11-12] MEDS: CEFTRIAXONE SODIUM 1 GM in 0.9 % SODIUM CHLORIDE 100ML 100 ML IVPB SCH ×2 (17:59→23:08)
[2017-11-12] MEDS: 0.9 % SODIUM CHLORIDE 1000ML 1,000 ML IV PRN (18:01)
[2017-11-12] MEDS: METHYLPREDNISOLONE PF 125MG/VIAL IVP SCH (20:44)
[2017-11-12] MEDS: TRAZODONE 50 MG TABLET PO SCH (21:23)
[2017-11-12] MEDS: BUPROPION HCL 150 MG TAB.SR.12H PO SCH (21:24)
--- NOTE | 2017-11-13 00:23 | RADIOLOGY REPORT ---
EXAM: CHEST 2 VIEWS HISTORY: COUGH, SHORTNESS OF BREATH. TECHNIQUE: PA and lateral views. COMPARISON: Two-view chest 11/09/17. The report of the prior study is not as yet available within PACS. FINDINGS: Stable heart size. Persistent pleural opacity right base. Lungs again appear hyperinflated suggesting underlying COPD. Scattered streaky parenchymal density, as before. Chronic deformity right fifth rib posteriorly, as before. When comparison is made with the prior study, no definite new infiltrate seen and no pneumothorax evident. IMPRESSION: 1. CHEST APPEARS ESSENTIALLY UNCHANGED FROM 11/09/17 WITH NUMEROUS FINDINGS AGAIN NOTED, DESCRIBED ABOVE. 2. NO DEFINITE NEW INFILTRATE SEEN TODAY COMPARED WITH THE PRIOR STUDY. JOB NUMBER: [id number] [facility]
[2017-11-13] MEDS: IPRATROPIUM/ALBUTEROL (0.5MG/3MG) NEB INH SCH ×6 (02:24→21:05)
[2017-11-13] MEDS: METHYLPREDNISOLONE PF 125MG/VIAL IVP SCH ×3 (04:17→20:57)
[2017-11-13] MEDS: LEVOTHYROXINE SODIUM 75 MCG TABLET PO SCH (06:03)
[2017-11-13] MEDS: PANTOPRAZOLE SODIUM 40 MG TABLET PO SCH (06:04)
[2017-11-13] MEDS: FERROUS SULFATE 325 MG TAB PO SCH (10:00)
[2017-11-13] MEDS: ENOXAPARIN 40 MG/0.4 ML SYR SC SCH (10:01)
[2017-11-13] MEDS: AZITHROMYCIN 500 MG TABLET PO SCH (10:01)
[2017-11-13] MEDS: BUPROPION HCL 150 MG TAB.SR.12H PO SCH ×2 (10:01→21:35)
[2017-11-13] MEDS: CEFTRIAXONE SODIUM 1 GM in 0.9 % SODIUM CHLORIDE 100ML 100 ML IVPB SCH ×2 (12:08→23:53)
[2017-11-13] MEDS: 0.9 % SODIUM CHLORIDE 1000ML 1,000 ML IV PRN (14:37)
[2017-11-13] MEDS: TRAZODONE 50 MG TABLET PO SCH (21:35)
[2017-11-14] MEDS: IPRATROPIUM/ALBUTEROL (0.5MG/3MG) NEB INH SCH ×6 (01:07→21:36)
[2017-11-14] MEDS: METHYLPREDNISOLONE PF 125MG/VIAL IVP SCH ×2 (03:32→11:40)
[2017-11-14] MEDS: PANTOPRAZOLE SODIUM 40 MG TABLET PO SCH (06:23)
[2017-11-14] MEDS: LEVOTHYROXINE SODIUM 75 MCG TABLET PO SCH (06:23)
[2017-11-14] MEDS: FERROUS SULFATE 325 MG TAB PO SCH (09:12)
[2017-11-14] MEDS: AZITHROMYCIN 500 MG TABLET PO SCH (09:13)
[2017-11-14] MEDS: ENOXAPARIN 40 MG/0.4 ML SYR SC SCH (09:13)
[2017-11-14] MEDS: BUPROPION HCL 150 MG TAB.SR.12H PO SCH ×2 (09:13→22:10)
[2017-11-14] MEDS ORDERED: PNEUM 13-VAL/PF 0.5 ML IM ONE (10:22)
[2017-11-14] MEDS: CEFTRIAXONE SODIUM 1 GM in 0.9 % SODIUM CHLORIDE 100ML 100 ML IVPB SCH ×2 (11:40→23:58)
--- NOTE | 2017-11-14 12:30 | History and Physical Report ---
DATE OF ADMISSION: 11/12/2017 CHIEF COMPLAINT: Dyspnea, cough, congestion, failed outpatient therapy of azithromycin and prednisone. HISTORY OF PRESENT ILLNESS: This 57-year-old male presented to two times to the emergency department. The second time he felt he was too short of breath to go home. He states that he could hardly get around the room to make his meals and he felt that he needed to be in the hospital. He has home oxygen at 2L/min nasal cannula, has known COPD and he stopped smoking about 6 months ago. He uses 2L/min nasal cannula. He had congestion, cough, and sputum production which was worse in the last 5 days. He had 2 chest x-rays 3 days before admission and then the day of admission which showed COPD but no infiltrate. White count was 10,700, hemoglobin 12.6. Cardiac enzymes, troponin T was negative. BUN and creatinine in normal range. BUN 17, creatinine 0.7. Potassium 4.9, sodium 139. PAST MEDICAL HISTORY: COPD with home oxygen at 2L/min. He has been on that for about a year. He had a lung resection of the right lower lobe because of cancer, History of ischemic enterocolitis which he had a resection prior for an adenomatous polyp. He had a colon perforation in May 2015. He has a history of metastatic lung cancer. 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 Tobacco use disorder, which he stopped smoking approximately 6 months ago. He also has hypothyroidism and some anxiety. PAST SURGICAL HISTORY: Thyroid surgery, lung surgery, colon surgery, and small bowel surgery for perforation of the colon in 2015. MEDICATIONS: 1. Anoro Ellipta 62.5/25 one daily. 2. Trazodone 50 mg at bedtime. 3. He was on prednisone taper about 40 mg a day. He was on that for the last 3 days. 4. Protonix 40 mg daily. 5. Levothyroxine 75 mcg a day. 6. Ferrous sulfate 325 a day. 7. Wellbutrin 300 mg XL once a day. 8. Pulmicort nebulization 0.5 mg b.i.d. 9. Azithromycin. He has been on that for about 3 days. 10. Albuterol ProAir inhaler 2 puffs q.4 h. p.r.n. ALLERGIES: No known allergies. SOCIAL HISTORY: No alcohol or drug use. FAMILY HISTORY: Alcoholism with father, brother, and sister. Cancer in the father, mother, brother, and sister. Depression with the mother. Diabetes with the father. Respiratory problems with the brother and sister. REVIEW OF SYSTEMS: HEENT: See Chief Complaint. He has congestion, sore throat, cough, and productive sputum. Cardiovascular: No chest pain, palpitations, or arrhythmia. Respiratory: See Chief Complaint. He uses home oxygen at 2L/min for the last 6 months. He has COPD, history of lung cancer, and the coughing is producing more sputum than usual. Gastrointestinal: No nausea, vomiting, diarrhea, black stools, or bloody stools. No abdominal pain. Genitourinary: No dysuria, hematuria, frequency, or burning on urination. Musculoskeletal: He has some arthritis in the joints but he is able to move all 4 extremities and ambulates well. He is short of breath with exertion on moving more than 5-10 feet at home. Neurological: No CVA, paralysis, or paresthesias. Endocrine: No diabetes. He does have hypothyroidism. Integument: No rash, ulcers, change in moles, or yellow skin. He has had skin cancer in the past. PHYSICAL EXAMINATION: VITALS: Height 5 feet 7 inches, weight 133 pounds. Temperature 97.8, pulse 95, blood pressure 118/70, pulse ox 95% on 2L/min nasal cannula on 28% O2, respiratory rate of 19. HEENT: Pupils are equal, round, and reactive to light and accommodation. Extraocular muscles are intact. Throat is clear. Nose is clear. Tympanic membranes are ibarra. NECK: Supple. No jugular venous distention. No hepatojugular reflux. No carotid bruits. Thyroid is smooth. CARDIOVASCULAR: Regular rate and rhythm without murmurs, clicks, rubs, or gallops. RESPIRATORY: He does have a cough, congestion. He has decreased breath sounds bilaterally. ABDOMEN: Soft, nontender. No hepatosplenomegaly. No rebound or rigidity. EXTREMITIES: No pitting edema. No cyanosis, no clubbing. Full range of motion. Peripheral pulses are good. BREASTS: Normal male breasts. RECTAL: Deferred. GENITALIA: Deferred. NEUROLOGIC: Cranial nerves II-XII intact. No gross defects. Sensation normal, strength normal. Deep tendon reflexes equal bilaterally with Babinski negative. MENTAL STATUS: Alert and oriented x3. IMPRESSION: 1. Acute bronchitis. 2. Chronic obstructive pulmonary disease exacerbation. 3. Hypoxia on 2L nasal cannula on home oxygen. 4. History of lung cancer. 5. History of skin cancer. 6. History of tobacco use. Stopped smoking about 6 months ago. 7. He has had a history of multiple abdominal surgeries and diverticulitis and adenomatous colon polyp removal with perforation of his colon in July 2016. PLAN: IV Rocephin 1 g q.12 h., Solu-Medrol 60 mg q.8 h. after a 125 bolus in the emergency department, azithromycin 500 mg a day, oxygen therapy at 2L/min nasal cannula, DuoNeb q.4 h., continue his home medications. MTDD
[2017-11-14] MEDS: PREDNISONE 20 MG TAB PO SCH (17:40)
[2017-11-14] MEDS: TRAZODONE 50 MG TABLET PO SCH (22:10)
[2017-11-15] MEDS: IPRATROPIUM/ALBUTEROL (0.5MG/3MG) NEB INH SCH ×3 (01:42→09:48)
[2017-11-15] MEDS: PANTOPRAZOLE SODIUM 40 MG TABLET PO SCH (07:28)
[2017-11-15] MEDS: LEVOTHYROXINE SODIUM 75 MCG TABLET PO SCH (07:28)
[2017-11-15] MEDS: PREDNISONE 20 MG TAB PO SCH (08:26)
--- NOTE | 2017-11-15 08:27 | Discharge Note ---
VTE H&P Assessment - Risk for VTE Risk for VTE: Yes Risk Level: Moderate Risk Assessment Date: 11/13/17 Risk Assessment Time: 15:00 VTE Orders Placed or Will Be Placed: Yes Discharge Medications - Discharge Medications Prescriptions: Azithromycin [Zithromax] 500 mg PO DAILY #7 tab Cephalexin [Keflex] 500 mg PO QID #40 cap Ipratropium/Albuterol [Duoneb] 3 ml INH RESP.Q4H.WA #120 ampul.neb Prednisone [Prednisone 10Mg] 10 mg PO ASDIR #30 tab Home Medications: Ambulatory Orders Albuterol Sulfate [Proair Hfa] 1 puff INH Q6H PRN 04/05/15 [Last Taken 11/11/17] Trazodone HCl 50 mg PO QHS #0 02/24/16 [Last Taken 11/11/17] Budesonide [Pulmicort] 0.5 mg IH Q12H #60 nebu 12/12/16 [Last Taken 11/11/17] Ferrous Sulfate [Iron] 325 mg PO DAILY 07/05/17 [Last Taken 11/11/17] Bupropion HCl [Wellbutrin Xl] 300 mg PO DAILY 09/26/17 [Last Taken 11/11/17] Levothyroxine Sodium [Synthroid] 75 mcg PO DAILYTHY tablet 09/27/17 [Last Taken 11/11/17] Pantoprazole Sodium [Protonix] 40 mg PO DAILYAC #0 tablet. 09/27/17 [Last Taken 11/11/17] Albuterol Sulfate 0.083% [Neb] 2.5 mg INH RESP.Q1H PRN nebulization solution [Last Taken Unknown] Azithromycin [Zithromax] 500 mg PO DAILY #7 tab 11/15/17 [Last Taken Unknown] Cephalexin [Keflex] 500 mg PO QID #40 cap 11/15/17 [Last Taken Unknown] Ipratropium/Albuterol [Duoneb] 3 ml INH RESP.Q4H.WA #120 ampul.neb 11/15/17 [ Last Taken Unknown] Prednisone [Prednisone 10Mg] 10 mg PO ASDIR #30 tab 11/15/17 [Last Taken Unknown ] Discharge Note - Date Date of Discharge Note: 11/15/17 Condition: (1) Good Instructions: COPD (Chronic Obstructive Pulmonary Disease) (ED), Dyspnea (ED) Additional Instructions: continue prednisone finish zitromycin start keflex 500 mg four times a day Forms: Patient Portal Access
[2017-11-15] MEDS: FERROUS SULFATE 325 MG TAB PO SCH (09:35)
[2017-11-15] MEDS: ENOXAPARIN 40 MG/0.4 ML SYR SC SCH (09:35)
[2017-11-15] MEDS: AZITHROMYCIN 500 MG TABLET PO SCH (09:36)
[2017-11-15] MEDS: BUPROPION HCL 150 MG TAB.SR.12H PO SCH (09:36)
--- NOTE | 2017-11-15 13:49 | Discharge Summary ---
DATE OF ADMISSION: 11/12/2017 DATE OF DISCHARGE: 11/15/2017 at 8:30 a.m. DISCHARGE DIAGNOSES: 1. Acute bronchitis. 2. COPD exacerbation. 3. Hypoxia secondary to COPD and home oxygen at 2 liters per minute at rest, 3 liters per minute with ambulation. 4. History of lung cancer. 5. History of tobacco use. Stopped smoking about 6 months ago. ATTENDING PHYSICIAN: Nikita Bush DO REASON OF HOSPITALIZATION: Dyspnea, cough, congestion, failed outpatient therapy of azithromycin, and prednisone. HISTORY: This 57-year-old presented to the Emergency Department twice. The second time he was more short-of breath. He states that the outpatient therapy was not working. He was admitted to the hospital for exacerbation of COPD, acute bronchitis, further evaluation, and hypoxia. SIGNIFICANT FINDINGS FROM EXAMINATION: He had 2 chest x-rays done at both ER visits, 3 days apart, basically essentially unchanged with numerous findings again noted as described above. No definitive infiltrate seen today compared with the prior study. He has hyperinflated lungs, underlying COPD, streaky parenchymal density as described before, chronic deformity right fifth rib posteriorly as before. No definitive infiltrate seen. No pneumothorax apparent. Stable heart size. LABORATORY: WBC was 10,700, hemoglobin was 12.7. Cardiac enzymes were normal. BUN was 17, creatinine was 0.7, potassium was 4.9. THERAPY PROVIDED: The patient was given oxygen therapy, Solu-Medrol IV 125 in the ER and then 60 mg every 8 hours. He was continued on Rocephin 1 gram every 12 hours, azithromycin 500 mg daily, and breathing treatments of DuoNebs every 4 hours, albuterol every hour p.r.n., and cautious IV hydration. Patient gradually improved, feeling better on the day of discharge, but still requiring breathing treatments every 4 hours of DuoNeb. Will send him home with DuoNebs. He normally uses Anoro Ellipta 62.5/25 one daily, but I think acutely I would like him to be on DuoNebs every 4 hours [address] he sees Dr. Bob, and he can switch him over to the inhaler at that time. If he has difficulties with getting the DuoNeb nebulization medications, then we will switch over to the Anoro Ellipta and use albuterol p.r.n. every 4 hours. HOSPITAL COURSE: Patient gradually improved. CONDITION ON DISCHARGE: Improved. DISCHARGE INSTRUCTIONS: Keflex 500 mg 4 times a day for 10 days and azithromycin 500 mg daily for 7 days. Follow up with Dr. Bob on Tuesday11/21/2017, sooner if having more difficulties. Oxygen 2 liters per minute at rest, 3 liters per minute walking. DuoNebs every 4 hours while awake. We will start a prednisone taper of 40 mg a day for 3 days, 30 mg a day for 3 days, 20 mg a day for 3 days, and 10 mg a day for 3 days. Will hold Anoro Ellipta until Tuesday when he can switch over after he has been stabilized at home with the DuoNebs. CC: VANESSA BOB MD, FACP MTDD
== END 2017-11-15 11:30 | disposition home or self-care (01) | DRG 192 ==
LOC: ER 10:42 → MEDSURG 16:52
PROVIDERS: ADMIT Emergency Medicine; ATTEND Emergency Medicine
DX: J44.1 Chronic obstructive pulmonary disease with (acute) exacerbation (principal); J20.9 Acute bronchitis, unspecified; J44.0 Chronic obstructive pulmonary disease with (acute) lower respiratory infection; E03.9 Hypothyroidism, unspecified; Z85.118 Personal history of other malignant neoplasm of bronchus and lung; Z87.891 Personal history of nicotine dependence
CPT/HCPCS: 71046; 80048; 84484; 85027; 85730; 90670; 94640; 94761; 96365; 96375; 99285; J1650; J2930; J3490; J7030; J7512

== ENCOUNTER 2017-12-22 13:53 | Day surgery (SDC) | payer BC, MEDICAID ==
[2017-12-22] MEDS ORDERED: LIDOCAINE 2% MDV (20MG/ML) 20ML VIAL IV ONE (13:54)
[2017-12-22] MEDS ORDERED: PROPOFOL 10 MG/ML VIAL IV ONE (13:54)
--- NOTE | 2017-12-23 13:31 | Operative Note ---
DATE OF SURGERY: 12/22/2017 OPERATION: COLONOSCOPY with cold forceps polypectomy and cold snare polypectomy. PREOPERATIVE DIAGNOSIS: Anastomotic polyp. POSTOPERATIVE DIAGNOSES: 1. Anastomotic polyp. 2. Sigmoid diverticulosis moderate to severe. PROCEDURE: After informed consent was obtained from the patient, he was placed in the left lateral decubitus position in the endoscopy suite, sedated and monitored by the department of anesthesia. Once sedated, a digital rectal exam was unremarkable. A well-lubricated [id number] colonoscope was inserted into the rectum and advanced to the cecum. The annalisa-cecum consisting of ileocecal anastomosis appeared unremarkable other than a somewhat nodular subtle polypoid deformity which was not clearly polypoid changes that were readily removable via endoscope. However, multiple samples were obtained with a cold snare and cold forceps. No excessive bleeding was noted. The remainder of the anastomosis appeared unremarkable. The remainder of the ascending colon, transverse colon, descending colon, sigmoid colon, and rectum were unremarkable other than [id number] diverticular changes noted in the sigmoid colon. The rectum was unremarkable in forward and J-turn views. The endoscope was straightened, the rectal ampulla deflated, and the endoscope was removed. RECOMMENDATIONS: We will await results of tissue histology. The patient should resume his medications. As always, thank you for allowing me to participate in the healthcare of your patients. CC: VANESSA FERNANDEZ MD, FACP Dr. Aimee ROMO
== END 2017-12-22 15:35 | disposition home or self-care (01) ==
LOC: HOP 13:53
PROVIDERS: ATTEND Internal Medicine Gastroenterology
DX: K63.5 Polyp of colon (principal); K57.30 Diverticulosis of large intestine without perforation or abscess without bleeding; K21.9 Gastro-esophageal reflux disease without esophagitis; J45.909 Unspecified asthma, uncomplicated

== ENCOUNTER 2018-01-12 13:38 | Emergency (ER) | payer MEDICAID ==
[2018-01-12] MEDS ORDERED: AZITHROMYCIN 500 MG TABLET PO ONE (13:48)
[2018-01-12] MEDS ORDERED: IPRATROPIUM/ALBUTEROL (0.5MG/3MG) NEB INH ONE (13:48)
[2018-01-12] MEDS ORDERED: PREDNISONE 20 MG TAB PO ONE (13:48)
--- NOTE | 2018-01-12 13:50 | Emergency Department Record ---
History of Present Illness - General Chief Complaint: Shortness of breath Stated Complaint: SHORTNESS OF BREATH Source: Patient Mode of Arrival: Ambulatory Limitations: No limitations - History of Present Illness Initial Comments: 57 yo male with a history of COPD on home oxygen presents with one week of cough. The cough is mildly productive with greenish sputum. Mr Mae was at his doctor today it was recommended he be evaluated in the ED. No fever. No blood in the sputum. He is not on any current antibiotic or oral steroid. No leg swelling or edema. MD Complaint: Cough, Shortness of breath (COPD) Severity: Moderate Consistency: Intermittent Improves With: Nothing Worsens With: Coughing Known History Of: COPD Context: Recent illness Associated Symptoms: Cough - Related Data Home Medications Medication Instructions Recorded Confirmed Last Taken Budesonide [Pulmicort] 0.5 mg IH Q12H 01/12/18 01/12/18 01/11/18 20:00 Umeclidinium Brm/Vilanterol Tr 1 inh INH DAILY 01/12/18 01/12/18 01/12/18 08:00 [Anoro Ellipta 62.5-25 Mcg INH] Previous Rx's Medication Instructions Recorded Trazodone HCl 50 mg PO QHS #0 02/24/16 Levothyroxine Sodium [Synthroid] 75 mcg PO DAILYTHY tablet 09/27/17 Pantoprazole Sodium [Protonix] 40 mg PO DAILYAC #0 tablet.dr 09/27/17 Albuterol Sulfate 0.083% [Neb] 2.5 mg INH RESP.Q1H PRN 11/15/17 nebulization solution Azithromycin [Zithromax] 250 mg PO DAILY #4 tab 01/12/18 Prednisone [Prednisone 20Mg] 20 mg PO BID #10 tab 01/12/18 Allergies Allergy/AdvReac Type Severity Reaction Status Date / Time No Known Drug Allergies Allergy Verified 01/12/18 13:45 Review of Systems Constitutional: Denies: Chills, Fever, Malaise, Weakness Eyes: Denies: Eye discharge ENT: Reports: Congestion. Denies: Throat pain Respiratory: Reports: Cough, Wheezes. Denies: Hemoptysis Cardiovascular: Denies: Chest pain, Palpitations, Syncope Endocrine: Denies: Fatigue Gastrointestinal: Denies: Abdominal pain, Diarrhea, Nausea, Vomiting Genitourinary: Denies: Dysuria, Frequency, Hematuria Musculoskeletal: Denies: Arthralgia, Back pain, Joint swelling, Myalgia Skin: Denies: Bruising, Change in color, Rash Neurological: Denies: Headache, Numbness, Weakness Psychiatric: Denies: Anxiety Hematological/Lymphatic: Denies: Blood Clots, Easy bleeding, Easy bruising, Swollen glands Past Medical History - SOCIAL HISTORY Smoking Status: Former smoker Alcohol Use Comment: Sober for 4 years - RESPIRATORY Hx of CPAP: (is getting soon) Comment:: Home O2 - CARDIOVASCULAR Hx Cardio Disorders: No - NEURO Hx Neuro Disorders: No - GI Hx GI Disorders: Yes Hx Diverticulitis: Yes Hx Reflux: Yes Hx of Polyps: Yes Comment:: colon perforation (d/t OIC) with resection, +C-diff - Hx Genitourinary Disorders: No - ENDOCRINE Hx Endocrine Disorders: Yes Hx Thyroid Disease: Yes (hypo) - MUSCULOSKELETAL Hx Musculoskeletal Disorders: No - PSYCH Hx Psych Problems: Yes Hx Anxiety: Yes Hx Depression: Yes - HEMATOLOGY/ONCOLOGY Hx Hematology/Oncology Disorders: Yes Hx Anemia: Yes Hx Cancer: Yes (throat, lung) Hx Chemotherapy: Yes Hx Radiation Therapy: Yes Hx Blood Transfusions: Yes Hx Blood Transfusion Reaction: No Family Medical History Hx Alcohol Use: Father, Brother/Sister Hx Cancer: Father, Mother, Brother/Sister Hx Depression: Mother Hx Diabetes: Father Hx Resp Disorders: Brother/Sister Physical Exam - General General Appearance: Alert, Oriented x3, Cooperative, No acute distress Limitations: No limitations - Head Head exam: Normal inspection - Eye Eye exam: Normal appearance, PERRL. negative: Conjunctival injection, Scleral icterus - ENT ENT exam: Normal exam, Mucous membranes moist Ear exam: Normal external inspection Nasal Exam: Normal inspection Mouth exam: Normal external inspection Teeth exam: Normal inspection Throat exam: Normal inspection - Neck Neck exam: Normal inspection, Full ROM. negative: Tenderness - Respiratory Respiratory exam: Decreased breath sounds, Prolonged expiratory, Rhonchi, Wheezes, Other (No distress, no conversational dyspnea). negative: Normal lung sounds bilaterally, Accessory muscle use, Respiratory distress - Cardiovascular Cardiovascular Exam: Regular rate, Normal rhythm, Normal heart sounds Peripheral Pulses: 2+: Radial (R), Radial (L) - Rectal Rectal exam: Deferred - exam: Deferred - Extremities Extremities exam: Normal inspection. negative: Calf tenderness, Pedal edema, Tenderness - Back Back exam: Reports: Normal inspection, Full ROM. Denies: Muscle spasm, Rash noted, Tenderness - Neurological Neurological exam: Alert, Normal gait, Oriented X3 - Psychiatric Psychiatric exam: Normal affect, Normal mood. negative: Agitated, Anxious - Skin Skin exam: Dry, Intact, Normal color, Warm Course - Reevaluation(s) Reevaluation #1: The patient was rechecked after the Duoneb His air exchange is greatly improved. 01/12/18 14:28 01/12/18 14:28 No hypoxia on his normal home oxygen 01/12/18 14:57 The CXR was reviewed Chronic changes without any new compared to the prior. Disposition Disposition: Discharge Clinical Impression: COPD (chronic obstructive pulmonary disease) with emphysema, Bronchitis Disposition: Home, Self-Care Condition: (1) Good Instructions: Acute Bronchitis (ED), COPD (Chronic Obstructive Pulmonary Disease) (ED) Additional Instructions: Return to the ER if worse, fever, short of breath or any concerns Take the Predinsone and Zithromax as directed Prescriptions: Azithromycin [Zithromax] 250 mg PO DAILY #4 tab Prednisone [Prednisone 20Mg] 20 mg PO BID #10 tab Forms: Patient Portal Access Time of Disposition: 14:27 Quality - Quality Measures Quality Measures: N/A - Blood Pressure Screening Does Patient Have Any of the Following: No Blood Pressure Classification: Pre-Hypertensive BP Reading Systolic Measurement: 126 Diastolic Measurement: 80 Screening for High Blood Pressure: < Pre-Hypertensive BP, F/U Documented > [ [id number]] Pre-Hypertensive Follow-up Interventions: Referral to alternative/primary care provider.
== END 2018-01-12 15:06 | disposition home or self-care (01) ==
LOC: ER 13:38
DX: J43.9 Emphysema, unspecified (principal); J20.9 Acute bronchitis, unspecified; Z99.81 Dependence on supplemental oxygen; Z87.891 Personal history of nicotine dependence
CPT/HCPCS: 99283; 99284; 71046; 94640; J7512

== ENCOUNTER 2018-02-12 14:06 | Inpatient (IN) | payer MEDICAID ==
[2018-02-12] MEDS ORDERED: IPRATROPIUM/ALBUTEROL (0.5MG/3MG) NEB INH ONE (15:10)
[2018-02-12] MEDS ORDERED: METHYLPREDNISOLONE PF 125MG/VIAL IVP ONE (15:12)
[2018-02-12 15:52] LABS: BASO % 0.3 % (0-6); EOS % 1.3 % (0-6); GRAN % 77.8 % (47-80); HEMATOCRIT 41.5 % (42.0-52.0); HEMOGLOBIN 13.1 gm/dl (14.0-18.0); LYMPH % 11.2 % (16-45); MEAN CELL VOLUME 91.6 fl (81-97); MEAN CORPUSCULAR HEMOGLOBIN 28.9 pg (27-33); MEAN CORPUSCULAR HGB CONC 31.6 g/dl (32-36); MEAN PLATELET VOLUME 9.2 fl (7.4-10.4); MONO % 9.4 % (0-9); PLATELET COUNT 427 K/uL (130-400); RED BLOOD COUNT 4.53 M/uL (4.40-5.70); RED CELL DISTRIBUTION WIDTH 15.6 % (11.5-14.5)
[2018-02-12 16:08] LABS: BLOOD UREA NITROGEN 14 mg/dL (6-20); CREATININE 0.7 mg/dL (0.7-1.2); EST GLOMERULAR FILTRATION RATE > 60 mL/min
[2018-02-12 16:11] LABS: GLUCOSE,RANDOM 77 mg/dL (74-109)
[2018-02-12 16:16] LABS: NTpro B-NATRIURETIC PEPTIDE 58.08 pg/mL (<125)
--- NOTE | 2018-02-12 18:17 | Emergency Department Record ---
History of Present Illness - General Chief Complaint: Shortness of breath Stated Complaint: SUSANA Time Seen by Provider: 02/12/18 14:42 Source: Patient Mode of Arrival: Ambulatory Limitations: No limitations - History of Present Illness Initial Comments: pt here for increased sob. Complaint: Cough, Shortness of breath Onset/Timin -: Days(s) Consistency: Constant Improves With: Nothing Worsens With: Nothing Associated Symptoms: Denies other symptoms, Cough Treatments Prior to Arrival: None, Asprin, Oxygen - Related Data Home Oxygen Therapy: Yes Home Oxygen Amount: 2 Liters Home Medications Medication Instructions Recorded Confirmed Last Taken Gabapentin [Neurontin] 100 mg PO TID 02/12/18 02/12/18 Unknown Montelukast Sodium 10 mg PO DAILY 02/12/18 02/12/18 Unknown Previous Rx's Medication Instructions Recorded Trazodone HCl 50 mg PO QHS #0 02/24/16 Levothyroxine Sodium [Synthroid] 75 mcg PO DAILYTHY tablet 09/27/17 Pantoprazole Sodium [Protonix] 40 mg PO DAILYAC #0 tablet. 09/27/17 Albuterol Sulfate 0.083% [Neb] 2.5 mg INH RESP.Q1H PRN 11/15/17 nebulization solution Allergies Allergy/AdvReac Type Severity Reaction Status Date / Time No Known Drug Allergies Allergy Verified 01/12/18 13:45 Travel Screening - Travel/Exposure Within Last 30 Days Have you traveled within the last 30 days?: No Review of Systems Reviewed: No additional complaints except as noted below Constitutional: Reports: As per HPI. Denies: Chills, Fever, Malaise, Night sweats, Weakness, Weight change Eyes: Reports: As per HPI. Denies: Eye discharge, Eye pain, Photophobia, Vision change ENT: Reports: As per HPI. Denies: Congestion, Dental pain, Ear pain, Epistaxis , Hearing loss, Throat pain Respiratory: Reports: As per HPI. Denies: Cough, Dyspnea, Hemoptysis, Stridor, Wheezes Cardiovascular: Reports: As per HPI. Denies: Arrhythmia, Chest pain, Dyspnea on exertion, Edema, Murmurs, Orthopnea, Palpitations, Paroxysmal nocturnal dyspnea, Rheumatic Fever, Syncope Endocrine: Reports: As per HPI. Denies: Fatigue, Heat or cold intolerance, Polydipsia, Polyuria Gastrointestinal: Reports: As per HPI. Denies: Abdominal pain, Constipation, Diarrhea, Hematemesis, Hematochezia, Melena, Nausea, Vomiting Genitourinary: Reports: As per HPI. Denies: Dysuria, Frequency, Hematuria, Incontinence, Retention, Testicular pain, Testicular mass, Urgency Musculoskeletal: Reports: As per HPI. Denies: Arthralgia, Back pain, Gout, Joint swelling, Myalgia, Neck pain Skin: Reports: As per HPI. Denies: Bruising, Change in color, Change in hair/ nails, Lesions, Pruritus, Rash Neurological: Reports: As per HPI. Denies: Abnormal gait, Confusion, Headache, Numbness, Paresthesias, Seizure, Tingling, Tremors, Vertigo, Weakness Psychiatric: Reports: As per HPI. Denies: Anxiety, Auditory hallucinations, Depression, Homicidal thoughts, Suicidal thoughts, Visual hallucinations Hematological/Lymphatic: Reports: As per HPI. Denies: Anemia, Blood Clots, Easy bleeding, Easy bruising, Swollen glands Past Medical History - SOCIAL HISTORY Smoking Status: Former smoker Alcohol Use: None Drug Use: None - RESPIRATORY Hx Respiratory Disorders: Yes Hx of CPAP: (is getting soon) Comment:: Home O2 - CARDIOVASCULAR Hx Cardio Disorders: No Hx Irregular Heartbeat: (n/a) Comment:: Tolerance is fair as long as wearing O2 - NEURO Hx Neuro Disorders: No Hx Seizures: No - GI Hx GI Disorders: Yes Hx Diverticulitis: Yes Hx Reflux: Yes Hx of Polyps: Yes Comment:: colon perforation (d/t OIC) with resection, +C-diff - Hx Genitourinary Disorders: No - ENDOCRINE Hx Endocrine Disorders: Yes Hx Thyroid Disease: Yes (hypo) - MUSCULOSKELETAL Hx Musculoskeletal Disorders: No - PSYCH Hx Psych Problems: Yes Hx Anxiety: Yes Hx Depression: Yes - HEMATOLOGY/ONCOLOGY Hx Hematology/Oncology Disorders: Yes Hx Anemia: Yes Hx Cancer: Yes (throat, lung) Hx Chemotherapy: Yes Hx Radiation Therapy: Yes Hx Blood Transfusions: Yes Hx Blood Transfusion Reaction: No Family Medical History Any Significant Family History?: Yes Hx Alcohol Use: Father, Brother/Sister Hx Cancer: Father, Mother, Brother/Sister Hx Depression: Mother Hx Diabetes: Father Hx Resp Disorders: Brother/Sister Physical Exam - General General Appearance: Alert, Oriented x3, Cooperative, Mild distress - Head Head exam: Normal inspection - Eye Eye exam: Normal appearance, PERRL, EOMI Pupils: Normal accommodation - ENT ENT exam: Normal exam, Mucous membranes moist, Normal external ear exam, Normal orophraynx Ear exam: Normal external inspection. negative: External canal tenderness Nasal Exam: Normal inspection. negative: Discharge, Sinus tenderness Mouth exam: Normal external inspection, Tongue normal Teeth exam: Normal inspection. negative: Dental caries Throat exam: Normal inspection. negative: Tonsillar erythema, Tonsillar exudate - Neck Neck exam: Normal inspection, Full ROM. negative: Tenderness - Respiratory Respiratory exam: Decreased breath sounds, Wheezes. negative: Respiratory distress - Cardiovascular Cardiovascular Exam: Regular rate, Normal rhythm, Normal heart sounds - GI/Abdominal GI/Abdominal exam: Soft, Normal bowel sounds. negative: Tenderness - Rectal Rectal exam: Deferred - exam: Deferred - Extremities Extremities exam: Normal inspection, Full ROM, Normal capillary refill. negative: Tenderness - Back Back exam: Reports: Normal inspection, Full ROM. Denies: Muscle spasm, Rash noted, Tenderness - Neurological Neurological exam: Alert, CN II-XII intact, Normal gait, Oriented X3 - Psychiatric Psychiatric exam: Normal affect, Normal mood - Skin Skin exam: Dry, Intact, Normal color, Warm Course Vital Signs 02/12/18 02/12/18 14:41 15:45 Temperature 98.6 F Pulse Rate 89 88 Respiratory 20 18 Rate Blood Pressure 107/73 Pulse Ox 95 97 Medical Decision Making - Lab Data Result diagrams: 02/12/18 15:40 02/12/18 15:40 Lab Results 02/12/18 02/12/18 02/12/18 Range/Units 15:40 15:40 15:40 WBC 14.0 H (4.2-12.2) K/uL RBC 4.53 (4.40-5.70) M/uL Hgb 13.1 L (14.0-18.0) gm/dl Hct 41.5 L (42.0-52.0) % MCV 91.6 (81-97) fl MCH 28.9 (27-33) pg MCHC 31.6 L (32-36) g/dl RDW 15.6 H (11.5-14.5) % Plt Count 427 H (130-400) K/uL MPV 9.2 (7.4-10.4) fl Gran % 77.8 (47-80) % Lymphocytes % 11.2 L (16-45) % Monocytes % 9.4 H (0-9) % Eosinophils % 1.3 (0-6) % Basophils % 0.3 (0-6) % D-Dimer 0.73 H (0-0.59) mg/L FEU Sodium 140 (136-145) mmol/L Potassium 3.9 (3.4-4.5) mmol/L Chloride 99 (98-107) mmol/L Carbon Dioxide 31.0 H (22-29) mmol/L Anion Gap 10.0 (7-16) BUN 14 (6-20) mg/dL Creatinine 0.7 (0.7-1.2) mg/dL Estimated GFR > 60 mL/min Random Glucose 77 (74-109) mg/dL Calcium 9.3 (8.6-10.0) mg/dL NT-Pro-B Natriuret Pep 58.08 (<125) pg/mL Disposition Disposition: Admit Clinical Impression: COPD with acute exacerbation, Pulmonary embolus, right Decision to Admit: Admit from ER Decision to Admit Date: 02/12/18 Decision to Admit Time: 19:53 Quality - Quality Measures Quality Measures: N/A - Adult Bronchitis ICD10 Codes Entered: No - Blood Pressure Screening Does Patient Have Any of the Following: No Blood Pressure Classification: Normal BP Reading Systolic Measurement: 107 Diastolic Measurement: 73 Screening for High Blood Pressure: < Normal BP, F/U Not Required > [G8783]
[2018-02-12] MEDS ORDERED: TRAZODONE HCL 50 MG PO SCH (22:00)
[2018-02-12] MEDS ORDERED: APIXABAN 5MG TABLET PO SCH (22:00)
[2018-02-12] MEDS: ALBUTEROL SULFATE (0.083%) 2.5 MG/3 ML NEB INH PRN (22:04)
[2018-02-12] MEDS: GABAPENTIN 100 MG CAPSULE PO SCH (23:20)
[2018-02-12] MEDS: TRAZODONE 50 MG TABLET PO SCH (23:21)
[2018-02-12] MEDS: HEPARIN SODIUM/D5W 25,000 UNITS/500 ML BAG IV SCH (23:24)
[2018-02-12] MEDS ORDERED: HEPARIN SODIUM 1000 UNIT/1 ML 10ML VIAL IVP ONE (23:42)
[2018-02-13] MEDS: METHYLPREDNISOLONE PF 125MG/VIAL IVP SCH ×4 (00:49→16:00)
[2018-02-13] MEDS ORDERED: HEPARIN SODIUM 1000 UNIT/1 ML 10ML VIAL IVP ONE (06:51)
[2018-02-13] MEDS: PANTOPRAZOLE SODIUM 40 MG TABLET PO SCH (07:02)
[2018-02-13] MEDS: LEVOTHYROXINE SODIUM 75 MCG TABLET PO SCH (07:02)
--- NOTE | 2018-02-13 07:17 | RADIOLOGY REPORT ---
EXAM: CHEST, TWO VIEWS HISTORY: SHORTNESS OF BREATH, DIFFICULTY IN BREATHING TODAY. HISTORY OF COPD AND LUNG CANCER WITH RIGHT LOWER LUNG REMOVED. TECHNIQUE: PA and lateral views of the chest were obtained. Comparison: Two view chest 01/12/18. FINDINGS: There is probably post thoracotomy change involving the right fifth rib as previously noted and there is some volume loss on the right as before consistent with history of prior lower lobectomy. Chronic blunting of the right lateral costophrenic angle presumably by pleural thickening although could be related to pleural fluid. When comparison is made with the prior study , underlying hyperinflation consistent with COPD again evident, but no definite acute infiltrate seen. No pneumothorax evident. Stable heart size, nonenlarged. IMPRESSION: 1. POSTOP RIGHT LOWER LOBECTOMY BY HISTORY WITH ASSOCIATED VOLUME LOSS ON THE RIGHT BEFORE. 2. CHRONIC BLUNTING OF THE RIGHT LATERAL COSTOPHRENIC ANGLE PRESUMABLY BY PLEURAL THICKENING. 3. UNDERLYING COPD BEFORE. NO ACUTE INFILTRATE IDENTIFIED. JOB NUMBER: [id number] MTDD
--- NOTE | 2018-02-13 07:27 | CT ANGIOGRAM REPORT ---
EXAM: CTA OF THE CHEST WITH CONTRAST WITH POST PROCESSING HISTORY: SHORTNESS OF BREATH AND ELEVATED D-DIMER, POSSIBLE PE. TECHNIQUE: CTA of the chest was performed following the intravenous administration of 94 ml of Omnipaque 350 as the IV contrast. Post processing on an independent workstation was performed with multiple 3D MIP series obtained. Comparison: Prior chest CT 06/02/17. Two view chest x-ray earlier today on 02/12. FINDINGS: There is volume loss on the right as before. There does appear to be some soft tissue density along the posteromedial wall of the proximal right lower lobe pulmonary artery probably representing some nonocclusive and possibly nonacute thrombus in this location. Elsewhere no PE identified in the pulmonary arterial tree. Unfortunately the prior chest CT of 06/02/17 was performed without IV contrast and so the status of the pulmonary artery cannot be evaluated related to any luminal thrombus at that time, however, when compared with the still earlier chest CT of 04/05/15, this peripheral thrombus along the right lower lobe pulmonary artery was not evident at that time. 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 There is peripheral plaque involving the proximal left subclavian artery resulting in moderate stenosis a short distance beyond the origin. No thoracic aortic aneurysm or dissection is seen. The heart is not enlarged. There is an enhancing lesion far posteriorly in the right lobe of the liver measuring about 1.8 cm in size. This was present on a prior abdomen CT of as well and is likely a cavernous hemangioma as previously reported. Underlying emphysema again noted, quite extensive as before. Small amount of new streaky atelectasis or infiltrate in the right base compared with the chest CT of 06/02/17. IMPRESSION: 1. APPEARANCE LIKELY REPRESENTING NONOCCLUSIVE AND POSSIBLY NONACUTE ISOLATED THROMBUS IN THE PROXIMAL RIGHT LOWER LOBE PULMONARY ARTERY. ELSEWHERE NO PE IDENTIFIED. 2. ADVANCED UNDERLYING COPD BEFORE. 3. SOME MODERATE STENOSIS IN THE PROXIMAL LEFT SUBCLAVIAN ARTERY. 4. SOME MILD STREAKY ATELECTASIS OR INFILTRATE IN THE RIGHT BASE. 5. PROBABLE CAVERNOUS HEMANGIOMA POSTERIORLY RIGHT LOBE OF THE LIVER BEFORE. JOB NUMBER: [id number] MTDD
[2018-02-13] MEDS ORDERED: WARFARIN 5 MG TAB PO ONE (07:45)
[2018-02-13 08:00] LABS: INR 0.9; PROTHROMBIN TIME (PATIENT) 10.1 SECONDS (9.5-12.1)
[2018-02-13] MEDS: ALBUTEROL SULFATE (0.083%) 2.5 MG/3 ML NEB INH PRN (09:01)
[2018-02-13] MEDS: GABAPENTIN 100 MG CAPSULE PO SCH ×3 (09:14→22:05)
[2018-02-13] MEDS: BUPROPION HCL 150 MG TAB.SR.12H PO SCH (09:14)
[2018-02-13] MEDS ORDERED: ACETYLCYSTEINE 600 MG PO SCH (10:00)
[2018-02-13] MEDS ORDERED: MONTELUKAST SODIUM 10MG TABLET PO SCH (10:00)
[2018-02-13] MEDS ORDERED: ANORO (UMECLIDINIUM & VILANTEROL) 62.5MCG/25MCG INH INH SCH ×2 (10:00)
--- NOTE | 2018-02-13 10:11 | History and Physical Report ---
DATE OF ADMISSION: 02/12/2018 CHIEF COMPLAINT: Short of breath for the last 3 or 4 days. /HISTORY OF PRESENT ILLNESS: This 58-year-old male, who has a longstanding history of COPD, on home oxygen at 2 liters per minute, came to the emergency department for evaluation being short of breath slightly more than usual in the last 3 or 4 days. He also was recently started on Neurontin by Jelly through Dr. Bob's office for right-sided pain, which he thinks he might have injured while going through pulmonary therapy at [facility]. To get stronger he is doing weightlifting, but Neurontin seems to be helping. The patient states he has a cough with not much production and a runny nose. 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 He was evaluated in the emergency department by Dr. Wilkinson. The D-dimer was slightly elevated at 0.73, and a CTA was performed, which showed a nonocclusive, possibly nonacute, thrombus in the proximal right lower lobe, pulmonary artery; otherwise, no PE seen. There was an incidental liver spot, 1.8 cm, which was present on the previous CT. He also has COPD. He had some right base streaky atelectasis. Because of this finding, he was put in the hospital for treatment of PE. It was initially was thought to go with Eliquis; however, because of his insurance it would be very difficult to get authorization for Eliquis. We switched him over to heparin and Coumadin. PAST MEDICAL HISTORY: He has COPD with home oxygen at 2 liters per minute, which started about a year ago. He had a lung resection of the right lung because of cancer. 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 He had a colon perforation, May 2015. He had a history of metastatic lung cancer. 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 He has tobacco use disorder. He stopped smoking approximately 9 months ago. He also has hypothyroidism and anxiety. PAST SURGICAL HISTORY: Thyroid surgery, lung surgery, colon surgery, small bowel surgery for perforation of the colon in 2016. CURRENT MEDICATIONS: On admission: 1. Anoro Ellipta 1 inhalation a day. 2. Trazodone 50 mg each night. 3. Protonix 40 mg daily. 4. Singulair 10 mg daily. 5. Meloxicam, which will have to be stopped because he is going onto Coumadin. 6. Levothyroxine 75 mcg a day. 7. Gabapentin 100 mg t.i.d. 8. Vitamin D3 1000 units daily. 9. Wellbutrin XL 300 mg daily. 10. Pulmicort 0.5 mg inhalation every 12 hours. 11. Vitamin C 1000 units daily. 12. Ventolin 2 puffs every 4 hours p.r.n. 13. Albuterol nebulizer every 4 hours p.r.n. ALLERGIES: No known allergies. SOCIAL HISTORY: No alcohol or drug use. FAMILY HISTORY: Alcoholism with the father, brother, sister; cancer with the father, mother, brother, and sister; depression with the mother; diabetes with the father; respiratory problems in brother and sister. SYSTEMS REVIEW: HEENT: He has a little bit of a runny nose, congestion, and a cough, short of breath for the last 3 or 4 days. Cardiovascular: No chest pain, palpation, or arrhythmia. Respiratory: Short of breath, but he is chronically short of breath. He knows when he walks without oxygen at home he drops down to 88% when he is walking around the kitchen and living room. Gastrointestinal: No nausea, vomiting, diarrhea, black stools, or blood stools. Genitourinary: No dysuria, hematuria, frequency, or burning on urination. Musculoskeletal: No joint or bone abnormalities. Neurologic: No CVA paralysis or paresthesias. Endocrine: No diabetes or thyroid disease. Integument: No rash, ulcer, change in moles, or yellow skin. PHYSICAL EXAMINATION: VITAL SIGNS: Height: 5 feet 7 inches. Weight: 134 pounds. Temperature: 97.5. Pulse: 66. Blood Pressure: 96/64. Respiratory Rate: 18. Pulse Oximetry: 96% on 2 liters. HEENT: Pupils equal, round, and reactive to light and accommodation. Extraocular muscles intact. Throat is clear. Nose is clear. Tympanic membranes are ibarra. Neck is supple. No jugular venous distention. No hepatojugular reflux. No carotid bruit. Thyroid is smooth. LUNGS: Decreased breath sounds bilaterally. HEART: Regular rate and rhythm without murmur, clicks, rubs, or gallops. ABDOMEN: Soft, nontender. No hepatosplenomegaly. No masses. No tenderness. Bowel sounds active. EXTREMITIES: No pitting edema. No cyanosis. No clubbing. Full range of motion. Peripheral pulses good. There is no pain to palpation of the legs. BREASTS: No palpable mass. No discharge. No skin change. Nipples normal. No lymph nodes palpable. RECTAL/GENITALIA: Deferred. NEUROLOGIC: Cranial nerves 2 through 12 intact. No gross defects. Sensation normal. Strength normal. Deep tendon reflexes equal bilaterally. Babinski is negative. MENTAL STATUS: Alert and oriented x3. IMPRESSION: 1. Acute exacerbation of COPD. 2. Pulmonary embolism, nonocclusive, nonthrombotic, nonacute, in the right lower lobe and pulmonary artery. See the CTA report. 3. Hypoxia, on home oxygen 2 liters per minute. 4. History of lung cancer. 5. History of skin cancer. 6. History of tobacco use, but he stopped about 9 months ago. 7. History of multiple abdominal surgeries and diverticulitis. 8. History of adenomatous colon polyps removed, and perforation of his colon in July 2016. PLAN: IV Solu-Medrol, switch over to oral prednisone, heparin IV, and adding Coumadin. He will most likely need 3 months of Coumadin. We will start oral Keflex, and a flu swab. Continue home oxygen, breathing treatments, and his home medications. JUDYD
--- NOTE | 2018-02-13 13:33 | US VENOUS DOPPLER REPORT ---
EXAM: EMERGENCY BILATERAL VENOUS DOPPLER ULTRASOUND OF THE LOWER EXTREMITIES HISTORY: RECURRENT PE. TECHNIQUE: Emergency venous Doppler ultrasound of both lower extremities was performed. Color flow and spectral analysis Doppler was supplemented by flow augmentation and compression maneuvers in the thigh and popliteal regions bilaterally. Comparison: No prior venous Doppler ultrasound on either side with which to compare. FINDINGS: The venous Doppler ultrasound of the lower extremities appears negative bilaterally. Flow is seen bilaterally in the venous anatomy throughout the lower extremities with no evidence of thrombus. Within both thighs and popliteal regions there was flow augmentation and compressibility evident as well. IMPRESSION: NEGATIVE VENOUS DOPPLER ULTRASOUND OF THE LOWER EXTREMITIES BILATERALLY WITH NO DVT EVIDENT ON EITHER SIDE. JOB NUMBER: [id number] MTDD
[2018-02-13] MEDS: BUDESONIDE 0.5 MG/2 ML INH SCH ×2 (14:47→21:04)
[2018-02-13] MEDS: ANORO (UMECLIDINIUM & VILANTEROL) 62.5MCG/25MCG INH IH SCH (14:48)
[2018-02-13] MEDS: HEPARIN SODIUM/D5W 25,000 UNITS/500 ML BAG IV SCH (20:42)
[2018-02-13] MEDS: MONTELUKAST SODIUM 10MG TABLET PO SCH (22:05)
[2018-02-13] MEDS: TRAZODONE 50 MG TABLET PO SCH (22:06)
[2018-02-14] MEDS: METHYLPREDNISOLONE PF 125MG/VIAL IVP SCH ×2 (00:58→07:04)
[2018-02-14] MEDS: BUDESONIDE 0.5 MG/2 ML INH SCH ×2 (06:02→18:28)
[2018-02-14] MEDS: ANORO (UMECLIDINIUM & VILANTEROL) 62.5MCG/25MCG INH IH SCH (06:03)
[2018-02-14] MEDS: LEVOTHYROXINE SODIUM 75 MCG TABLET PO SCH (06:57)
[2018-02-14] MEDS: PANTOPRAZOLE SODIUM 40 MG TABLET PO SCH (06:57)
[2018-02-14 07:14] LABS: INR 2.1; PARTIAL THROMBOPLASTIN TIME 95.9 SECONDS (24.5-39.1); PROTHROMBIN TIME (PATIENT) 22.3 SECONDS (9.5-12.1)
[2018-02-14] MEDS ORDERED: WARFARIN 2.5 MG TAB PO ONE (08:00)
[2018-02-14] MEDS: GABAPENTIN 100 MG CAPSULE PO SCH ×3 (09:12→22:06)
[2018-02-14] MEDS: BUPROPION HCL 150 MG TAB.SR.12H PO SCH (09:12)
[2018-02-14] MEDS: PREDNISONE 20 MG TAB PO SCH ×2 (09:12→22:06)
[2018-02-14] MEDS: ALBUTEROL SULFATE (0.083%) 2.5 MG/3 ML NEB INH PRN (09:35)
[2018-02-14] MEDS: HEPARIN SODIUM/D5W 25,000 UNITS/500 ML BAG IV SCH (17:48)
[2018-02-14] MEDS: MONTELUKAST SODIUM 10MG TABLET PO SCH (22:06)
[2018-02-14] MEDS: TRAZODONE 50 MG TABLET PO SCH (22:06)
[2018-02-15] MEDS: ANORO (UMECLIDINIUM & VILANTEROL) 62.5MCG/25MCG INH IH SCH (06:03)
[2018-02-15] MEDS: BUDESONIDE 0.5 MG/2 ML INH SCH ×2 (06:03→18:01)
[2018-02-15] MEDS: ALBUTEROL SULFATE (0.083%) 2.5 MG/3 ML NEB INH PRN ×2 (06:15→10:40)
[2018-02-15] MEDS: LEVOTHYROXINE SODIUM 75 MCG TABLET PO SCH (06:45)
[2018-02-15] MEDS: PANTOPRAZOLE SODIUM 40 MG TABLET PO SCH (06:45)
[2018-02-15 07:23] LABS: INR 4.1; PROTHROMBIN TIME (PATIENT) 45.3 SECONDS (9.5-12.1)
[2018-02-15] MEDS: PREDNISONE 20 MG TAB PO SCH ×2 (09:26→22:25)
[2018-02-15] MEDS: BUPROPION HCL 150 MG TAB.SR.12H PO SCH (09:26)
[2018-02-15] MEDS: GABAPENTIN 100 MG CAPSULE PO SCH ×3 (09:26→22:25)
[2018-02-15] MEDS ORDERED: LORAZEPAM 0.5 MG TABLET PO PRN (09:43)
[2018-02-15] MEDS ORDERED: METHYLPREDNISOLONE SOD 40MG/VIAL IVP ONE (09:43)
[2018-02-15] MEDS: CEFTRIAXONE 1GM/50ML BAG 1 GM/50 ML BAG IVPB SCH ×2 (10:07→22:26)
[2018-02-15] MEDS: ALBUTEROL SULFATE (0.083%) 2.5 MG/3 ML NEB INH SCH ×4 (14:32→22:25)
[2018-02-15] MEDS: TRAZODONE 50 MG TABLET PO SCH (22:25)
[2018-02-15] MEDS: MONTELUKAST SODIUM 10MG TABLET PO SCH (22:25)
[2018-02-16] MEDS: ANORO (UMECLIDINIUM & VILANTEROL) 62.5MCG/25MCG INH IH SCH (06:12)
[2018-02-16] MEDS: LEVOTHYROXINE SODIUM 75 MCG TABLET PO SCH (06:13)
[2018-02-16] MEDS: PANTOPRAZOLE SODIUM 40 MG TABLET PO SCH (06:13)
[2018-02-16] MEDS: BUDESONIDE 0.5 MG/2 ML INH SCH (06:14)
[2018-02-16] MEDS: ALBUTEROL SULFATE (0.083%) 2.5 MG/3 ML NEB INH SCH ×3 (06:16→14:14)
[2018-02-16 06:52] LABS: INR 2.3; PROTHROMBIN TIME (PATIENT) 25.4 SECONDS (9.5-12.1)
[2018-02-16] MEDS: CEFTRIAXONE 1GM/50ML BAG 1 GM/50 ML BAG IVPB SCH (09:52)
[2018-02-16] MEDS: BUPROPION HCL 150 MG TAB.SR.12H PO SCH (09:53)
[2018-02-16] MEDS: PREDNISONE 20 MG TAB PO SCH (09:53)
[2018-02-16] MEDS: GABAPENTIN 100 MG CAPSULE PO SCH (09:54)
--- NOTE | 2018-02-16 12:34 | Discharge Note ---
VTE H&P Assessment - Risk for VTE Risk for VTE: Yes Risk Level: High Risk Assessment Date: 02/13/18 Risk Assessment Time: 09:00 VTE Orders Placed or Will Be Placed: Yes Discharge Medications - Discharge Medications Prescriptions: Warfarin Sodium [Coumadin] 1 mg PO QHS #30 tablet Cephalexin [Keflex] 500 mg PO QID #40 cap Prednisone [Prednisone 20Mg] 20 mg PO BID #10 tab Home Medications: Ambulatory Orders Trazodone HCl 50 mg PO QHS #0 02/24/16 [Last Taken 01/12/18] Bupropion HCl [Wellbutrin Xl] 300 mg PO DAILY 09/26/17 [Last Taken 01/12/18] Levothyroxine Sodium [Synthroid] 75 mcg PO DAILYTHY tablet 09/27/17 [Last Taken 01/12/18] Pantoprazole Sodium [Protonix] 40 mg PO DAILYAC #0 tablet. 09/27/17 [Last Taken 01/12/18] Albuterol Sulfate 0.083% [Neb] 2.5 mg INH RESP.Q1H PRN nebulization solution [Last Taken 01/12/18] Albuterol Sulfate [Ventolin Hfa] 1 - 2 puff IH .EVERY 4-6 HOURS PRN 12/14/17 [ Last Taken 01/12/18] Ascorbic Acid [Vitamin C] 1,000 mg PO DAILY 12/14/17 [Last Taken 01/12/18] Cholecalciferol (Vitamin D3) [Vitamin D3] 1,000 unit PO DAILY 12/14/17 [Last Taken 01/12/18] Budesonide [Pulmicort] 0.5 mg IH Q12H 01/12/18 [Last Taken 01/11/18 20:00] Umeclidinium Brm/Vilanterol Tr [Anoro Ellipta 62.5-25 Mcg INH] 1 inh INH DAILY 01/12/18 [Last Taken 01/12/18 08:00] Montelukast Sodium 10 mg PO DAILY 02/12/18 [Last Taken Unknown] Cephalexin [Keflex] 500 mg PO QID #40 cap 02/16/18 [Last Taken Unknown] Prednisone [Prednisone 20Mg] 20 mg PO BID #10 tab 02/16/18 [Last Taken Unknown] Warfarin Sodium [Coumadin] 1 mg PO QHS #30 tablet 02/16/18 [Last Taken Unknown] Discharge Note - Date Date of Discharge Note: 02/16/18 Forms: Patient Portal Access
--- NOTE | 2018-02-16 12:50 | Discharge Note ---
VTE H&P Assessment - Risk for VTE Risk for VTE: Yes Risk Level: High Risk Assessment Date: 02/13/18 Risk Assessment Time: 09:00 VTE Orders Placed or Will Be Placed: Yes Discharge Medications - Discharge Medications Prescriptions: Warfarin Sodium [Coumadin] 1 mg PO QHS #30 tablet Cephalexin [Keflex] 500 mg PO QID #40 cap Prednisone [Prednisone 20Mg] 20 mg PO BID #10 tab Home Medications: Ambulatory Orders Trazodone HCl 50 mg PO QHS #0 02/24/16 [Last Taken 01/12/18] Bupropion HCl [Wellbutrin Xl] 300 mg PO DAILY 09/26/17 [Last Taken 01/12/18] Levothyroxine Sodium [Synthroid] 75 mcg PO DAILYTHY tablet 09/27/17 [Last Taken 01/12/18] Pantoprazole Sodium [Protonix] 40 mg PO DAILYAC #0 tablet. 09/27/17 [Last Taken 01/12/18] Albuterol Sulfate 0.083% [Neb] 2.5 mg INH RESP.Q1H PRN nebulization solution [Last Taken 01/12/18] Albuterol Sulfate [Ventolin Hfa] 1 - 2 puff IH .EVERY 4-6 HOURS PRN 12/14/17 [ Last Taken 01/12/18] Ascorbic Acid [Vitamin C] 1,000 mg PO DAILY 12/14/17 [Last Taken 01/12/18] Cholecalciferol (Vitamin D3) [Vitamin D3] 1,000 unit PO DAILY 12/14/17 [Last Taken 01/12/18] Budesonide [Pulmicort] 0.5 mg IH Q12H 01/12/18 [Last Taken 01/11/18 20:00] Umeclidinium Brm/Vilanterol Tr [Anoro Ellipta 62.5-25 Mcg INH] 1 inh INH DAILY 01/12/18 [Last Taken 01/12/18 08:00] Montelukast Sodium 10 mg PO DAILY 02/12/18 [Last Taken Unknown] Cephalexin [Keflex] 500 mg PO QID #40 cap 02/16/18 [Last Taken Unknown] Prednisone [Prednisone 20Mg] 20 mg PO BID #10 tab 02/16/18 [Last Taken Unknown] Warfarin Sodium [Coumadin] 1 mg PO QHS #30 tablet 02/16/18 [Last Taken Unknown] Discharge Note - Date Date of Discharge Note: 02/16/18 Disposition: Home, Self-Care Condition: (1) Good Additional Instructions: follow up with Dr. Bob on tuesday outpatient PT/INR on tuesdayFebruary 20, and than weekly please give him a lab order for this blood work increase oxygen to 3 liters per minute stop gabapentin(neurontin) keflex 500 mg four times a day for 10 days coumadin 1mg at night and will adjust through the office prednisone 20 mg twice a day for 5 days Prescriptions: Warfarin Sodium [Coumadin] 1 mg PO QHS #30 tablet Cephalexin [Keflex] 500 mg PO QID #40 cap Prednisone [Prednisone 20Mg] 20 mg PO BID #10 tab Referrals: Jim Bob M.D., F.A.C.P. [Primary Care Provider] - Forms: Patient Portal Access
--- NOTE | 2018-02-17 12:31 | Discharge Summary ---
DATE: 02/16/2018 DISCHARGE DIAGNOSES: 1. Acute pulmonary embolism, right lower lobe. 2. Acute exacerbation of chronic obstructive pulmonary disease. 3. Hypoxia on home oxygen. We will send him home at 3L/min nasal cannula. 4. History of lung cancer. 5. History of skin cancer. 6. History of tobacco use. Stopped smoking about 9 months ago. ATTENDING PHYSICIAN: Nikita Bush DO REASON FOR HOSPITALIZATION: Short of breath for the last 3-4 days prior to coming to the ER. This 58-year-old male presented with a long-standing history of COPD on home oxygen at 2L/min nasal cannula. He came to the emergency department for evaluation of dyspnea. D-dimer was drawn which showed slightly elevated at 0.73. CTA was performed which showed a thrombus in the right lower lobe. She also was complaining of some right-sided chest wall pain and approximately a week ago was started on Neurontin by Jelly. He states that he did have a cough and it was a little more productive. He had a runny nose also. His control tower operator is Dr. Gabriel. He was evaluated in the emergency department by Dr. Wilkinson, admitted to the hospital for pulmonary embolism treatment and COPD exacerbation. Initially he was given 1 dose of Eliquis but switched him to heparin and Coumadin and on discharge he is going home with Coumadin 1 mg at night. SIGNIFICANT FINDINGS: WBC 14,000, hemoglobin 13.3. PT/INR when he was discharged on 02/16/2018 was 2.3. His potassium ID 3.9, BUN 14, creatinine 0.7. Brain natriuretic peptide was normal at 58. He had a chest x-ray which showed no acute findings. The chest x-ray also showed postop right lower lobe lobectomy with volume loss, also chronic blunting of the right lateral costophrenic angle presumably by pleural thickening, underlying COPD. He had venous Dopplers of both legs which were negative for DVT. His CTA had a nonocclusive possible nonacute thrombus of the proximal right lower lobe pulmonary artery, advanced underlying COPD, some moderate stenosis in the proximal left subclavian artery and some mild streaky atelectasis or infiltrate at right base, probably cavernous hemangioma posterior right lobe of the liver. THERAPY PROVIDED: Initially given 1 dose of Eliquis and switched over to heparin and Coumadin. His Coumadin did go up with 10 mg of Coumadin initially. The first day it went up to 2.3. He was given 2.5 mg the second day and his PT/INR went to 4.1 and on discharge without giving any Coumadin it was 2.3. We will send him home with a conservative dose of Coumadin at 1 mg at bedtime and see what his outpatient PT/INR is Tuesday. HOSPITAL COURSE: Gradually improved. He was short of breath at one point during the hospitalization, started on Rocephin 1 g q.12 h., switched over to Keflex 500 mg b.i.d. for an exacerbation of COPD. He was also given IV Solu-Medrol 125 and 60 q.8 h. and then switched over to prednisone 20 mg b.i.d. He is requiring more oxygen than when he came in. He is requiring 3L/min nasal cannula to keep his pulse ox above 90%. CONDITION ON DISCHARGE: Much improved. DISCHARGE INSTRUCTIONS: Follow up with Dr. Bob on Tuesday. Stop the Neurontin. Coumadin 1 mg at h.s. Keflex 500 mg 4 times a day for 10 days. Prednisone 20 mg b.i.d. for 5 days. Oxygen will increase up to 3L/min. Further adjustments of his Coumadin depending on the outpatient PT/INR which will be drawn on Tuesday and then weekly thereafter. CC: VANESSA BOB MD, FACP [facility]
== END 2018-02-16 15:10 | disposition home or self-care (01) | DRG 190 ==
LOC: ER 14:06 → MEDSURG 20:44 → OBSVTOIN 20:44
PROVIDERS: ADMIT Internal Medicine; ATTEND Emergency Medicine
DX: J44.1 Chronic obstructive pulmonary disease with (acute) exacerbation (principal); I26.99 Other pulmonary embolism without acute cor pulmonale; E03.9 Hypothyroidism, unspecified; D64.9 Anemia, unspecified; F41.9 Anxiety disorder, unspecified; Z85.118 Personal history of other malignant neoplasm of bronchus and lung; Z85.818 Personal history of malignant neoplasm of other sites of lip, oral cavity, and pharynx; Z87.891 Personal history of nicotine dependence
CPT/HCPCS: 71046; 71275; 80048; 83880; 85025; 85379; 85610; 85730; 87070; 93970; 94640; 94760; 94761; 96374; 99285; J0696; J2920; J2930; J3490; J7512; J7613

== ENCOUNTER 2018-04-30 17:15 | Emergency (ER) | payer MEDICAID ==
--- NOTE | 2018-04-30 17:49 | Emergency Department Record ---
History of Present Illness - General Chief complaint: Male Urogenital Problem Stated complaint: BLOOD IN URINE Time Seen by Provider: 04/30/18 17:35 Source: Patient, RN notes reviewed Mode of Arrival: Ambulatory - History of Present Illness Initial comments: red urine and he was switched from coumadin to xarelto and PE in lungs discovered february 19 2018., neck cancer and lung cancer 2015 . Patient noticed blood in his urine today, No abdominal pain and no back pain Onset/Timin -: Minutes(s) Radiation: None Consistency: Intermittent Improves with: None Worsens with: None Reports: Denies other symptoms, Blood in urine - Related Data Previous Rx's Medication Instructions Recorded Trazodone HCl 50 mg PO QHS #0 02/24/16 Levothyroxine Sodium [Synthroid] 75 mcg PO DAILYTHY tablet 09/27/17 Albuterol Sulfate 0.083% [Neb] 2.5 mg INH RESP.Q1H PRN 11/15/17 nebulization solution Allergies Allergy/AdvReac Type Severity Reaction Status Date / Time No Known Drug Allergies Allergy Verified 04/30/18 17:21 Travel Screening - Travel/Exposure Within Last 30 Days Have you traveled within the last 30 days?: No - Travel/Exposure Within Last Year Have you traveled outside the [place] in the last year?: No - Additonal Travel Details Have you been exposed to anyone with a communicable illness?: No - Travel Symptoms Symptom Screening: None Review of Systems Reviewed: No additional complaints except as noted below Constitutional: Reports: As per HPI. Denies: Chills, Fever, Malaise, Night sweats, Weakness, Weight change Eyes: Reports: As per HPI. Denies: Eye discharge, Eye pain, Photophobia, Vision change ENT: Reports: As per HPI. Denies: Congestion, Dental pain, Ear pain, Epistaxis , Hearing loss, Throat pain Respiratory: Reports: As per HPI. Denies: Cough, Dyspnea, Hemoptysis, Stridor, Wheezes Cardiovascular: Reports: As per HPI. Denies: Arrhythmia, Chest pain, Dyspnea on exertion, Edema, Murmurs, Orthopnea, Palpitations, Paroxysmal nocturnal dyspnea, Rheumatic Fever, Syncope Endocrine: Reports: As per HPI. Denies: Fatigue, Heat or cold intolerance, Polydipsia, Polyuria Gastrointestinal: Reports: As per HPI. Denies: Abdominal pain, Constipation, Diarrhea, Hematemesis, Hematochezia, Melena, Nausea, Vomiting Genitourinary: Reports: As per HPI. Denies: Dysuria, Frequency, Hematuria, Incontinence, Retention, Testicular pain, Testicular mass, Urgency Musculoskeletal: Reports: As per HPI. Denies: Arthralgia, Back pain, Gout, Joint swelling, Myalgia, Neck pain Skin: Reports: As per HPI. Denies: Bruising, Change in color, Change in hair/ nails, Lesions, Pruritus, Rash Neurological: Reports: As per HPI. Denies: Abnormal gait, Confusion, Headache, Numbness, Paresthesias, Seizure, Tingling, Tremors, Vertigo, Weakness Psychiatric: Reports: As per HPI. Denies: Anxiety, Auditory hallucinations, Depression, Homicidal thoughts, Suicidal thoughts, Visual hallucinations Hematological/Lymphatic: Reports: As per HPI. Denies: Anemia, Blood Clots, Easy bleeding, Easy bruising, Swollen glands Past Medical History - SOCIAL HISTORY Smoking Status: Former smoker Alcohol Use: None Drug Use Detail:: Marijuana - RESPIRATORY Hx Respiratory Disorders: Yes Hx Asthma: No Hx Bronchitis: No Hx COPD: Yes Hx Dyspnea: Yes Hx Pneumonia: Yes Hx Pulmonary Embolism: Yes Hx Sleep Apnea: Yes Hx Tuberculosis: No Hx of CPAP: Yes (is getting soon) Comment:: Home O2 - CARDIOVASCULAR Hx Cardio Disorders: No Hx Abnormal EKG: No Hx Cardiac Cath: No Hx Chest Pain: No Hx CHF: No Hx Deep Vein Thrombosis: No Hx Edema: No Hx Heart Attack: No Hx Hypertension: No Hx Hypotension: No Hx Irregular Heartbeat: No Hx Palpitations: No Hx Pacemaker/Defib: No Hx Vascular Disease: No Comment:: Tolerance is fair as long as wearing O2 - NEURO Hx Neuro Disorders: No Hx Brain Tumor: No Hx CVA: No Hx Dementia: No Hx Dizziness: No Hx Headaches: No Hx Neuropathy: Yes Hx Parkinson's Disease: No Hx Seizures: No Hx Speech Problem: No Hx TIA: No - GI Hx GI Disorders: Yes Hx Abdominal Pain: No Hx Celiac Disease: No Hx Crohn's Disease: No Hx Diverticulitis: Yes Hx GI Bleed: Yes Hx Reflux: Yes Hx Hepatitis/Jaundice: No Hx Hiatal Hernia: No Hx Irritable Bowel: No Hx Liver Disease: No Hx Nausea/Vomiting: No Hx Obstructive Bowel: Yes Hx Pancreatitis: No Hx Rectal Bleeding: No Hx Ulcer: No Hx Wt Loss/Wt Gain: No Hx of Polyps: Yes Comment:: colon perforation (d/t OIC) with resection, +C-diff - Hx Genitourinary Disorders: No Hx Bladder Problem: No Hx Dialysis: No Hx Kidney Stones: No Hx Prostate Problems: No Hx Renal Disease: No Hx UTI: No - ENDOCRINE Hx Endocrine Disorders: Yes Hx Diabetes: No Hx Thyroid Disease: Yes (hypo) - MUSCULOSKELETAL Hx Musculoskeletal Disorders: No Hx Arthritis: No Hx Back Injury: No Hx Fibromyalgia: No Hx Gout: No Hx Musculoskeletal Disease: No Hx Osteoporosis: No - PSYCH Hx Psych Problems: Yes Hx Anxiety: Yes Hx Behavior Problems: No Hx Depression: Yes Hx Emotional Abuse: No Hx Sexual Abuse: No Hx Suicide Attempt: No - HEMATOLOGY/ONCOLOGY Hx Hematology/Oncology Disorders: Yes Hx Anemia: Yes Hx Blood Disorders: No Hx Bruising: No Hx Cancer: Yes (throat, lung) Hx Chemotherapy: Yes Hx Radiation Therapy: Yes Hx Clotting Problems: No Hx Sickle Cell Disease: No Hx Unexplained Bleeding: No Hx Blood Transfusions: Yes Hx Blood Transfusion Reaction: No Family Medical History Any Significant Family History?: Yes Hx Alcohol Use: Father, Brother/Sister Hx Anxiety: Children Hx Cancer: Father, Mother, Brother/Sister Hx Depression: Mother, Brother/Sister Hx Liver Disease: Brother/Sister Hx Resp Disorders: Brother/Sister Physical Exam - General General Appearance: Alert, Oriented x3, Cooperative, No acute distress - Head Head exam: Normal inspection - Eye Eye exam: Normal appearance, PERRL Pupils: Normal accommodation - ENT ENT exam: Normal exam, Mucous membranes moist, Normal external ear exam, Normal orophraynx, TM's normal bilaterally Ear exam: Normal external inspection. negative: External canal tenderness Nasal Exam: Normal inspection. negative: Discharge, Sinus tenderness Mouth exam: Normal external inspection, Tongue normal Teeth exam: Normal inspection. negative: Dental caries Throat exam: Normal inspection. negative: Tonsillar erythema, Tonsillar exudate - Neck Neck exam: Normal inspection, Full ROM. negative: Tenderness - Respiratory Respiratory exam: Normal lung sounds bilaterally. negative: Respiratory distress - Cardiovascular Cardiovascular Exam: Regular rate, Normal rhythm, Normal heart sounds - GI/Abdominal GI/Abdominal exam: Soft, Normal bowel sounds. negative: Tenderness - Rectal Rectal exam: Deferred - exam: Deferred - Extremities Extremities exam: Normal inspection, Full ROM, Normal capillary refill. negative: Tenderness - Back Back exam: Reports: Normal inspection, Full ROM. Denies: Muscle spasm, Rash noted, Tenderness - Neurological Neurological exam: Alert, Normal gait, Oriented X3, Reflexes normal - Psychiatric Psychiatric exam: Normal affect, Normal mood - Skin Skin exam: Dry, Intact, Normal color, Warm Course Vital Signs 04/30/18 17:27 Temperature 98.7 F Pulse Rate 91 H Respiratory 16 Rate Blood Pressure 122/86 Pulse Ox 94 L Medical Decision Making - Lab Data Result diagrams: 04/30/18 18:10 04/30/18 18:10 Disposition Clinical Impression: Hypokalemia Hematuria Qualifiers: Hematuria type: gross Qualified Code(s): R31.0 - Gross hematuria Cancer of right lung Qualifiers: Lung location: unspecified part of lung Qualified Code(s): C34.91 - Malignant neoplasm of unspecified part of right bronchus or lung COPD (chronic obstructive pulmonary disease) Qualifiers: COPD type: emphysema Emphysema type: panlobular Qualified Code(s): J43.1 - Panlobular emphysema Disposition: Home, Self-Care Condition: (1) Good Instructions: Hematuria (ED) Additional Instructions: follow up with Dr. Bob or Lois in 3 days drink fluids stop xarelto for two days than restart xarelto Forms: Patient Portal Access Time of Disposition: 18:46 Quality - Quality Measures Quality Measures: N/A - Adult Bronchitis ICD10 Codes Entered: No - Blood Pressure Screening Does Patient Have Any of the Following: No Blood Pressure Classification: Pre-Hypertensive BP Reading Systolic Measurement: 122 Diastolic Measurement: 86 Screening for High Blood Pressure: < Pre-Hypertensive BP, F/U Documented > [ G8950] Pre-Hypertensive Follow-up Interventions: Referral to alternative/primary care provider.
[2018-04-30 18:18] LABS: BASO % 0.5 % (0-6); EOS % 4.1 % (0-6); GRAN % 70.5 % (47-80); HEMATOCRIT 36.6 % (42.0-52.0); HEMOGLOBIN 10.9 gm/dl (14.0-18.0); LYMPH % 16.3 % (16-45); MEAN CELL VOLUME 91.5 fl (81-97); MEAN CORPUSCULAR HGB CONC 29.8 g/dl (32-36); MEAN PLATELET VOLUME 9.8 fl (7.4-10.4); MONO % 8.6 % (0-9); PLATELET COUNT 480 K/uL (130-400); RED CELL DISTRIBUTION WIDTH 14.6 % (11.5-14.5); WHITE BLOOD COUNT W/O DIFF 8.7 K/uL (4.2-12.2)
[2018-04-30 18:19] LABS: MEAN CORPUSCULAR HEMOGLOBIN 27.2 pg (27-33)
[2018-04-30 18:31] LABS: BLOOD UREA NITROGEN 18 mg/dL (6-20)
[2018-04-30 18:32] LABS: EST GLOMERULAR FILTRATION RATE > 60 mL/min
[2018-04-30 18:34] LABS: GLUCOSE,RANDOM 125 mg/dL (74-109)
[2018-04-30] MEDS ORDERED: SPS 15 GM/60 ML PO ONE (18:37)
[2018-04-30 18:41] LABS: URINE APPEARANCE CLOUDY; URINE BILIRUBIN SMALL (NEGATIVE); URINE BLOOD LARGE (NEGATIVE); URINE COLOR BROWN; URINE GLUCOSE (UA) NEGATIVE (NEGATIVE); URINE KETONE NEGATIVE (NEGATIVE); URINE LEUKOCYTE ESTERASE NEGATIVE (NEGATIVE); URINE NITRITE NEGATIVE (NEGATIVE)
[2018-04-30 18:43] LABS: URINE EPITHELIAL CELLS NONE SEEN (FEW); URINE WBC NONE SEEN (0-2/hpf)
== END 2018-04-30 19:08 | disposition home or self-care (01) ==
LOC: ER 17:15
DX: E87.6 Hypokalemia (principal); R31.0 Gross hematuria; J43.1 Panlobular emphysema; C34.91 Malignant neoplasm of unspecified part of right bronchus or lung; Z79.01 Long term (current) use of anticoagulants; Z99.81 Dependence on supplemental oxygen; Z85.01 Personal history of malignant neoplasm of esophagus; Z87.891 Personal history of nicotine dependence
CPT/HCPCS: 80048; 81001; 85025; 85730; 99283; 99284

== ENCOUNTER 2018-09-22 13:49 | Inpatient (IN) | payer MEDICARE, MEDICAID ==
[2018-09-22] MEDS ORDERED: IPRATROPIUM/ALBUTEROL (0.5MG/3MG) NEB INH ONE (13:59)
--- NOTE | 2018-09-22 14:05 | Emergency Department Record ---
History of Present Illness - General Chief Complaint: Shortness of breath Stated Complaint: SUSANA Time Seen by Provider: 09/22/18 13:58 Source: Patient Mode of Arrival: Ambulatory Limitations: No limitations - History of Present Illness Initial Comments: 58 yo male presents with shortness of breath. He has a history of oxygen dependent COPD, PE (single area of right sided non occlusive possible thrombus) , cancer. He states he developed a coughing spell and couldn't seem to catch his breath. No fever. No productive sputum. No hemoptysis. He was taken of his Xarelto a week ago by his nuclear plant operator/oncologist. No calf pain or edema. MD Complaint: Cough, Shortness of breath Onset/Timin -: Week(s) Severity: Moderate Improves With: Nothing Worsens With: Nothing Known History Of: COPD Treatments Prior to Arrival: Bronchodilator - Related Data Home Oxygen Therapy: Yes Home Oxygen Amount: 2 Liters Previous Rx's Medication Instructions Recorded Trazodone HCl 50 mg PO QHS #0 02/24/16 Levothyroxine Sodium [Synthroid] 75 mcg PO DAILYTHY tablet 09/27/17 Albuterol Sulfate 0.083% [Neb] 2.5 mg INH RESP.Q1H PRN 11/15/17 nebulization solution Prednisone [Prednisone 20Mg] 20 mg PO BID #10 tab 09/22/18 Allergies Allergy/AdvReac Type Severity Reaction Status Date / Time No Known Drug Allergies Allergy Verified 09/22/18 14:00 Travel Screening - Travel/Exposure Within Last 30 Days Have you traveled within the last 30 days?: No Past Medical History - SOCIAL HISTORY Smoking Status: Former smoker Alcohol Use: None Drug Use: None - RESPIRATORY Hx Respiratory Disorders: Yes Hx Asthma: No Hx Bronchitis: No Hx COPD: Yes Hx Dyspnea: Yes Hx Pneumonia: Yes Hx Pulmonary Embolism: Yes Hx Sleep Apnea: Yes Hx Tuberculosis: No Hx of CPAP: Yes (is getting soon) Comment:: Home O2 - CARDIOVASCULAR Hx Cardio Disorders: No Hx Abnormal EKG: No Hx Cardiac Cath: No Hx Chest Pain: No Hx CHF: No Hx Deep Vein Thrombosis: No Hx Edema: No Hx Heart Attack: No Hx Hypertension: No Hx Hypotension: No Hx Irregular Heartbeat: No Hx Palpitations: No Hx Pacemaker/Defib: No Hx Vascular Disease: No Comment:: Tolerance is fair as long as wearing O2 - NEURO Hx Neuro Disorders: No Hx Brain Tumor: No Hx CVA: No Hx Dementia: No Hx Dizziness: No Hx Headaches: No Hx Neuropathy: Yes Hx Parkinson's Disease: No Hx Seizures: No Hx Speech Problem: No Hx TIA: No - GI Hx GI Disorders: Yes Hx Abdominal Pain: No Hx Celiac Disease: No Hx Crohn's Disease: No Hx Diverticulitis: Yes Hx GI Bleed: Yes Hx Reflux: Yes Hx Hepatitis/Jaundice: No Hx Hiatal Hernia: No Hx Irritable Bowel: No Hx Liver Disease: No Hx Nausea/Vomiting: No Hx Obstructive Bowel: Yes Hx Pancreatitis: No Hx Rectal Bleeding: No Hx Ulcer: No Hx Wt Loss/Wt Gain: No Hx of Polyps: Yes Comment:: colon perforation (d/t OIC) with resection, +C-diff - Hx Genitourinary Disorders: No Hx Bladder Problem: No Hx Dialysis: No Hx Kidney Stones: No Hx Prostate Problems: No Hx Renal Disease: No Hx UTI: No - ENDOCRINE Hx Endocrine Disorders: Yes Hx Diabetes: No Hx Thyroid Disease: Yes (hypo) - MUSCULOSKELETAL Hx Musculoskeletal Disorders: No Hx Arthritis: No Hx Back Injury: No Hx Fibromyalgia: No Hx Gout: No Hx Musculoskeletal Disease: No Hx Osteoporosis: No - PSYCH Hx Psych Problems: Yes Hx Anxiety: Yes Hx Behavior Problems: No Hx Depression: Yes Hx Emotional Abuse: No Hx Sexual Abuse: No Hx Suicide Attempt: No - HEMATOLOGY/ONCOLOGY Hx Hematology/Oncology Disorders: Yes Hx Anemia: Yes Hx Blood Disorders: No Hx Bruising: No Hx Cancer: Yes (throat, lung) Hx Chemotherapy: Yes Hx Radiation Therapy: Yes Hx Clotting Problems: No Hx Sickle Cell Disease: No Hx Unexplained Bleeding: No Hx Blood Transfusions: Yes Hx Blood Transfusion Reaction: No Family Medical History Any Significant Family History?: Yes Hx Alcohol Use: Father, Brother/Sister Hx Anxiety: Children Hx Cancer: Father, Mother, Brother/Sister Hx Depression: Mother, Brother/Sister Hx Liver Disease: Brother/Sister Hx Resp Disorders: Brother/Sister Course Vital Signs 09/22/18 13:55 Temperature 98.8 F Pulse Rate 84 Respiratory 24 Rate Blood Pressure 133/93 Pulse Ox 95 - Reevaluation(s) Reevaluation #1: 09/22/18 15:07 No acute changes on the labs. On recheck mild improvement in shortness of breath. Vital at baseline. 09/22/18 16:28 CTA of the chest reviewed. 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 No acute changes. No acute changes on the labs 09/22/18 16:31 09/22/18 16:47 I CALVIN Almeida of hematology/oncology. Given the area appears residual, chronic and unchanged no need to restart the Xarelto. He is to call the office to follow up as planned with hematology/oncology. 09/22/18 16:59 Medical Decision Making - Lab Data Result diagrams: 09/22/18 14:00 09/22/18 14:00 Disposition Disposition: Admit Clinical Impression: COPD (chronic obstructive pulmonary disease) Disposition: Still a Patient at [facility] Decision to Admit: Admit from ER Decision to Admit Date: 09/22/18 Decision to Admit Time: 16:59 Condition: (1) Good Time of Disposition: 16:59 Quality - Quality Measures Quality Measures: N/A - Blood Pressure Screening Does Patient Have Any of the Following: No Blood Pressure Classification: Hypertensive Reading Systolic Measurement: 133 Diastolic Measurement: 93 Screening for High Blood Pressure: < Pre-Hypertensive BP, F/U Documented > [ G8950] Pre-Hypertensive Follow-up Interventions: Referral to alternative/primary care provider.
[2018-09-22] MEDS ORDERED: METHYLPREDNISOLONE PF 125MG/VIAL IVP ONE (14:09)
[2018-09-22 14:17] LABS: BASO % 0.4 % (0-6); EOS % 3.6 % (0-6); HEMATOCRIT 40.1 % (42.0-52.0); HEMOGLOBIN 12.9 gm/dl (14.0-18.0); MEAN CELL VOLUME 90.1 fl (81-97); MEAN CORPUSCULAR HGB CONC 32.2 g/dl (32-36); MEAN PLATELET VOLUME 10.2 fl (7.4-10.4); PLATELET COUNT 438 K/uL (130-400); RED BLOOD COUNT 4.45 M/uL (4.40-5.70); RED CELL DISTRIBUTION WIDTH 14.6 % (11.5-14.5); WHITE BLOOD COUNT W/O DIFF 9.3 K/uL (4.2-12.2)
[2018-09-22 14:23] LABS: MEAN CORPUSCULAR HEMOGLOBIN 28.9 pg (27-33)
[2018-09-22 14:30] LABS: PARTIAL THROMBOPLASTIN TIME 31.2 SECONDS (24.5-39.1); PROTHROMBIN TIME (PATIENT) 9.9 SECONDS (9.5-12.1)
[2018-09-22 14:42] LABS: BLOOD UREA NITROGEN 14 mg/dL (6-20); CREATININE 0.8 mg/dL (0.7-1.2); EST GLOMERULAR FILTRATION RATE > 60 mL/min
[2018-09-22 14:43] LABS: TOTAL PROTEIN 7.3 g/dL (6.6-8.7)
[2018-09-22 14:45] LABS: GLUCOSE,RANDOM 92 mg/dL (74-109)
[2018-09-22 14:48] LABS: ALB/GLOB RATIO 1.5 (1.1-1.8); ALBUMIN 4.4 g/dL (4.0-5.0); ALKALINE PHOSPHATASE 108 U/L (40-129); ALT/SGPT 17 U/L (<41); AST/SGOT 17 U/L (10.0-50.0)
[2018-09-22] MEDS ORDERED: CEFTRIAXONE SODIUM 1 GM in 0.9 % SODIUM CHLORIDE 100ML 100 ML IVPB SCH (17:00)
[2018-09-22] MEDS ORDERED: ALBUTEROL SULFATE (0.083%) 2.5 MG/3 ML NEB INH PRN (17:19)
[2018-09-22] MEDS: BUDESONIDE 0.5 MG/2 ML INH SCH (18:52)
[2018-09-22] MEDS: IPRATROPIUM/ALBUTEROL (0.5MG/3MG) NEB INH SCH ×2 (18:52→22:05)
[2018-09-22] MEDS: TRAZODONE 50 MG TABLET PO SCH (21:29)
[2018-09-22] MEDS: METHYLPREDNISOLONE PF 125MG/VIAL IVP SCH (21:29)
[2018-09-23] MEDS: BUDESONIDE 0.5 MG/2 ML INH SCH ×2 (06:05→17:58)
[2018-09-23] MEDS: IPRATROPIUM/ALBUTEROL (0.5MG/3MG) NEB INH SCH ×5 (06:05→22:43)
[2018-09-23 06:22] LABS: HEMOGLOBIN 11.9 gm/dl (14.0-18.0); LYMPH % 12.3 % (16-45); MEAN CELL VOLUME 88.3 fl (81-97); MEAN CORPUSCULAR HEMOGLOBIN 28.4 pg (27-33); MEAN CORPUSCULAR HGB CONC 32.2 g/dl (32-36); MEAN PLATELET VOLUME 10.1 fl (7.4-10.4); MONO % 2.3 % (0-9); PLATELET COUNT 404 K/uL (130-400); RED BLOOD COUNT 4.19 M/uL (4.40-5.70); RED CELL DISTRIBUTION WIDTH 14.6 % (11.5-14.5); WHITE BLOOD COUNT W/O DIFF 6.8 K/uL (4.2-12.2)
[2018-09-23] MEDS: METHYLPREDNISOLONE PF 125MG/VIAL IVP SCH ×3 (06:28→22:44)
[2018-09-23] MEDS: LEVOTHYROXINE SODIUM 75 MCG TABLET PO SCH (06:29)
[2018-09-23 06:41] LABS: ALB/GLOB RATIO 1.5 (1.1-1.8); ALKALINE PHOSPHATASE 99 U/L (40-129); ALT/SGPT 13 U/L (<41); AST/SGOT 12 U/L (10.0-50.0); BLOOD UREA NITROGEN 12 mg/dL (6-20); CREATININE 0.6 mg/dL (0.7-1.2); EST GLOMERULAR FILTRATION RATE > 60 mL/min; GLUCOSE,RANDOM 138 mg/dL (74-109); TOTAL PROTEIN 6.6 g/dL (6.6-8.7)
[2018-09-23] MEDS: ANORO (UMECLIDINIUM & VILANTEROL) 62.5MCG/25MCG INH IH SCH (09:15)
--- NOTE | 2018-09-23 09:18 | History & Physical ---
History of Present Illness - Date of Service Date of Service for History & Physical: 09/23/18 - History of Present Illness Admitting Diagnosis: Dyspnea, COPD History of Present Illness: Mr. Mae is a 58 year-old male who presented to the ED on with c/o shortness of breath. He states he developed a coughing spell and couldn't seem to catch his breath. No fever. No productive sputum. No hemoptysis. 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 No calf pain or edema. He has a history of oxygen dependent COPD, PE (single area of right sided non occlusive possible thrombus), lung and throat cancer, former smoker, SERINA (in process of obtaining CPAP), neuropathy, diverticulitis, bowel obstruction, polyps, colon resection, c diff, hypothyroidism, anxiety, depression, and anemia. In the ED, his vitals were: BP 133/93, HR 84, RR 24, 95% on 2L NC, and T 98.8F. Labs were unremarkable, INR was 1.0. CTA was reviewed and demonstrated a residual chronic small right pulmonary artery thrombus- no acute change. Dr. Becerra spoke with pt's oncologist, Dr. Almeida, and no need to restart Xarelto. He recommended pt to call Tuesday to f/u with hematology/oncology. Pt's shortness of breath improved mildly with duo nebs. Due to pt's symptoms and comorbidities, pt was admitted for COPD exacerbation. Plan to manage with scheduled resp treatments, monitoring of vitals and telemetry. 09/23/18 0830: Pt. is sitting up in bed. He reports some improvement in his work of breathing since last evening, but that he still seems to not be able to move air as well. He has been up ambulating in his room. He continues to be on 2L NC and his oxygenation is around 95-96%. His am labs were stable. Will plan to continue duo nebs q4h while awake, IV steroids. Will change IV rocephin to cefdinir 300mg BID. PCP: Dr. Bob Hematology/Oncology: Dr. Almeida Travel Screening - Travel/Exposure Within Last 30 Days Have you traveled within the last 30 days?: No - Travel/Exposure Within Last Year Have you traveled outside the [place] in the last year?: No - Additonal Travel Details Have you been exposed to anyone with a communicable illness?: No - Travel Symptoms Symptom Screening: None Past Medical History - SOCIAL HISTORY Smoking Status: Former smoker Alcohol Use: None Drug Use: None - RESPIRATORY Hx Respiratory Disorders: Yes Hx Asthma: No Hx Bronchitis: No Hx COPD: Yes Hx Dyspnea: Yes Hx Pneumonia: Yes Hx Pulmonary Embolism: Yes Hx Sleep Apnea: Yes Hx Tuberculosis: No Hx of CPAP: Yes (is getting soon) Comment:: Home O2 - CARDIOVASCULAR Hx Cardio Disorders: No Hx Abnormal EKG: No Hx Cardiac Cath: No Hx Chest Pain: No Hx CHF: No Hx Deep Vein Thrombosis: No Hx Edema: No Hx Heart Attack: No Hx Hypertension: No Hx Hypotension: No Hx Irregular Heartbeat: No Hx Palpitations: No Hx Pacemaker/Defib: No Hx Vascular Disease: No Comment:: Tolerance is fair as long as wearing O2 - NEURO Hx Neuro Disorders: No Hx Brain Tumor: No Hx CVA: No Hx Dementia: No Hx Dizziness: No Hx Headaches: No Hx Neuropathy: Yes Hx Parkinson's Disease: No Hx Seizures: No Hx Speech Problem: No Hx TIA: No - GI Hx GI Disorders: Yes Hx Abdominal Pain: No Hx Celiac Disease: No Hx Crohn's Disease: No Hx Diverticulitis: Yes Hx GI Bleed: Yes Hx Reflux: Yes Hx Hepatitis/Jaundice: No Hx Hiatal Hernia: No Hx Irritable Bowel: No Hx Liver Disease: No Hx Nausea/Vomiting: No Hx Obstructive Bowel: Yes Hx Pancreatitis: No Hx Rectal Bleeding: No Hx Ulcer: No Hx Wt Loss/Wt Gain: No Hx of Polyps: Yes Comment:: colon perforation (d/t OIC) with resection, +C-diff - Hx Genitourinary Disorders: No Hx Bladder Problem: No Hx Dialysis: No Hx Kidney Stones: No Hx Prostate Problems: No Hx Renal Disease: No Hx UTI: No - ENDOCRINE Hx Endocrine Disorders: Yes Hx Diabetes: No Hx Thyroid Disease: Yes (hypo) - MUSCULOSKELETAL Hx Musculoskeletal Disorders: No Hx Arthritis: No Hx Back Injury: No Hx Fibromyalgia: No Hx Gout: No Hx Musculoskeletal Disease: No Hx Osteoporosis: No - PSYCH Hx Psych Problems: Yes Hx Anxiety: Yes Hx Behavior Problems: No Hx Depression: Yes Hx Emotional Abuse: No Hx Sexual Abuse: No Hx Suicide Attempt: No - HEMATOLOGY/ONCOLOGY Hx Hematology/Oncology Disorders: Yes Hx Anemia: Yes Hx Blood Disorders: No Hx Bruising: No Hx Cancer: Yes (throat, lung) Hx Chemotherapy: Yes Hx Radiation Therapy: Yes Hx Clotting Problems: No Hx Sickle Cell Disease: No Hx Unexplained Bleeding: No Hx Blood Transfusions: Yes Hx Blood Transfusion Reaction: No Family Medical History Any Significant Family History?: Yes Hx Alcohol Use: Father, Brother/Sister Hx Anxiety: Children Hx Cancer: Father, Mother, Brother/Sister Hx Depression: Mother, Brother/Sister Hx Liver Disease: Brother/Sister Hx Resp Disorders: Brother/Sister H&P Meds/Allergies - Allergies Allergies: Allergies Allergy/AdvReac Type Severity Reaction Status Date / Time No Known Drug Allergies Allergy Verified 09/22/18 14:00 - Home Medications Previous Rx's Medication Instructions Recorded Trazodone HCl 50 mg PO QHS #0 02/24/16 Levothyroxine Sodium [Synthroid] 75 mcg PO DAILYTHY tablet 09/27/17 Albuterol Sulfate 0.083% [Neb] 2.5 mg INH RESP.Q1H PRN 11/15/17 nebulization solution Prednisone [Prednisone 20Mg] 20 mg PO BID #10 tab 09/22/18 - Active Medications Active Medications: Current Medications Albuterol Sulfate () 2.5 mg INH RESP.Q2H PRN PRN Reason: DIFFICULTY IN BREATHING Albuterol/Ipratropium (Duoneb) 3 ml INH RESP.Q4H.[facility] Last Admin: 09/23/18 06:05 Dose: 3 ml Budesonide (Pulmicort) 0.5 mg INH Q12H [facility] Last Admin: 09/23/18 06:05 Dose: 0.5 mg Ceftriaxone Sodium 1 gm/ (Sodium Chloride) 100 mls @ 100 mls/hr IVPB Q24H [facility] Stop: 09/27/18 17:01 Last Infusion: 09/22/18 19:22 Dose: Infused Levothyroxine Sodium (Synthroid) 75 mcg PO DAILYTHY [facility] Last Admin: 09/23/18 06:29 Dose: 75 mcg Methylprednisolone Sodium Succinate (Solu-Medrol) 60 mg IVP Q8H [facility] Last Admin: 09/23/18 06:28 Dose: 60 mg Montelukast Sodium (Singulair) 10 mg PO DAILY [facility] Trazodone HCl (Desyrel) 50 mg PO QHS [facility] Last Admin: 09/22/18 21:29 Dose: 50 mg Vitamin D (Vitamin D3) 1,000 unit PO DAILY [facility] Physical Exam - Vital Signs Vital Signs: Vital Signs - Last 24 Hrs Temp Pulse Pulse Pulse Resp BP BP 09/23/18 06:07 94 H 16 09/22/18 22:05 96 H 20 09/22/18 21:00 101 H 20 09/22/18 20:00 97.9 F 101 H 20 115/73 09/22/18 18:58 20 09/22/18 18:56 97 H 20 09/22/18 18:51 85 20 09/22/18 17:25 98.1 F 85 20 163/82 09/22/18 16:21 78 16 136/91 09/22/18 14:04 79 18 09/22/18 13:55 98.8 F 84 24 133/93 Pulse Ox 09/23/18 06:07 96 09/22/18 22:05 95 09/22/18 21:00 09/22/18 20:00 97 09/22/18 18:58 09/22/18 18:56 95 09/22/18 18:51 09/22/18 17:25 94 L 09/22/18 16:21 99 09/22/18 14:04 99 09/22/18 13:55 95 - General General Appearance: Alert, Oriented x3, Cooperative, No acute distress Limitations: No limitations - ENT ENT exam: Normal exam, Mucous membranes moist, Normal external ear exam, Normal orophraynx, TM's normal bilaterally Ear exam: Normal external inspection. negative: External canal tenderness Nasal Exam: Normal inspection. negative: Discharge, Sinus tenderness Mouth exam: Normal external inspection, Tongue normal Teeth exam: Normal inspection. negative: Dental caries Throat exam: Normal inspection. negative: Tonsillar erythema, Tonsillar exudate - Neck Neck exam: Other (Decreased ROM, some loss of SC tissue secondary to radiation) - Respiratory Respiratory exam: Decreased breath sounds. negative: Wheezes - Cardiovascular Cardiovascular Exam: Regular rate, Normal rhythm, Normal heart sounds - GI/Abdominal GI/Abdominal exam: Soft, Normal bowel sounds. negative: Tenderness - Extremities Extremities exam: Normal inspection, Full ROM, Normal capillary refill. negative: Tenderness - Psychiatric Psychiatric exam: Normal affect, Normal mood Results - Labs Result Diagrams: 09/23/18 06:05 09/23/18 06:05 Labs Last 24 Hours: Laboratory Results - last 24 hr 09/22/18 09/22/18 09/22/18 14:00 14:00 14:00 WBC 9.3 RBC 4.45 Hgb 12.9 L Hct 40.1 L MCV 90.1 MCH 28.9 MCHC 32.2 RDW 14.6 H Plt Count 438 H MPV 10.2 Gran % 75.0 Neutrophils % Band Neutrophils % Lymphocytes % 15.0 L Monocytes % 6.0 Eosinophils % 3.6 Basophils % 0.4 Lymphocytes Monocytes Basophils Eosinophil Count PT 9.9 INR 1.0 APTT 31.2 Sodium 143 Potassium 4.1 Chloride 104 Carbon Dioxide 26.0 Anion Gap 13.0 BUN 14 Creatinine 0.8 Estimated GFR > 60 Random Glucose 92 Calcium 9.8 Total Bilirubin 0.20 AST 17 ALT 17 Alkaline Phosphatase 108 Total Protein 7.3 Albumin 4.4 Globulin 2.9 Albumin/Globulin Ratio 1.5 09/23/18 09/23/18 06:05 06:05 WBC 6.8 RBC 4.19 L Hgb 11.9 L Hct 37.0 L MCV 88.3 MCH 28.4 MCHC 32.2 RDW 14.6 H Plt Count 404 H MPV 10.1 Gran % Neutrophils % 86.0 H Band Neutrophils % 0.0 Lymphocytes % 12.3 L Monocytes % 2.3 Eosinophils % 0.0 Basophils % 0.0 Lymphocytes 12.0 L Monocytes 2.0 Basophils 0.0 Eosinophil Count 0.0 PT INR APTT Sodium 142 Potassium 4.1 Chloride 106 Carbon Dioxide 22.0 Anion Gap 14.0 BUN 12 Creatinine 0.6 L Estimated GFR > 60 Random Glucose 138 H Calcium 9.6 Total Bilirubin 0.30 AST 12 ALT 13 Alkaline Phosphatase 99 Total Protein 6.6 Albumin 4.0 Globulin 2.6 Albumin/Globulin Ratio 1.5 - Imaging and Cardiology CT scan - chest Status: Pending VTE H&P Assessment - Risk for VTE Risk for VTE: Yes Risk Level: Moderate Risk Assessment Date: 09/23/18 Risk Assessment Time: 09:24 VTE Orders Placed or Will Be Placed: Yes Plan - Inpatient Certification Inpatient Certification: Admit to inpatient care: Based on my medical assessment, after consideration of patient's risk factors (age, co-morbidities and patient presenting symptoms and acuity), I expect that this patient will remain in the hospital greater than or equal to two midnights and that the services needed warrant inpatient care because: Patient Risk Factors: [Age, co-morbidities] Estimated length of stay: [24-72 hours] The patient may reasonably be expected to be discharged or transferred to a hospital within 96 hours after admission to [facility]. Services needed: [Respiratory treatments, lab monitoring, telemetry, IV steroids ] Post hospital care (if known): [] I certify that my determination is in accordance with my understanding of Medicare requirements for reasonable and necessary inpatient services. 09/23/18 09:30 - Detailed Diagnosis and Plan (1) COPD (chronic obstructive pulmonary disease) Current Visit: Yes Status: Acute Base Code: J44.9 - CHRONIC OBSTRUCTIVE PULMONARY DISEASE, UNSPECIFIED Comment: 09/23/18: -On 2L oxygen NC (baseline home oxygen level) and saturation is 94-95% -Continue duo nebs q4h while awake -Continue IV steroids -Changed IV rocephin to cefdinir 300mg PO BID -NSR on tele -Labs unremarkable (2) Cancer of right lung Current Visit: No Status: Acute Qualifiers: Lung location: unspecified part of lung Qualified Code(s): C34.91 - Malignant neoplasm of unspecified part of right bronchus or lung Base Code: C34.91 - MALIGNANT NEOPLASM OF UNSP PART OF RIGHT BRONCHUS OR LUNG Comment: 09/23/18: -Right lung CA -Pt. follows with Dr. Almeida for hematology/oncology -CTA in ED demonstrated chronic small right pulmonary artery thrombus, no acute change (3) At risk for deep venous thrombosis Current Visit: Yes Status: Acute Base Code: Z91.89 - OTH PERSONAL RISK FACTORS, NOT ELSEWHERE CLASSIFIED Comment: 09/23/18: -Pt. is at a high risk for DVT due to lung cancer -Lovenox 40mg SC qhs ordered for prophylaxis (4) Full code status Current Visit: No Status: Acute Base Code: Z78.9 - OTHER SPECIFIED HEALTH STATUS Comment: 09/23/18: -Pt. is full code
[2018-09-23] MEDS: CHOLECALCIFEROL 1,000 UNIT TABLET PO SCH (09:34)
[2018-09-23] MEDS: CEFDINIR 300 MG CAPSULE PO SCH ×2 (09:34→22:43)
[2018-09-23] MEDS: MONTELUKAST SODIUM 10MG TABLET PO SCH (09:34)
[2018-09-23] MEDS: TRAZODONE 50 MG TABLET PO SCH (22:44)
--- NOTE | 2018-09-23 22:44 | CT ANGIOGRAM REPORT ---
EXAM: CT ANGIOGRAM CHEST CTA w contrast HISTORY: DIFFICULTY IN BREATHING. TECHNIQUE: CTA of the chest was performed after intravenous administration of 80 mL of Omnipaque-350 contrast material. Sagittal and coronal MIP images were performed on an independent workstation. FINDINGS: There is residual thrombus in the distal right main pulmonary artery , which appears chronic in nature. The remainder of the pulmonary vasculature is well opacified. Volume loss in the right hemithorax. Underlying centrilobular emphysematous change. No mediastinal or hilar lymphadenopathy. The visualized upper abdominal structures are normal. IMPRESSION: 1. CHRONIC PULMONARY EMBOLUS IN THE DISTAL RIGHT MAIN PULMONARY ARTERY. NO ADDITIONAL PULMONARY EMBOLI ARE APPRECIATED. 2. POST-OP SURGICAL CHANGE IN THE RIGHT HEMITHORAX. SEVERE UNDERLYING CENTRILOBULAR EMPHYSEMATOUS CHANGE. JOB NUMBER: [id number] MTDD
[2018-09-23] MEDS: ENOXAPARIN 40 MG/0.4 ML SYR SQ SCH (22:48)
[2018-09-24] MEDS: IPRATROPIUM/ALBUTEROL (0.5MG/3MG) NEB INH SCH ×5 (06:05→21:37)
[2018-09-24 06:13] LABS: BASO % 0.1 % (0-6); HEMATOCRIT 36.9 % (42.0-52.0); HEMOGLOBIN 11.9 gm/dl (14.0-18.0); LYMPH % 5.3 % (16-45); MEAN CELL VOLUME 90.2 fl (81-97); MEAN CORPUSCULAR HGB CONC 32.2 g/dl (32-36); MEAN PLATELET VOLUME 9.9 fl (7.4-10.4); MONO % 4.2 % (0-9); PLATELET COUNT 429 K/uL (130-400); RED BLOOD COUNT 4.09 M/uL (4.40-5.70); RED CELL DISTRIBUTION WIDTH 14.9 % (11.5-14.5); WHITE BLOOD COUNT W/O DIFF 16.1 K/uL (4.2-12.2)
[2018-09-24] MEDS: METHYLPREDNISOLONE PF 125MG/VIAL IVP SCH (06:47)
[2018-09-24 06:48] LABS: ALB/GLOB RATIO 1.7 (1.1-1.8); ALBUMIN 4.1 g/dL (4.0-5.0); ALKALINE PHOSPHATASE 87 U/L (40-129); ALT/SGPT 13 U/L (<41); AST/SGOT 13 U/L (10.0-50.0); BLOOD UREA NITROGEN 21 mg/dL (6-20); CREATININE 0.7 mg/dL (0.7-1.2); EST GLOMERULAR FILTRATION RATE > 60 mL/min; GLUCOSE,RANDOM 133 mg/dL (74-109); TOTAL PROTEIN 6.5 g/dL (6.6-8.7)
[2018-09-24] MEDS: LEVOTHYROXINE SODIUM 75 MCG TABLET PO SCH (06:49)
[2018-09-24] MEDS ORDERED: BREO (FLUTICASONE/VILANTEROL) 200MCG/25MCG INHALER INH ONE (09:24)
--- NOTE | 2018-09-24 10:52 | Physician Progress Note ---
Subjective - Date Date of Physician Progress Note: 09/24/18 (Pt. continues to improve, he does still report some chest tightness- in process of trialing use of only Breo and duo nebs (tightness reported after use of budesinide). Will continue to monitor. ) Objective - Vital Signs Vital Signs: Vital Signs - Last 24 Hrs Temp Pulse Pulse Pulse Resp BP Pulse Ox 09/24/18 09:32 83 18 98 09/24/18 09:00 98.1 F 83 20 116/66 93 L 09/24/18 08:41 99 H 91 H 18 09/24/18 08:17 18 09/24/18 06:06 98 H 18 95 09/23/18 22:32 89 18 95 09/23/18 21:00 99 H 09/23/18 20:00 97.6 F 91 H 20 93/66 100 09/23/18 17:59 88 18 99 09/23/18 17:00 98.7 F 88 20 127/79 96 09/23/18 14:08 94 H 18 98 - General General Appearance: Alert, Oriented x3, Cooperative, No acute distress Limitations: No limitations - ENT ENT exam: Normal exam, Mucous membranes moist, Normal external ear exam, Normal orophraynx, TM's normal bilaterally Ear exam: Normal external inspection. negative: External canal tenderness Nasal Exam: Normal inspection. negative: Discharge, Sinus tenderness Mouth exam: Normal external inspection, Tongue normal Teeth exam: Normal inspection. negative: Dental caries Throat exam: Normal inspection. negative: Tonsillar erythema, Tonsillar exudate - Neck Neck exam: Other (Decreased ROM, some loss of SC tissue secondary to radiation) - Respiratory Respiratory exam: Decreased breath sounds. negative: Wheezes - Cardiovascular Cardiovascular Exam: Regular rate, Normal rhythm, Normal heart sounds - GI/Abdominal GI/Abdominal exam: Soft, Normal bowel sounds. negative: Tenderness - Extremities Extremities exam: Normal inspection, Full ROM, Normal capillary refill. negative: Tenderness - Psychiatric Psychiatric exam: Normal affect, Normal mood Assessment and Plan - Assessment and Plan (1) COPD (chronic obstructive pulmonary disease) Current Visit: Yes Status: Acute Base Code: J44.9 - CHRONIC OBSTRUCTIVE PULMONARY DISEASE, UNSPECIFIED Comment: 09/24/18: -On 2L oxygen NC (baseline home oxygen level) and saturation is 93-96% -Continue duo nebs q4h while awake, breo ellipts 200-25 mcg 1 puff daily, d/c's budesinide due to causing worsening of chest tightness -Changed IV steroids to PO today -Continue cefdinir 300mg PO BID -NSR on tele -Labs stable (2) Cancer of right lung Current Visit: No Status: Acute Qualifiers: Lung location: unspecified part of lung Qualified Code(s): C34.91 - Malignant neoplasm of unspecified part of right bronchus or lung Base Code: C34.91 - MALIGNANT NEOPLASM OF UNSP PART OF RIGHT BRONCHUS OR LUNG Comment: 09/24/18: -Right lung CA -Pt. follows with Dr. Almeida for hematology/oncology -CTA in ED demonstrated chronic small right pulmonary artery thrombus, no acute change -Pt has pulmonology appt on 10/05 (3) At risk for deep venous thrombosis Current Visit: Yes Status: Acute Base Code: Z91.89 - OTH PERSONAL RISK FACTORS, NOT ELSEWHERE CLASSIFIED Comment: 09/24/18: -Pt. is at a high risk for DVT due to lung cancer -Lovenox 40mg SC qhs ordered for prophylaxis (4) Full code status Current Visit: No Status: Acute Base Code: Z78.9 - OTHER SPECIFIED HEALTH STATUS Comment: 09/24/18: -Pt. is full code Results - Labs Result Diagrams: 09/24/18 06:05 09/24/18 06:05 Labs Last 24 Hours: Laboratory Results - last 24 hr 09/24/18 09/24/18 06:05 06:05 WBC 16.1 H RBC 4.09 L Hgb 11.9 L Hct 36.9 L MCV 90.2 MCH 29.0 MCHC 32.2 RDW 14.9 H Plt Count 429 H MPV 9.9 Neutrophils % 86.0 H Band Neutrophils % 4.0 Lymphocytes % 5.3 L Monocytes % 4.2 Eosinophils % 0.0 Basophils % 0.1 Lymphocytes 5.0 L Monocytes 5.0 Basophils 0.0 Eosinophil Count 0.0 Sodium 141 Potassium 4.3 Chloride 104 Carbon Dioxide 24.0 Anion Gap 13.0 BUN 21 H Creatinine 0.7 Estimated GFR > 60 Random Glucose 133 H Calcium 9.7 Total Bilirubin 0.20 AST 13 ALT 13 Alkaline Phosphatase 87 Total Protein 6.5 L Albumin 4.1 Globulin 2.4 Albumin/Globulin Ratio 1.7 DVT/PE Assessment - Risk for VTE Risk for VTE: Yes Risk Level: Moderate Risk Assessment Date: 09/23/18 Risk Assessment Time: 09:24 VTE Orders Placed or Will Be Placed: Yes - Active Medicaitons Current Medications: Current Medications Albuterol Sulfate () 2.5 mg INH RESP.Q2H PRN PRN Reason: DIFFICULTY IN BREATHING Albuterol/Ipratropium (Duoneb) 3 ml INH RESP.Q4H.[facility] Last Admin: 09/24/18 09:29 Dose: 3 ml Cefdinir (Cefdinir) 300 mg PO BID [facility] Stop: 09/27/18 10:01 Last Admin: 09/23/18 22:43 Dose: 300 mg Enoxaparin Sodium (Lovenox) 40 mg SQ QHS [facility] Last Admin: 09/23/18 22:48 Dose: 40 mg Levothyroxine Sodium (Synthroid) 75 mcg PO DAILYTHY [facility] Last Admin: 09/24/18 06:49 Dose: 75 mcg Montelukast Sodium (Singulair) 10 mg PO DAILY [facility] Last Admin: 09/23/18 09:34 Dose: 10 mg Prednisone (Prednisone 20mg) 40 mg PO DAILYWM [facility] Trazodone HCl (Desyrel) 50 mg PO QHS [facility] Last Admin: 09/23/18 22:44 Dose: 50 mg Vitamin D (Vitamin D3) 1,000 unit PO DAILY [facility] Last Admin: 09/23/18 09:34 Dose: 1,000 unit AMI Plan - Labs Result Diagrams: 09/24/18 06:05 09/24/18 06:05
[2018-09-24] MEDS: MONTELUKAST SODIUM 10MG TABLET PO SCH (10:57)
[2018-09-24] MEDS: CEFDINIR 300 MG CAPSULE PO SCH ×2 (10:57→22:08)
[2018-09-24] MEDS: CHOLECALCIFEROL 1,000 UNIT TABLET PO SCH (10:57)
[2018-09-24] MEDS: ANORO (UMECLIDINIUM & VILANTEROL) 62.5MCG/25MCG INH IH SCH (17:29)
[2018-09-24] MEDS: BUDESONIDE 0.5 MG/2 ML INH SCH (17:29)
[2018-09-24] MEDS: ENOXAPARIN 40 MG/0.4 ML SYR SQ SCH (22:07)
[2018-09-24] MEDS: TRAZODONE 50 MG TABLET PO SCH (22:09)
[2018-09-25] MEDS ORDERED: BREO (FLUTICASONE/VILANTEROL) 200MCG/25MCG INHALER INH SCH (06:00)
[2018-09-25] MEDS: IPRATROPIUM/ALBUTEROL (0.5MG/3MG) NEB INH SCH ×2 (06:07→10:01)
[2018-09-25] MEDS: LEVOTHYROXINE SODIUM 75 MCG TABLET PO SCH (06:32)
[2018-09-25] MEDS ORDERED: PREDNISONE 20 MG TAB PO SCH (08:00)
--- NOTE | 2018-09-25 08:00 | Discharge Summary ---
Providers Discharge Summary Date: 09/25/18 Date of admission: 09/22/18 17:16 Expected Date of Discharge: 09/25/18 Attending physician: KELLY HERNANDES Primary care physician: Jim Bob Physical Exam - Vital Signs Vital Signs: Vital Signs - Last 24 Hrs Temp Pulse Pulse Pulse Resp BP Pulse Ox 09/25/18 06:07 74 18 95 09/24/18 21:38 78 18 95 09/24/18 21:06 97.6 F 79 20 112/71 98 09/24/18 21:00 79 09/24/18 18:15 88 18 99 09/24/18 17:00 98.1 F 88 18 125/71 97 09/24/18 14:18 88 18 99 09/24/18 09:32 83 18 98 09/24/18 09:00 98.1 F 83 20 116/66 93 L 09/24/18 08:41 99 H 91 H 18 09/24/18 08:17 18 - General General Appearance: Alert, Oriented x3, Cooperative, No acute distress Limitations: No limitations - ENT ENT exam: Normal exam, Mucous membranes moist, Normal external ear exam, Normal orophraynx, TM's normal bilaterally Ear exam: Normal external inspection. negative: External canal tenderness Nasal Exam: Normal inspection. negative: Discharge, Sinus tenderness Mouth exam: Normal external inspection, Tongue normal Teeth exam: Normal inspection. negative: Dental caries Throat exam: Normal inspection. negative: Tonsillar erythema, Tonsillar exudate - Neck Neck exam: Other (Decreased ROM, some loss of SC tissue secondary to radiation) - Respiratory Respiratory exam: Decreased breath sounds. negative: Wheezes - Cardiovascular Cardiovascular Exam: Regular rate, Normal rhythm, Normal heart sounds - GI/Abdominal GI/Abdominal exam: Soft, Normal bowel sounds. negative: Tenderness - Extremities Extremities exam: Normal inspection, Full ROM, Normal capillary refill. negative: Tenderness - Psychiatric Psychiatric exam: Normal affect, Normal mood Hospitalization - Hospitalization Admission Diagnosis: Dyspnea, COPD - Problem List/Discharge Diagnosis (1) COPD (chronic obstructive pulmonary disease) Current Visit: Yes Status: Acute Base Code: J44.9 - CHRONIC OBSTRUCTIVE PULMONARY DISEASE, UNSPECIFIED Comment: 09/25/18: -On 2L oxygen NC (baseline home oxygen level) and saturation is 93-96% -Continue duo nebs q4h while awake, breo ellipts 200-25 mcg 1 puff daily, d/c's budesinide due to causing worsening of chest tightness -Plan to d/c home today- tightness has improved with use of only Breo and duo neb, pt has f/u with tunnel miner on 10/05 (2) Cancer of right lung Current Visit: No Status: Acute Discharge Diagnosis: Lung location: unspecified part of lung Qualified Code(s): C34.91 - Malignant neoplasm of unspecified part of right bronchus or lung Base Code: C34.91 - MALIGNANT NEOPLASM OF UNSP PART OF RIGHT BRONCHUS OR LUNG Comment: 09/25/18: -Right lung CA -Pt. follows with Dr. Almeida for hematology/oncology -CTA in ED demonstrated chronic small right pulmonary artery thrombus, no acute change -Pt has pulmonology appt on 10/05 (3) At risk for deep venous thrombosis Current Visit: Yes Status: Acute Base Code: Z91.89 - OTH PERSONAL RISK FACTORS, NOT ELSEWHERE CLASSIFIED Comment: 09/25/18: -Will not continue prophylaxis with discharge- pt to return to normal level of activity (4) Full code status Current Visit: No Status: Acute Base Code: Z78.9 - OTHER SPECIFIED HEALTH STATUS Comment: 09/25/18: -Pt. is full code - Hospitalization Course Disposition: Home, Self-Care Hospital Course: Mr. Mae is a 58 year-old male who presented to the ED on with c/o shortness of breath. He states he developed a coughing spell and couldn't seem to catch his breath. No fever. No productive sputum. No hemoptysis. He was taken of his Xarelto a week ago by his dielectric press operator/ oncologist. No calf pain or edema. He has a history of oxygen dependent COPD, PE (single area of right sided non occlusive possible thrombus), lung and throat cancer, former smoker, SERINA (in process of obtaining CPAP), neuropathy, diverticulitis, bowel obstruction, polyps, colon resection, c diff, hypothyroidism, anxiety, depression, and anemia. In the ED, his vitals were: BP 133/93, HR 84, RR 24, 95% on 2L NC, and T 98.8F. Labs were unremarkable, INR was 1.0. CTA was reviewed and demonstrated a residual chronic small right pulmonary artery thrombus- no acute change. Dr. Becerra spoke with pt's oncologist, Dr. Almeida, and no need to restart Xarelto. He recommended pt to call Tuesday to f/u with hematology/oncology. Pt's shortness of breath improved mildly with duo nebs. Due to pt's symptoms and comorbidities, pt was admitted for COPD exacerbation. Plan to manage with scheduled resp treatments, monitoring of vitals and telemetry. 09/23/18 0830: Pt. is sitting up in bed. He reports some improvement in his work of breathing since last evening, but that he still seems to not be able to move air as well. He has been up ambulating in his room. He continues to be on 2L NC and his oxygenation is around 95-96%. His am labs were stable. Will plan to continue duo nebs q4h while awake, IV steroids. Will change IV rocephin to cefdinir 300mg BID. 09/24/18 Pt. continues to improve, he does still report some chest tightness- in process of trialing use of only Breo and duo nebs (tightness reported after use of budesinide). Will continue to monitor. 09/25/18: Pt continues to improve with SOB, will d/c home today. (tightness greatly improved with use of duo nebs and Breo). Will continue prednisone 40mg daily for 4 more days and cefdinir 300mg bid. Will prescribe duo nebs for home use- pt was provided a coupon for 120 vials for $31 by respiratory therapist. Pt. has f/u with his tunnel miner on 10/05. PCP: Dr. Bob Hematology/Oncology: Dr. Almeida Procedures: Imaging and X-Rays 09/22/18 15:09 CHEST CTA w contrast [CTA] Stat Cardiology Procedures 09/22/18 13:59 Ui Ux Web Developer NOW 09/22/18 17:19 Ui Ux Web Developer .Continuous Abnormal Labs: Abnormal Lab Results 09/22/18 09/23/18 09/23/18 Range/Units 14:00 06:05 06:05 WBC (4.2-12.2) K/uL RBC 4.19 L (4.40-5.70) M/uL Hgb 12.9 L 11.9 L (14.0-18.0) gm/dl Hct 40.1 L 37.0 L (42.0-52.0) % RDW 14.6 H 14.6 H (11.5-14.5) % Plt Count 438 H 404 H (130-400) K/uL Neutrophils % 86.0 H (47-80) % Lymphocytes % 15.0 L 12.3 L (16-45) % Lymphocytes 12.0 L (16-45) % BUN (6-20) mg/dL Creatinine 0.6 L (0.7-1.2) mg/dL Random Glucose 138 H (74-109) mg/dL Total Protein (6.6-8.7) g/dL 09/24/18 09/24/18 Range/Units 06:05 06:05 WBC 16.1 H (4.2-12.2) K/uL RBC 4.09 L (4.40-5.70) M/uL Hgb 11.9 L (14.0-18.0) gm/dl Hct 36.9 L (42.0-52.0) % RDW 14.9 H (11.5-14.5) % Plt Count 429 H (130-400) K/uL Neutrophils % 86.0 H (47-80) % Lymphocytes % 5.3 L (16-45) % Lymphocytes 5.0 L (16-45) % BUN 21 H (6-20) mg/dL Creatinine (0.7-1.2) mg/dL Random Glucose 133 H (74-109) mg/dL Total Protein 6.5 L (6.6-8.7) g/dL Condition at Discharge: (2) Stable VTE Discharge VTE Reason For No Overlap Therapy: Not Indicated Discharge Medications - Discharge Medications Prescriptions: Cefdinir 300 mg PO BID #5 capsule Ipratropium/Albuterol [Duoneb] 3 ml INH Q4H #120 ampul.neb Prednisone [Prednisone 20Mg] 20 mg PO BID #10 tab Prednisone [Prednisone 20Mg] 40 mg PO DAILYWM 4 Days #8 tab Home Medications: Ambulatory Orders Trazodone HCl 50 mg PO QHS #0 02/24/16 [Last Taken 04/30/18] Levothyroxine Sodium [Synthroid] 75 mcg PO DAILYTHY tablet 09/27/17 [Last Taken 04/30/18] Cholecalciferol (Vitamin D3) [Vitamin D3] 1,000 unit PO DAILY 12/14/17 [Last Taken 04/30/18] Montelukast Sodium 10 mg PO DAILY 02/12/18 [Last Taken 04/30/18] Prednisone [Prednisone 20Mg] 20 mg PO BID #10 tab 09/22/18 [Last Taken Unknown] Cefdinir 300 mg PO BID #5 capsule 09/25/18 [Last Taken Unknown] Fluticasone/Vilanterol 200/25 [Breo Ellipta 200-25 Mcg INH] 1 puff INH RESP.DAILY #0 inhaler 09/25/18 [Last Taken Unknown] Ipratropium/Albuterol [Duoneb] 3 ml INH Q4H #120 ampul.neb 09/25/18 [Last Taken Unknown] Prednisone [Prednisone 20Mg] 40 mg PO DAILYWM 4 Days #8 tab 09/25/18 [Last Taken Unknown] Discharge Plan - Discharge Instructions Activity at Discharge: Resume Usual Activities As Tolerated, Wear Oxygen At All Times Diet at Discharge: Regular Diet Instructions: Emphysema (ED) Additional Instructions: Follow up with Dr. Bob within 3-5 days Follow up with your tunnel miner on 10/05 as scheduled Return to the ED if your symptoms worsen or if you experience any chest pain Quality Measures - Quality Measures Quality Measures: Documentation of Current Medications in Medical Record, Screening for High Blood Pressure and F/U Documented - Current Medications Quality Measure: Measure #130: Documentation of Current Medications Documentation of Current Medications: <Current Medications Documented/Reviewed> [G8427] - Blood Pressure Screening Quality Measure: Screening for High Blood Pressure and Follow-Up Documented Does Patient Have Any of the Following: No Blood Pressure Classification: Hypertensive Reading Systolic Measurement: 133 Diastolic Measurement: 93 Screening for High Blood Pressure: < Normal BP, F/U Not Required > [G8783] - Elder Abuse Suspicion Index EASI Reference Information: Petra ANAND, Shelly C, Greg D, Luiz Peralta.Development and validation of a tool to assist physicians identification of elder abuse: The Elder Abuse Suspicion Index (EASI ). Journal of Elder Abuse and Neglect, 2008; 20 (3): 276-300.
[2018-09-25] MEDS: CHOLECALCIFEROL 1,000 UNIT TABLET PO SCH (10:05)
[2018-09-25] MEDS: CEFDINIR 300 MG CAPSULE PO SCH (10:05)
[2018-09-25] MEDS: MONTELUKAST SODIUM 10MG TABLET PO SCH (10:07)
== END 2018-09-25 13:20 | disposition home or self-care (01) | DRG 191 ==
LOC: ER 13:49 → MEDSURG 17:16
PROVIDERS: ADMIT Internal Medicine; ATTEND Internal Medicine
DX: J44.9 Chronic obstructive pulmonary disease, unspecified (principal); C34.91 Malignant neoplasm of unspecified part of right bronchus or lung; A04.72 Enterocolitis due to Clostridium difficile, not specified as recurrent; R06.00 Dyspnea, unspecified; E03.9 Hypothyroidism, unspecified; D64.9 Anemia, unspecified; K21.9 Gastro-esophageal reflux disease without esophagitis; G62.9 Polyneuropathy, unspecified; Z85.818 Personal history of malignant neoplasm of other sites of lip, oral cavity, and pharynx; Z86.711 Personal history of pulmonary embolism; Z87.891 Personal history of nicotine dependence
CPT/HCPCS: 85025; 85730; 85610; 80053; 71275; 94640; Q9967; 85027; 94760; 94761; 96374; 99223; 99233; 99239; 99285; J1650; J2930; J7512

== ENCOUNTER 2018-09-28 13:23 | Emergency (ER) | payer MEDICARE, MEDICAID ==
--- NOTE | 2018-09-28 13:40 | Emergency Department Record ---
History of Present Illness - General Chief Complaint: Difficulty Breathing Stated Complaint: TROUBLE BREATHING Time Seen by Provider: 09/28/18 13:25 Source: Patient Mode of Arrival: Ambulatory Limitations: No limitations - History of Present Illness Initial Comments: 58 yo male presents to ED for evaluation of difficulty in breathing symptoms that began this morning. Patient was released from Hospital 3 days ago following admission for COPD, reports that he has been taking his Prednisone and Cefdinir as directed. Patient also has been using his Duonebs as directed. Patient denies fevers, chills, or productive cough symptoms, denies chest pain symptoms. MD Complaint: Shortness of breath Onset/Timin -: Hour(s) Severity: Mild Severity scale (1-10): 1 Consistency: Constant Improves With: Bronchodilators Worsens With: Nothing Known History Of: COPD Associated Symptoms: Denies other symptoms Treatments Prior to Arrival: Bronchodilator - Related Data Home Oxygen Therapy: Yes Home Oxygen Amount: 2 Liters Previous Rx's Medication Instructions Recorded Trazodone HCl 50 mg PO QHS #0 02/24/16 Levothyroxine Sodium [Synthroid] 75 mcg PO DAILYTHY tablet 09/27/17 Prednisone [Prednisone 20Mg] 20 mg PO BID #10 tab 09/22/18 Cefdinir 300 mg PO BID #5 capsule 09/25/18 Fluticasone/Vilanterol 200/25 1 puff INH RESP.DAILY #0 inhaler 09/25/18 [Breo Ellipta 200-25 Mcg INH] Ipratropium/Albuterol [Duoneb] 3 ml INH Q4H #120 ampul.neb 09/25/18 Allergies Allergy/AdvReac Type Severity Reaction Status Date / Time No Known Drug Allergies Allergy Verified 09/28/18 13:33 Travel Screening - Travel/Exposure Within Last 30 Days Have you traveled within the last 30 days?: No - Travel/Exposure Within Last Year Have you traveled outside the [place] in the last year?: No - Additonal Travel Details Have you been exposed to anyone with a communicable illness?: No - Travel Symptoms Symptom Screening: None Review of Systems Constitutional: Denies: Chills, Fever, Malaise, Night sweats Eyes: Denies: Eye discharge, Eye pain ENT: Denies: Congestion, Ear pain, Epistaxis Respiratory: Reports: Dyspnea. Denies: Cough, Hemoptysis Cardiovascular: Denies: Chest pain, Edema Endocrine: Denies: Fatigue, Heat or cold intolerance Gastrointestinal: Denies: Abdominal pain, Nausea, Vomiting Genitourinary: Denies: Incontinence, Retention Musculoskeletal: Denies: Arthralgia, Back pain, Gout, Joint swelling Skin: Denies: Bruising, Change in color Neurological: Denies: Abnormal gait, Confusion, Headache, Seizure Psychiatric: Denies: Anxiety Hematological/Lymphatic: Reports: Blood Clots. Denies: Anemia Past Medical History - SOCIAL HISTORY Smoking Status: Former smoker Alcohol Use: None Drug Use: None - RESPIRATORY Hx Respiratory Disorders: Yes Hx Asthma: No Hx Bronchitis: No Hx COPD: Yes Hx Dyspnea: Yes Hx Pneumonia: Yes Hx Pulmonary Embolism: Yes Hx Sleep Apnea: Yes Hx Tuberculosis: No Hx of CPAP: Yes (is getting soon) Comment:: Home O2 - CARDIOVASCULAR Hx Cardio Disorders: No Hx Abnormal EKG: No Hx Cardiac Cath: No Hx Chest Pain: No Hx CHF: No Hx Deep Vein Thrombosis: No Hx Edema: No Hx Heart Attack: No Hx Hypertension: No Hx Hypotension: No Hx Irregular Heartbeat: No Hx Palpitations: No Hx Pacemaker/Defib: No Hx Vascular Disease: No Comment:: Tolerance is fair as long as wearing O2 - NEURO Hx Neuro Disorders: No Hx Brain Tumor: No Hx CVA: No Hx Dementia: No Hx Dizziness: No Hx Headaches: No Hx Neuropathy: Yes Hx Parkinson's Disease: No Hx Seizures: No Hx Speech Problem: No Hx TIA: No - GI Hx GI Disorders: Yes Hx Abdominal Pain: No Hx Celiac Disease: No Hx Crohn's Disease: No Hx Diverticulitis: Yes Hx GI Bleed: Yes Hx Reflux: Yes Hx Hepatitis/Jaundice: No Hx Hiatal Hernia: No Hx Irritable Bowel: No Hx Liver Disease: No Hx Nausea/Vomiting: No Hx Obstructive Bowel: Yes Hx Pancreatitis: No Hx Rectal Bleeding: No Hx Ulcer: No Hx Wt Loss/Wt Gain: No Hx of Polyps: Yes Comment:: colon perforation (d/t OIC) with resection, +C-diff - Hx Genitourinary Disorders: No Hx Bladder Problem: No Hx Dialysis: No Hx Kidney Stones: No Hx Prostate Problems: No Hx Renal Disease: No Hx UTI: No - ENDOCRINE Hx Endocrine Disorders: Yes Hx Diabetes: No Hx Thyroid Disease: Yes (hypo) - MUSCULOSKELETAL Hx Musculoskeletal Disorders: No Hx Arthritis: No Hx Back Injury: No Hx Fibromyalgia: No Hx Gout: No Hx Musculoskeletal Disease: No Hx Osteoporosis: No - PSYCH Hx Psych Problems: Yes Hx Anxiety: Yes Hx Behavior Problems: No Hx Depression: Yes Hx Emotional Abuse: No Hx Sexual Abuse: No Hx Suicide Attempt: No - HEMATOLOGY/ONCOLOGY Hx Hematology/Oncology Disorders: Yes Hx Anemia: Yes Hx Blood Disorders: No Hx Bruising: No Hx Cancer: Yes (throat, lung) Hx Chemotherapy: Yes Hx Radiation Therapy: Yes Hx Clotting Problems: No Hx Sickle Cell Disease: No Hx Unexplained Bleeding: No Hx Blood Transfusions: Yes Hx Blood Transfusion Reaction: No Family Medical History Any Significant Family History?: Yes Hx Alcohol Use: Father, Brother/Sister Hx Anxiety: Children Hx Cancer: Father, Mother, Brother/Sister Hx Depression: Mother, Brother/Sister Hx Liver Disease: Brother/Sister Hx Resp Disorders: Brother/Sister Physical Exam - General General Appearance: Alert, Oriented x3, Cooperative, No acute distress Limitations: No limitations - Head Head exam: Atraumatic, Normocephalic, Normal inspection Head exam detail: negative: Abrasion, Contusion, Ott's sign, General tenderness, Hematoma, Laceration - Eye Eye exam: Normal appearance. negative: Conjunctival injection, Periorbital swelling, Periorbital tenderness, Scleral icterus - ENT Ear exam: negative: Auricular hematoma, Auricular trauma Nasal Exam: negative: Active bleeding, Discharge, Dried blood, Foreign body Mouth exam: negative: Drooling, Laceration, Muffled voice, Tongue elevation - Neck Neck exam: Normal inspection. negative: Meningismus, Tenderness - Respiratory Respiratory exam: Decreased breath sounds, Other (Mildly decreased BS, clear however on examination.). negative: Rales, Respiratory distress, Rhonchi, Stridor, Wheezes - Cardiovascular Cardiovascular Exam: Regular rate, Normal rhythm, Normal heart sounds - GI/Abdominal GI/Abdominal exam: Soft. negative: Rebound, Rigid, Tenderness - Rectal Rectal exam: Deferred - exam: Deferred - Extremities Extremities exam: Normal inspection. negative: Pedal edema, Tenderness - Back Back exam: Denies: CVA tenderness (R), CVA tenderness (L) - Neurological Neurological exam: Alert, Normal gait, Oriented X3 - Psychiatric Psychiatric exam: Normal affect, Normal mood - Skin Skin exam: Normal color. 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 Becerra did speak with the patient's household assistant, was instructed to follow- up Tuesday for an appoint. Restarting Xarelto was not recommended at that time. Will obtain CXR given recent CTA, EKG, and laboratory studies and reassess. Patient is well appearing on initial examination without evidence for respiratory distress. Reevaluation #2: 09/28/18 14:10 CXR: Chronic post-operative changes No acute process Reevaluation #3: 09/28/18 14:15 Laboratory studies were reviewed and are grossly unremarkable for an acute process. EKG: NSR 80 Normal axis, normal intervals No acute ST-T wave changes are present Patient was updated on all results, no respiratory distress noted on examination. Given the patient's stable vital signs and recent negative CTA, recurrent PE is clinically unlikely. Ambulating biox 94-95% without significant respiratory distress. Patient appears stable for continued outpatient treatment of his COPD symptoms. 09/28/18 14:46 Medical Decision Making - Lab Data Result diagrams: 09/28/18 13:40 09/28/18 13:40 Disposition Disposition: Discharge Clinical Impression: COPD (chronic obstructive pulmonary disease) Qualifiers: COPD type: unspecified COPD Qualified Code(s): J44.9 - Chronic obstructive pulmonary disease, unspecified Disposition: Home, Self-Care Condition: (2) Stable Instructions: COPD (Chronic Obstructive Pulmonary Disease) (ED) Additional Instructions: Return to ED if your symptoms worsen or if you have any concerns. Continue prednisone and cefdinir as prescribed. Follow-up with your family doctor in 3-5 days as directed. Forms: Patient Portal Access Time of Disposition: 14:34 Quality - Quality Measures Quality Measures: N/A - Blood Pressure Screening Does Patient Have Any of the Following: No Blood Pressure Classification: Hypertensive Reading Systolic Measurement: 157 Diastolic Measurement: 92 Screening for High Blood Pressure: < First Hypertensive BP, F/U Documented > [ G8950] First Hypertensive Follow-up Interventions: Referral to alternative/primary care provider.
[2018-09-28 13:52] LABS: HEMATOCRIT 40.5 % (42.0-52.0); HEMOGLOBIN 12.9 gm/dl (14.0-18.0); MEAN CELL VOLUME 90.2 fl (81-97); MEAN CORPUSCULAR HEMOGLOBIN 28.7 pg (27-33); MEAN CORPUSCULAR HGB CONC 31.9 g/dl (32-36); PLATELET COUNT 467 K/uL (130-400); RED BLOOD COUNT 4.49 M/uL (4.40-5.70); RED CELL DISTRIBUTION WIDTH 14.7 % (11.5-14.5)
[2018-09-28 14:07] LABS: BLOOD UREA NITROGEN 19 mg/dL (6-20); CREATININE 0.6 mg/dL (0.7-1.2); EST GLOMERULAR FILTRATION RATE > 60 mL/min; TOTAL PROTEIN 6.7 g/dL (6.6-8.7)
[2018-09-28 14:09] LABS: GLUCOSE,RANDOM 104 mg/dL (74-109)
[2018-09-28 14:12] LABS: ALB/GLOB RATIO 1.6 (1.1-1.8); ALBUMIN 4.1 g/dL (4.0-5.0); ALKALINE PHOSPHATASE 94 U/L (40-129); ALT/SGPT 24 U/L (<41); AST/SGOT 15 U/L (10.0-50.0)
--- NOTE | 2018-09-29 08:37 | RADIOLOGY REPORT ---
EXAM: CHEST, TWO VIEWS HISTORY: PATIENT IS SHORT OF BREATH. HISTORY OF LUNG CANCER AND THROAT CANCER. TECHNIQUE: Two views of the chest are provided along with the comparison chest x-ray dated 02/12/18. Comparison CT scan of the chest dated 09/22/18 is provided. FINDINGS: The cardiomediastinal silhouette is within normal limits for size and contour. Tortuosity of the thoracic aorta is noted. Postoperative changes of the right lung are again identified. Blunting of the right costophrenic angle likely represents pleural thickening. Severe emphysematous changes are identified bilaterally. No new focal infiltrates, pleural effusions, or pneumothorax is identified. IMPRESSION: POSTOPERATIVE AND SEVERE EMPHYSEMATOUS CHANGES OF THE BILATERAL LUNGS ARE NOTED DISCUSSED ABOVE. NO NEW FOCAL INFILTRATES, PLEURAL EFFUSIONS, OR PNEUMOTHORAX IS NOTED. JOB NUMBER: [id number] MTDD
== END 2018-09-28 14:47 | disposition home or self-care (01) ==
LOC: ER 13:23
DX: J44.9 Chronic obstructive pulmonary disease, unspecified (principal); R06.00 Dyspnea, unspecified; Z85.818 Personal history of malignant neoplasm of other sites of lip, oral cavity, and pharynx; Z85.118 Personal history of other malignant neoplasm of bronchus and lung; F17.210 Nicotine dependence, cigarettes, uncomplicated
CPT/HCPCS: 71046; 80053; 85027; 93005; 93010; 99284

== ENCOUNTER 2018-12-29 09:58 | Emergency (ER) | payer MEDICARE, MEDICAID ==
[2018-12-29] MEDS ORDERED: IPRATROPIUM/ALBUTEROL (0.5MG/3MG) NEB INH ONE (10:25)
[2018-12-29] MEDS ORDERED: METHYLPREDNISOLONE PF 125MG/VIAL IM ONE (10:26)
--- NOTE | 2018-12-29 11:10 | Emergency Department Record ---
History of Present Illness - General Chief Complaint: Difficulty Breathing Stated Complaint: SUSANA Time Seen by Provider: 12/29/18 10:22 Source: Patient Mode of Arrival: Ambulatory Limitations: No limitations - History of Present Illness Initial Comments: pt here for sob. pt is on abx and prednisone. pt wears o2. MD Complaint: Cough, Shortness of breath Onset/Timin -: Hour(s) Known History Of: COPD Associated Symptoms: Denies other symptoms Treatments Prior to Arrival: Bronchodilator - Related Data Home Oxygen Therapy: Yes Home Oxygen Amount: 2 Liters Home Medications Medication Instructions Recorded Confirmed Last Taken Albuterol Sulfate [Ventolin Hfa] 1 - 2 puff IH .EVERY 4-6 HOURS PRN 12/29/1812/29/18 Amoxicillin/Potassium Clav 1 tab PO BID 12/29/18 12/29/18 12/29/18 [Amox-Clav 875-125 mg Tablet] Duloxetine HCl [Cymbalta] 30 mg PO BID 12/29/18 12/29/18 12/29/18 Fluticasone/Umeclidin/Vilanter 1 each IH DAILY 12/29/18 12/29/18 12/29/18 [Trelegy Ellipta 100-62.5-25] Meloxicam [Mobic] 15 mg PO DAILY 12/29/18 12/29/18 12/29/18 Methylprednisolone 4 mg PO ASDIR 12/29/18 12/29/18 12/29/18 Pantoprazole Sodium [Protonix] 20 mg PO DAILY 12/29/18 12/29/18 12/29/18 Previous Rx's Medication Instructions Recorded Trazodone HCl 50 mg PO QHS #0 02/24/16 Levothyroxine Sodium [Synthroid] 75 mcg PO DAILYTHY tablet 09/27/17 Allergies Allergy/AdvReac Type Severity Reaction Status Date / Time No Known Drug Allergies Allergy Verified 12/29/18 10:22 Travel Screening - Travel/Exposure Within Last 30 Days Have you traveled within the last 30 days?: No - Travel/Exposure Within Last Year Have you traveled outside the [place] in the last year?: No - Additonal Travel Details Have you been exposed to anyone with a communicable illness?: No Review of Systems Reviewed: No additional complaints except as noted below Constitutional: Reports: As per HPI. Denies: Chills, Fever, Malaise, Night sweats, Weakness, Weight change Eyes: Reports: As per HPI. Denies: Eye discharge, Eye pain, Photophobia, Vision change ENT: Reports: As per HPI. Denies: Congestion, Dental pain, Ear pain, Epistaxis , Hearing loss, Throat pain Respiratory: Reports: As per HPI, Cough, Dyspnea. Denies: Hemoptysis, Stridor, Wheezes Cardiovascular: Reports: As per HPI. Denies: Arrhythmia, Chest pain, Dyspnea on exertion, Edema, Murmurs, Orthopnea, Palpitations, Paroxysmal nocturnal dyspnea, Rheumatic Fever, Syncope Endocrine: Reports: As per HPI. Denies: Fatigue, Heat or cold intolerance, Polydipsia, Polyuria Gastrointestinal: Reports: As per HPI. Denies: Abdominal pain, Constipation, Diarrhea, Hematemesis, Hematochezia, Melena, Nausea, Vomiting Genitourinary: Reports: As per HPI. Denies: Dysuria, Frequency, Hematuria, Incontinence, Retention, Testicular pain, Testicular mass, Urgency Musculoskeletal: Reports: As per HPI. Denies: Arthralgia, Back pain, Gout, Joint swelling, Myalgia, Neck pain Skin: Reports: As per HPI. Denies: Bruising, Change in color, Change in hair/ nails, Lesions, Pruritus, Rash Neurological: Reports: As per HPI. Denies: Abnormal gait, Confusion, Headache, Numbness, Paresthesias, Seizure, Tingling, Tremors, Vertigo, Weakness Psychiatric: Reports: As per HPI. Denies: Anxiety, Auditory hallucinations, Depression, Homicidal thoughts, Suicidal thoughts, Visual hallucinations Hematological/Lymphatic: Reports: As per HPI. Denies: Anemia, Blood Clots, Easy bleeding, Easy bruising, Swollen glands Past Medical History - SOCIAL HISTORY Smoking Status: Former smoker Alcohol Use: None Drug Use: None - RESPIRATORY Hx Respiratory Disorders: Yes Hx Asthma: No Hx Bronchitis: No Hx COPD: Yes Hx Dyspnea: Yes Hx Pneumonia: Yes Hx Pulmonary Embolism: Yes Hx Sleep Apnea: Yes Hx Tuberculosis: No Hx of CPAP: Yes Comment:: Home O2 - 2 liter - CARDIOVASCULAR Hx Cardio Disorders: No Hx Abnormal EKG: No Hx Cardiac Cath: No Hx Chest Pain: No Hx CHF: No Hx Deep Vein Thrombosis: No Hx Edema: No Hx Heart Attack: No Hx Hypertension: No Hx Hypotension: No Hx Irregular Heartbeat: No Hx Palpitations: No Hx Pacemaker/Defib: No Hx Vascular Disease: No Hx Coronary Artery Disease: No Hx Coronary Artery Bypass Graft: No Hx Coronary Stent: No Comment:: Tolerance is fair as long as wearing O2 - NEURO Hx Neuro Disorders: No Hx Brain Tumor: No Hx CVA: No Hx Dementia: No Hx Dizziness: No Hx Headaches: No Hx of Migraines: No Hx Neuropathy: No Hx Parkinson's Disease: No Hx Seizures: No Hx Speech Problem: No Hx TIA: No Hx Weakness: No Hx Paralysis: No - GI Hx GI Disorders: Yes Hx Abdominal Pain: No Hx Celiac Disease: No Hx Crohn's Disease: No Hx Diverticulitis: Yes Hx GI Bleed: Yes Hx Reflux: Yes Hx Hepatitis/Jaundice: No Hx Hiatal Hernia: No Hx Irritable Bowel: No Hx Liver Disease: No Hx Nausea/Vomiting: No Hx Obstructive Bowel: Yes Hx Pancreatitis: No Hx Rectal Bleeding: No Hx Ulcer: No Hx Wt Loss/Wt Gain: No Hx Cirrhosis: No Hx of Polyps: Yes Comment:: colon perforation (d/t OIC) with resection, +C-diff - Hx Genitourinary Disorders: No Hx Bladder Problem: No Hx Dialysis: No Hx Kidney Stones: No Hx Prostate Problems: No Hx Renal Disease: No Hx UTI: No - ENDOCRINE Hx Endocrine Disorders: Yes Hx Diabetes: No Hx Thyroid Disease: Yes (hypo) - MUSCULOSKELETAL Hx Musculoskeletal Disorders: No Hx Arthritis: No Hx Back Injury: No Hx Fibromyalgia: No Hx Gout: No Hx Musculoskeletal Disease: No Hx Osteoporosis: No - PSYCH Hx Psych Problems: Yes Hx Anxiety: Yes Hx Behavior Problems: No Hx Depression: Yes Hx Emotional Abuse: No Hx Sexual Abuse: No Hx Suicide Attempt: No - HEMATOLOGY/ONCOLOGY Hx Hematology/Oncology Disorders: Yes Hx Anemia: Yes Hx Blood Disorders: No Hx Bruising: No Hx Cancer: Yes (2011 throat cancer, 2015 lung cancer with sx) Hx Chemotherapy: Yes (2012 throat) Hx Radiation Therapy: Yes (2012 throat) Hx Clotting Problems: No Hx Sickle Cell Disease: No Hx Unexplained Bleeding: No Hx Blood Transfusions: Yes Hx Blood Transfusion Reaction: No Comment:: removed top of right lung (lobe) Family Medical History Any Significant Family History?: No Hx Alcohol Use: Father, Brother/Sister Hx Anxiety: Children Hx Cancer: Father, Mother, Brother/Sister Hx Depression: Mother, Brother/Sister Hx Liver Disease: Brother/Sister Hx Resp Disorders: Brother/Sister Physical Exam - General General Appearance: Alert, Oriented x3, Cooperative, No acute distress - Head Head exam: Normal inspection - Eye Eye exam: Normal appearance, PERRL, EOMI Pupils: Normal accommodation - ENT ENT exam: Normal exam, Mucous membranes moist, Normal external ear exam, Normal orophraynx, TM's normal bilaterally Ear exam: Normal external inspection. negative: External canal tenderness Nasal Exam: Normal inspection. negative: Discharge, Sinus tenderness Mouth exam: Normal external inspection, Tongue normal Teeth exam: Normal inspection. negative: Dental caries Throat exam: Normal inspection. negative: Tonsillar erythema, Tonsillar exudate - Neck Neck exam: Normal inspection, Full ROM. negative: Tenderness - Respiratory Respiratory exam: Decreased breath sounds. negative: Respiratory distress - Cardiovascular Cardiovascular Exam: Regular rate, Normal rhythm, Normal heart sounds - GI/Abdominal GI/Abdominal exam: Soft, Normal bowel sounds. negative: Tenderness - Rectal Rectal exam: Deferred - exam: Deferred - Extremities Extremities exam: Normal inspection, Full ROM, Normal capillary refill. negative: Tenderness - Back Back exam: Reports: Normal inspection, Full ROM. Denies: Muscle spasm, Rash noted, Tenderness - Neurological Neurological exam: Alert, Normal gait, Oriented X3, Reflexes normal - Psychiatric Psychiatric exam: Normal affect, Normal mood - Skin Skin exam: Dry, Intact, Normal color, Warm Course Vital Signs 12/29/18 10:06 Temperature 98.3 F Pulse Rate 88 Respiratory 20 Rate Blood Pressure 128/96 Pulse Ox 97 Disposition Disposition: Discharge Clinical Impression: Pulmonary nodules Dyspnea Qualifiers: Dyspnea type: shortness of breath Qualified Code(s): R06.02 - Shortness of breath; R06.00 - Dyspnea, unspecified; R06.01 - Orthopnea COPD (chronic obstructive pulmonary disease) Qualifiers: COPD type: COPD with acute exacerbation Qualified Code(s): J44.1 - Chronic obstructive pulmonary disease with (acute) exacerbation Disposition: Home, Self-Care Condition: (1) Good Instructions: COPD (Chronic Obstructive Pulmonary Disease) (ED), Pulmonary Nodules (ED) Additional Instructions: follow up with family doctor. return sooner if worse. continue current meds Quality - Quality Measures Quality Measures: N/A - Blood Pressure Screening Does Patient Have Any of the Following: No Blood Pressure Classification: Hypertensive Reading Systolic Measurement: 128 Diastolic Measurement: 96 Screening for High Blood Pressure: < Pre-Hypertensive BP, F/U Documented > [ G8950] Pre-Hypertensive Follow-up Interventions: Follow-up with rescreen every year.
== END 2018-12-29 11:39 | disposition home or self-care (01) ==
LOC: ER 09:58
DX: J44.1 Chronic obstructive pulmonary disease with (acute) exacerbation (principal); R91.8 Other nonspecific abnormal finding of lung field; R06.01 Orthopnea; I10 Essential (primary) hypertension; Z99.81 Dependence on supplemental oxygen; Z87.891 Personal history of nicotine dependence
CPT/HCPCS: 71046; 94640; 96372; 99284; J2930

== ENCOUNTER 2019-01-04 13:40 | Day surgery (SDC) | payer MEDICARE, MEDICAID ==
[2019-01-04] MEDS ORDERED: LIDOCAINE 2% MDV (20MG/ML) 20ML VIAL IV ONE (13:41)
[2019-01-04] MEDS ORDERED: PHENYLEPHRINE HCL 10 MG/ML VIAL IVP ONE (13:41)
[2019-01-04] MEDS ORDERED: PROPOFOL 10 MG/ML VIAL IV ONE (13:41)
--- NOTE | 2019-01-05 10:10 | Operative Note ---
DATE OF SURGERY: 01/04/2019 OPERATION: COLONOSCOPY with polypectomy and hemoclip application. PREOPERATIVE DIAGNOSIS: History of anastomotic polyp. POSTOPERATIVE DIAGNOSES: 1. Anastomotic polyp. 2. Severe sigmoid diverticulosis. PROCEDURE: After informed consent was obtained from the patient, he was placed in the left lateral decubitus position in the endoscopy suite, sedated and monitored by the department of anesthesia. Digital rectal exam was unremarkable. A well-lubricated [id number] colonoscope was inserted into the rectum and advanced through a severely diverticulated sigmoid colon with marked spasm. The endoscope was gently advanced to the descending colon, transverse colon, ascending colon to the ileocolonic anastomosis. There was polypoid abnormality that abutted normal-appearing ileal tissue. With care, piecemeal polypectomy was performed of adenomatous-appearing tissue. The tissue was retrieved. One of the larger resected areas, wound was closed with a hemoclip. There was scant blood at the polypectomy site and it was felt that further tests would not be beneficial. As such, the ascending colon, transverse colon, descending colon, and sigmoid colon were inspected in retrograde fashion. No additional abnormalities were noted. J-turn views of the anorectum were unrevealing. The endoscope was straightened, the rectal ampulla deflated, and the endoscope was removed. RECOMMENDATIONS: We will await the results of tissue histology. The patient will follow a soft, low-fiber diet for the next 2 weeks. He will likely require repeat exam in 1 year given the fact he is not a surgical candidate with his other comorbidities being noted. As always, thank you for allowing me to participate in the healthcare of your patients. CC: VANESSA FERNANDEZ MD, FACP DO CLARISSA Chacko
== END 2019-01-04 15:45 | disposition home or self-care (01) ==
LOC: HOP 13:40
PROVIDERS: ATTEND Internal Medicine Gastroenterology
DX: Z12.11 Encounter for screening for malignant neoplasm of colon (principal); Z86.010 Personal history of colon polyps; D12.0 Benign neoplasm of cecum; K57.30 Diverticulosis of large intestine without perforation or abscess without bleeding; E03.9 Hypothyroidism, unspecified; J44.9 Chronic obstructive pulmonary disease, unspecified
CPT/HCPCS: J2370

== ENCOUNTER 2019-04-01 14:10 | Emergency (ER) | payer MEDICARE, MEDICAID ==
--- NOTE | 2019-04-01 15:05 | Emergency Department Record ---
History of Present Illness - General Chief complaint: ENT Stated complaint: WHITE SPOTS/SORE THROAT Time Seen by Provider: 04/01/19 15:04 Source: Patient Mode of Arrival: Ambulatory Limitations: No limitations - History of Present Illness Initial comments: pt c/o white spots and soreness in his mouth. he frequently takes abx. MD complaint: Difficulty swallowing, Sore throat Onset/Timin -: Days(s) Location: Throat, Other Severity: Moderate Severity scale (1-10): 2 Quality: Burning Consistency: Intermittent Improves with: None Worsens with: None Associated Symptoms: Other - Related Data Home Medications Medication Instructions Recorded Confirmed Last Taken Azithromycin [Zithromax] 250 mg PO DAILY 04/01/19 04/01/19 04/01/19 Previous Rx's Medication Instructions Recorded Trazodone HCl 50 mg PO QHS #0 02/24/16 Levothyroxine Sodium [Synthroid] 75 mcg PO DAILYTHY tablet 09/27/17 Nystatin 100,000 unit PO BID #60 oral.susp 04/01/19 Allergies Allergy/AdvReac Type Severity Reaction Status Date / Time No Known Drug Allergies Allergy Verified 04/01/19 14:32 Travel Screening - Travel/Exposure Within Last 30 Days Have you traveled within the last 30 days?: No - Travel/Exposure Within Last Year Have you traveled outside the [place] in the last year?: No - Additonal Travel Details Have you been exposed to anyone with a communicable illness?: No - Travel Symptoms Symptom Screening: None Review of Systems Reviewed: No additional complaints except as noted below Constitutional: Reports: As per HPI. Denies: Chills, Fever, Malaise, Night sweats, Weakness, Weight change Eyes: Reports: As per HPI. Denies: Eye discharge, Eye pain, Photophobia, Vision change ENT: Reports: As per HPI. Denies: Congestion, Dental pain, Ear pain, Epistaxis, Hearing loss, Throat pain Respiratory: Reports: As per HPI. Denies: Cough, Dyspnea, Hemoptysis, Stridor, Wheezes Cardiovascular: Reports: As per HPI. Denies: Arrhythmia, Chest pain, Dyspnea on exertion, Edema, Murmurs, Orthopnea, Palpitations, Paroxysmal nocturnal dyspnea, Rheumatic Fever, Syncope Endocrine: Reports: As per HPI. Denies: Fatigue, Heat or cold intolerance, Polydipsia, Polyuria Gastrointestinal: Reports: As per HPI. Denies: Abdominal pain, Constipation, Diarrhea, Hematemesis, Hematochezia, Melena, Nausea, Vomiting Genitourinary: Reports: As per HPI. Denies: Dysuria, Frequency, Hematuria, Incontinence, Retention, Testicular pain, Testicular mass, Urgency Musculoskeletal: Reports: As per HPI. Denies: Arthralgia, Back pain, Gout, Joint swelling, Myalgia, Neck pain Skin: Reports: As per HPI. Denies: Bruising, Change in color, Change in hair/nails, Lesions, Pruritus, Rash Neurological: Reports: As per HPI. Denies: Abnormal gait, Confusion, Headache, Numbness, Paresthesias, Seizure, Tingling, Tremors, Vertigo, Weakness Psychiatric: Reports: As per HPI. Denies: Anxiety, Auditory hallucinations, Depression, Homicidal thoughts, Suicidal thoughts, Visual hallucinations Hematological/Lymphatic: Reports: As per HPI. Denies: Anemia, Blood Clots, Easy bleeding, Easy bruising, Swollen glands Past Medical History - SOCIAL HISTORY Smoking Status: Former smoker Alcohol Use: None Drug Use: Heavy Drug Use Detail:: Marijuana - RESPIRATORY Hx Respiratory Disorders: Yes Hx Asthma: No Hx Bronchitis: No Hx COPD: Yes Hx Dyspnea: Yes Hx Pneumonia: Yes Hx Pulmonary Embolism: Yes Hx Sleep Apnea: Yes Hx Tuberculosis: No Hx of CPAP: Yes Comment:: Home O2 - 2 liter - CARDIOVASCULAR Hx Cardio Disorders: No Hx Abnormal EKG: No Hx Cardiac Cath: No Hx Chest Pain: No Hx CHF: No Hx Deep Vein Thrombosis: No Hx Edema: No Hx Heart Attack: No Hx Hypertension: No Hx Hypotension: No Hx Irregular Heartbeat: No Hx Palpitations: No Hx Pacemaker/Defib: No Hx Vascular Disease: No Hx Coronary Artery Disease: No Hx Coronary Artery Bypass Graft: No Hx Coronary Stent: No Comment:: Tolerance is fair as long as wearing O2 - NEURO Hx Neuro Disorders: No Hx Brain Tumor: No Hx CVA: No Hx Dementia: No Hx Dizziness: No Hx Headaches: No Hx of Migraines: No Hx Neuropathy: No Hx Parkinson's Disease: No Hx Seizures: No Hx Speech Problem: No Hx TIA: No Hx Weakness: No Hx Paralysis: No - GI Hx GI Disorders: Yes Hx Abdominal Pain: No Hx Celiac Disease: No Hx Crohn's Disease: No Hx Diverticulitis: Yes Hx GI Bleed: Yes Hx Reflux: Yes Hx Hepatitis/Jaundice: No Hx Hiatal Hernia: No Hx Irritable Bowel: No Hx Liver Disease: No Hx Nausea/Vomiting: No Hx Obstructive Bowel: Yes Hx Pancreatitis: No Hx Rectal Bleeding: No Hx Ulcer: No Hx Wt Loss/Wt Gain: No Hx Cirrhosis: No Hx of Polyps: Yes Comment:: colon perforation (d/t OIC) with resection, +C-diff - Hx Genitourinary Disorders: No Hx Bladder Problem: No Hx Dialysis: No Hx Kidney Stones: No Hx Prostate Problems: No Hx Renal Disease: No Hx UTI: No - ENDOCRINE Hx Endocrine Disorders: Yes Hx Diabetes: No Hx Thyroid Disease: Yes (hypo) - MUSCULOSKELETAL Hx Musculoskeletal Disorders: No Hx Arthritis: No Hx Back Injury: No Hx Fibromyalgia: No Hx Gout: No Hx Musculoskeletal Disease: No Hx Osteoporosis: No - PSYCH Hx Psych Problems: Yes Hx Anxiety: Yes Hx Behavior Problems: No Hx Depression: Yes Hx Emotional Abuse: No Hx Sexual Abuse: No Hx Suicide Attempt: No - HEMATOLOGY/ONCOLOGY Hx Hematology/Oncology Disorders: Yes Hx Anemia: Yes Hx Blood Disorders: No Hx Bruising: No Hx Cancer: Yes (2011 throat cancer, 2014 lung cancer with sx) Hx Chemotherapy: Yes (2012 throat) Hx Radiation Therapy: Yes (2012 throat) Hx Clotting Problems: No Hx Sickle Cell Disease: No Hx Unexplained Bleeding: No Hx Blood Transfusions: Yes Hx Blood Transfusion Reaction: No Comment:: removed top of right lung (lobe) Family Medical History Any Significant Family History?: Yes Hx Alcohol Use: Father, Brother/Sister Hx Anxiety: Children Hx Cancer: Father, Mother, Brother/Sister Hx Depression: Mother, Brother/Sister Hx Liver Disease: Brother/Sister Hx Resp Disorders: Brother/Sister Physical Exam - General General Appearance: Alert, Oriented x3, Cooperative, No acute distress - Head Head exam: Normal inspection - Eye Eye exam: Normal appearance, PERRL, EOMI Pupils: Normal accommodation - ENT ENT exam: Normal exam, Mucous membranes moist, Normal external ear exam, Normal orophraynx, TM's normal bilaterally Ear exam: Normal external inspection. negative: External canal tenderness Nasal Exam: Normal inspection. negative: Discharge, Sinus tenderness Mouth exam: Normal external inspection, Tongue normal, Other (thrush) Teeth exam: Normal inspection. negative: Dental caries Throat exam: Normal inspection, Tonsillar erythema. negative: Tonsillar exudate - Neck Neck exam: Normal inspection, Full ROM. negative: Tenderness - Respiratory Respiratory exam: Normal lung sounds bilaterally. negative: Respiratory distress - Cardiovascular Cardiovascular Exam: Regular rate, Normal rhythm, Normal heart sounds - GI/Abdominal GI/Abdominal exam: Soft, Normal bowel sounds. negative: Tenderness - Rectal Rectal exam: Deferred - exam: Deferred - Extremities Extremities exam: Normal inspection, Full ROM, Normal capillary refill. negative: Tenderness - Back Back exam: Reports: Normal inspection, Full ROM. Denies: Muscle spasm, Rash noted, Tenderness - Neurological Neurological exam: Alert, CN II-XII intact, Normal gait, Oriented X3 - Psychiatric Psychiatric exam: Normal affect, Normal mood - Skin Skin exam: Dry, Intact, Normal color, Warm Course Vital Signs 04/01/19 14:35 Temperature 98.3 F Pulse Rate 78 Respiratory 22 Rate Blood Pressure 111/70 Pulse Ox 96 Disposition Disposition: Discharge Clinical Impression: Thrush, oral Disposition: Home, Self-Care Condition: (1) Good Instructions: Oral Candidiasis (ED) Additional Instructions: follow up with family doctor. return sooner if worse. Prescriptions: Nystatin 100,000 unit PO BID #60 oral.susp Forms: Patient Portal Access Quality - Quality Measures Quality Measures: N/A - Blood Pressure Screening Does Patient Have Any of the Following: No Blood Pressure Classification: Normal BP Reading Systolic Measurement: 111 Diastolic Measurement: 70 Screening for High Blood Pressure: < Normal BP, F/U Not Required > [G8783]
== END 2019-04-01 15:37 | disposition home or self-care (01) ==
LOC: ER 14:10
DX: B37.0 Candidal stomatitis (principal); R13.10 Dysphagia, unspecified
CPT/HCPCS: 87880; 99282

== ENCOUNTER 2019-04-30 14:57 | Emergency (ER) | payer MEDICARE, MEDICAID ==
--- NOTE | 2019-04-30 15:53 | Emergency Department Record ---
History of Present Illness - General Chief Complaint: Shortness of breath Stated Complaint: SUSANA,BLOATED Time Seen by Provider: 04/30/19 15:20 Source: Patient Mode of Arrival: Wheelchair Limitations: No limitations - History of Present Illness Initial Comments: pt woke up in the night w a burning in his nose, sob, abd distended and a band around his chest. he sleeps w cpap. he denies any chest pain MD Complaint: Shortness of breath Improves With: Nothing Worsens With: Nothing Known History Of: COPD Associated Symptoms: Denies other symptoms - Related Data Home Oxygen Amount: 2 Liters Previous Rx's Medication Instructions Recorded Trazodone HCl 50 mg PO QHS #0 02/24/16 Levothyroxine Sodium [Synthroid] 75 mcg PO DAILYTHY tablet 09/27/17 Nystatin 100,000 unit PO BID #60 oral.susp 04/01/19 Allergies Allergy/AdvReac Type Severity Reaction Status Date / Time No Known Drug Allergies Allergy Verified 04/30/19 15:16 Travel Screening - Travel/Exposure Within Last 30 Days Have you traveled within the last 30 days?: No Review of Systems Reviewed: No additional complaints except as noted below Constitutional: Reports: As per HPI. Denies: Chills, Fever, Malaise, Night sweats, Weakness, Weight change Eyes: Reports: As per HPI. Denies: Eye discharge, Eye pain, Photophobia, Vision change ENT: Reports: As per HPI. Denies: Congestion, Dental pain, Ear pain, Epistaxis, Hearing loss, Throat pain Respiratory: Reports: As per HPI. Denies: Cough, Dyspnea, Hemoptysis, Stridor, Wheezes Cardiovascular: Reports: As per HPI. Denies: Arrhythmia, Chest pain, Dyspnea on exertion, Edema, Murmurs, Orthopnea, Palpitations, Paroxysmal nocturnal dyspnea, Rheumatic Fever, Syncope Endocrine: Reports: As per HPI. Denies: Fatigue, Heat or cold intolerance, Poly dipsia, Polyuria Gastrointestinal: Reports: As per HPI. Denies: Abdominal pain, Constipation, Diarrhea, Hematemesis, Hematochezia, Melena, Nausea, Vomiting Genitourinary: Reports: As per HPI. Denies: Dysuria, Frequency, Hematuria, Incontinence, Retention, Testicular pain, Testicular mass, Urgency Musculoskeletal: Reports: As per HPI. Denies: Arthralgia, Back pain, Gout, Joint swelling, Myalgia, Neck pain Skin: Reports: As per HPI. Denies: Bruising, Change in color, Change in hair/nails, Lesions, Pruritus, Rash Neurological: Reports: As per HPI. Denies: Abnormal gait, Confusion, Headache, Numbness, Paresthesias, Seizure, Tingling, Tremors, Vertigo, Weakness Psychiatric: Reports: As per HPI. Denies: Anxiety, Auditory hallucinations, Dep ression, Homicidal thoughts, Suicidal thoughts, Visual hallucinations Hematological/Lymphatic: Reports: As per HPI. Denies: Anemia, Blood Clots, Easy bleeding, Easy bruising, Swollen glands Past Medical History - SOCIAL HISTORY Smoking Status: Former smoker Alcohol Use: None Drug Use: None - RESPIRATORY Hx Respiratory Disorders: Yes Hx Asthma: No Hx Bronchitis: No Hx COPD: Yes Hx Dyspnea: Yes Hx Pneumonia: Yes Hx Pulmonary Embolism: Yes Hx Sleep Apnea: Yes Hx Tuberculosis: No Hx of CPAP: Yes Comment:: Home O2 - 2 liter - CARDIOVASCULAR Hx Cardio Disorders: No Hx Abnormal EKG: No Hx Cardiac Cath: No Hx Chest Pain: No Hx CHF: No Hx Deep Vein Thrombosis: No Hx Edema: No Hx Heart Attack: No Hx Hypertension: No Hx Hypotension: No Hx Irregular Heartbeat: No Hx Palpitations: No Hx Pacemaker/Defib: No Hx Vascular Disease: No Hx Coronary Artery Disease: No Hx Coronary Artery Bypass Graft: No Hx Coronary Stent: No Comment:: Tolerance is fair as long as wearing O2 - NEURO Hx Neuro Disorders: No Hx Brain Tumor: No Hx CVA: No Hx Dementia: No Hx Dizziness: No Hx Headaches: No Hx of Migraines: No Hx Neuropathy: No Hx Parkinson's Disease: No Hx Seizures: No Hx Speech Problem: No Hx TIA: No Hx Weakness: No Hx Paralysis: No - GI Hx GI Disorders: Yes Hx Abdominal Pain: No Hx Celiac Disease: No Hx Crohn's Disease: No Hx Diverticulitis: Yes Hx GI Bleed: Yes Hx Reflux: Yes Hx Hepatitis/Jaundice: No Hx Hiatal Hernia: No Hx Irritable Bowel: No Hx Liver Disease: No Hx Nausea/Vomiting: No Hx Obstructive Bowel: Yes Hx Pancreatitis: No Hx Rectal Bleeding: No Hx Ulcer: No Hx Wt Loss/Wt Gain: No Hx Cirrhosis: No Hx of Polyps: Yes Comment:: colon perforation (d/t OIC) with resection, +C-diff - Hx Genitourinary Disorders: No Hx Bladder Problem: No Hx Dialysis: No Hx Kidney Stones: No Hx Prostate Problems: No Hx Renal Disease: No Hx UTI: No - ENDOCRINE Hx Endocrine Disorders: Yes Hx Diabetes: No Hx Thyroid Disease: Yes (hypo) - MUSCULOSKELETAL Hx Musculoskeletal Disorders: No Hx Arthritis: No Hx Back Injury: No Hx Fibromyalgia: No Hx Gout: No Hx Musculoskeletal Disease: No Hx Osteoporosis: No - PSYCH Hx Psych Problems: Yes Hx Anxiety: Yes Hx Behavior Problems: No Hx Depression: Yes Hx Emotional Abuse: No Hx Sexual Abuse: No Hx Suicide Attempt: No - HEMATOLOGY/ONCOLOGY Hx Hematology/Oncology Disorders: Yes Hx Anemia: Yes Hx Blood Disorders: No Hx Bruising: No Hx Cancer: Yes (2011 throat cancer, 2014 lung cancer with sx) Hx Chemotherapy: Yes (2012 throat) Hx Radiation Therapy: Yes (2012 throat) Hx Clotting Problems: No Hx Sickle Cell Disease: No Hx Unexplained Bleeding: No Hx Blood Transfusions: Yes Hx Blood Transfusion Reaction: No Comment:: removed top of right lung (lobe) Family Medical History Any Significant Family History?: Yes Hx Alcohol Use: Father, Brother/Sister Hx Anxiety: Children Hx Cancer: Father, Mother, Brother/Sister Hx Depression: Mother, Brother/Sister Hx Liver Disease: Brother/Sister Hx Resp Disorders: Brother/Sister Physical Exam - General General Appearance: Alert, Oriented x3, Cooperative, Mild distress - Head Head exam: Normal inspection - Eye Eye exam: Normal appearance, PERRL, EOMI Pupils: Normal accommodation - ENT ENT exam: Normal exam, Mucous membranes moist, Normal external ear exam, Normal orophraynx Ear exam: Normal external inspection. negative: External canal tenderness Nasal Exam: Normal inspection. negative: Discharge, Sinus tenderness Mouth exam: Normal external inspection, Tongue normal Teeth exam: Normal inspection. negative: Dental caries Throat exam: Normal inspection. negative: Tonsillar erythema, Tonsillar exudate - Neck Neck exam: Normal inspection, Full ROM. negative: Tenderness - Respiratory Respiratory exam: Normal lung sounds bilaterally. negative: Respiratory distress - Cardiovascular Cardiovascular Exam: Regular rate, Normal rhythm, Normal heart sounds - GI/Abdominal GI/Abdominal exam: Soft, Normal bowel sounds. negative: Tenderness - Rectal Rectal exam: Deferred - exam: Deferred - Extremities Extremities exam: Normal inspection, Full ROM, Normal capillary refill. negative: Tenderness - Back Back exam: Reports: Normal inspection, Full ROM. Denies: Muscle spasm, Rash noted, Tenderness - Neurological Neurological exam: Alert, CN II-XII intact, Normal gait, Oriented X3, Reflexes normal - Psychiatric Psychiatric exam: Normal affect, Normal mood - Skin Skin exam: Dry, Intact, Normal color, Warm Course Vital Signs 04/30/19 15:11 Temperature 98.3 F Pulse Rate 99 H Respiratory 20 Rate Blood Pressure 157/101 Pulse Ox 97 - Reevaluation(s) Reevaluation #1: 04/30/19 19:03 pt did well entire stay Medical Decision Making - Lab Data Result diagrams: 04/30/19 15:30 04/30/19 15:30 Disposition Disposition: Discharge Clinical Impression: SOB (shortness of breath) Dyspnea Qualifiers: Dyspnea type: shortness of breath Qualified Code(s): R06.02 - Shortness of breath; R06.00 - Dyspnea, unspecified; R06.01 - Orthopnea Disposition: Home, Self-Care Condition: (1) Good Instructions: Dyspnea (ED) Additional Instructions: follow up with family doctor. return sooner if worse Forms: Patient Portal Access Quality - Quality Measures Quality Measures: N/A - Blood Pressure Screening Does Patient Have Any of the Following: No Blood Pressure Classification: Hypertensive Reading Systolic Measurement: 157 Diastolic Measurement: 101 Screening for High Blood Pressure: < First Hypertensive BP, F/U Documented > [G8950] First Hypertensive Follow-up Interventions: Follow-up with rescreen GT 1 day and LT 4 weeks.
[2019-04-30 15:57] LABS: ABSOLUTE NEUTROPHIL COUNT 9.73; BASO % 0.4 % (0-6); GRAN % 77.1 % (47-80); HEMATOCRIT 42.5 % (42.0-52.0); HEMOGLOBIN 13.4 gm/dl (14.0-18.0); LYMPH % 12.5 % (16-45); MEAN CELL VOLUME 88.7 fl (81-97); MEAN CORPUSCULAR HGB CONC 31.5 g/dl (32-36); MEAN PLATELET VOLUME 10.4 fl (7.4-10.4); PLATELET COUNT 448 K/uL (130-400); RED BLOOD COUNT 4.79 M/uL (4.40-5.70); RED CELL DISTRIBUTION WIDTH 16.3 % (11.5-14.5); WHITE BLOOD COUNT W/O DIFF 12.6 K/uL (4.2-12.2)
[2019-04-30 16:00] LABS: MEAN CORPUSCULAR HEMOGLOBIN 27.9 pg (27-33)
[2019-04-30 16:09] LABS: BLOOD UREA NITROGEN 12 mg/dL (6-20); CREATININE 0.7 mg/dL (0.7-1.2); EST GLOMERULAR FILTRATION RATE > 60 mL/min
[2019-04-30 16:10] LABS: TOTAL PROTEIN 7.1 g/dL (6.6-8.7)
[2019-04-30 16:12] LABS: GLUCOSE,RANDOM 123 mg/dL (74-109)
[2019-04-30 16:15] LABS: ALB/GLOB RATIO 1.5 (1.1-1.8); ALBUMIN 4.3 g/dL (4.0-5.0); ALKALINE PHOSPHATASE 104 U/L (40-129); ALT/SGPT 16 U/L (<41); AST/SGOT 20 U/L (10.0-50.0)
[2019-04-30 16:20] LABS: NTpro B-NATRIURETIC PEPTIDE 39.92 pg/mL (<125)
--- NOTE | 2019-05-01 21:28 | CT ANGIOGRAM REPORT ---
EXAM: CT ANGIOGRAM CHEST CTA w contrast HISTORY: DYSPNEA. ELEVATED D-DIMER. PREVIOUS LUNG CANCER AND LOBECTOMY. COMPARISON: 09/22/18. TECHNIQUE: Routine CT angiography images of the chest were obtained following intravenous administration of contrast. Amount and type of contrast in the medical record. 3D/MIP images were obtained for further assessment. FINDINGS: Heart is not enlarged. No pericardial effusion. Aorta enhances normally with contrast. There is mild atherosclerosis. There is somewhat high- grade narrowing involving the proximal left subclavian artery beginning just distal to the origin extending a length of approximately 3 cm. This is due to calcified and noncalcified atherosclerotic plaque. There are no central filling defects in the pulmonary arteries to suggest acute PE. Previously described thrombus within the right main pulmonary artery has decreased in the interval. No mediastinal or hilar lymph node enlargement. Lungs demonstrate severe emphysema. Previous surgical changes within the right lung from reported lobectomy. No focal consolidation or pleural effusion. Visualized upper abdomen demonstrates a probable hepatic hemangioma right lobe. Other small hypodensities elsewhere in the liver are probably cysts or hemangiomas. No acute osseous abnormality. IMPRESSION: 1. NO ACUTE INTRATHORACIC ABNORMALITY. SPECIFICALLY, NO EVIDENCE FOR ACUTE PE. 2. INTERVAL DECREASE OF THROMBUS WITHIN THE RIGHT MAIN PULMONARY ARTERY. 3. SEVERE PULMONARY EMPHYSEMA. 4. PREVIOUS SURGICAL CHANGES. 5. OTHER CHRONIC FINDINGS ABOVE. JOB NUMBER: [id number] [facility]
== END 2019-04-30 19:22 | disposition home or self-care (01) ==
LOC: ER 14:57
DX: R06.01 Orthopnea (principal); R79.89 Other specified abnormal findings of blood chemistry; R20.8 Other disturbances of skin sensation; R14.0 Abdominal distension (gaseous); R19.7 Diarrhea, unspecified; J44.9 Chronic obstructive pulmonary disease, unspecified; Z87.891 Personal history of nicotine dependence; Z99.81 Dependence on supplemental oxygen; C14.0 Malignant neoplasm of pharynx, unspecified; C78.01 Secondary malignant neoplasm of right lung
CPT/HCPCS: 71275; 80053; 83880; 84484; 85025; 85379; 93005; 93010; 99284

== ENCOUNTER 2019-05-17 13:01 | Observation (INO) | payer MEDICARE, MEDICAID ==
[2019-05-17] MEDS ORDERED: METHYLPREDNISOLONE PF 125MG/VIAL IVP ONE (13:03)
--- NOTE | 2019-05-17 13:06 | Emergency Department Record ---
History of Present Illness - General Stated Complaint: SUSANA Time Seen by Provider: 05/17/19 13:02 Source: Patient Mode of Arrival: Ambulatory Limitations: No limitations - History of Present Illness Initial Comments: 59 yo male presents with shortness of breath today. He has a history of cancer and COPD on home oxygen. He saw his PCP yesterday for a cough that is non productive. He was started on a ZPack. The patient reports his dyspnea worsened today. No fevers. No syncope. No hemoptysis. Dr Bob is his PCP. MD Complaint: Cough, Shortness of breath -: Days(s) Severity: Moderate Quality: Other Consistency: Constant Improves With: Nothing Worsens With: Coughing, Exertion Known History Of: COPD Context: Other Associated Symptoms: Cough Treatments Prior to Arrival: None - Related Data Home Medications Medication Instructions Recorded Confirmed Last Taken Azithromycin 1 tab PO DAILY 05/17/19 05/17/19 05/17/19 Prednisone [Prednisone 20Mg] 20 mg PO DAILY 05/17/19 05/17/19 05/17/19 Previous Rx's Medication Instructions Recorded Trazodone HCl 50 mg PO QHS #0 02/24/16 Levothyroxine Sodium [Synthroid] 75 mcg PO DAILYTHY tablet 09/27/17 Nystatin 100,000 unit PO BID #60 oral.susp 04/01/19 Allergies Allergy/AdvReac Type Severity Reaction Status Date / Time No Known Drug Allergies Allergy Verified 05/17/19 13:08 Review of Systems Constitutional: Denies: Chills, Fever, Malaise, Weakness Eyes: Denies: Eye discharge ENT: Denies: Congestion, Throat pain Respiratory: Reports: Cough, Dyspnea, Wheezes. Denies: Hemoptysis, Stridor Cardiovascular: Reports: Dyspnea on exertion. Denies: Chest pain, Edema, Palpitations, Syncope Endocrine: Denies: Fatigue, Polydipsia, Polyuria Gastrointestinal: Denies: Abdominal pain, Diarrhea, Nausea, Vomiting Genitourinary: Denies: Dysuria, Frequency, Hematuria Musculoskeletal: Denies: Arthralgia, Back pain Skin: Denies: Bruising, Change in color, Rash Neurological: Denies: Confusion, Headache Psychiatric: Denies: Anxiety Hematological/Lymphatic: Denies: Easy bleeding, Easy bruising Past Medical History - SOCIAL HISTORY Smoking Status: Former smoker Drug Use: None - RESPIRATORY Hx Respiratory Disorders: Yes Hx Asthma: No Hx Bronchitis: No Hx COPD: Yes Hx Dyspnea: Yes Hx Pneumonia: Yes Hx Pulmonary Embolism: Yes Hx Sleep Apnea: Yes Hx Tuberculosis: No Hx of CPAP: Yes Comment:: Home O2 - 2 liter - CARDIOVASCULAR Hx Cardio Disorders: No Hx Abnormal EKG: No Hx Cardiac Cath: No Hx Chest Pain: No Hx CHF: No Hx Deep Vein Thrombosis: No Hx Edema: No Hx Heart Attack: No Hx Hypertension: No Hx Hypotension: No Hx Irregular Heartbeat: No Hx Palpitations: No Hx Pacemaker/Defib: No Hx Vascular Disease: No Hx Coronary Artery Disease: No Hx Coronary Artery Bypass Graft: No Hx Coronary Stent: No Comment:: Tolerance is fair as long as wearing O2 - NEURO Hx Neuro Disorders: No Hx Brain Tumor: No Hx CVA: No Hx Dementia: No Hx Dizziness: No Hx Headaches: No Hx of Migraines: No Hx Neuropathy: No Hx Parkinson's Disease: No Hx Seizures: No Hx Speech Problem: No Hx TIA: No Hx Weakness: No Hx Paralysis: No - GI Hx GI Disorders: Yes Hx Abdominal Pain: No Hx Celiac Disease: No Hx Crohn's Disease: No Hx Diverticulitis: Yes Hx GI Bleed: Yes Hx Reflux: Yes Hx Hepatitis/Jaundice: No Hx Hiatal Hernia: No Hx Irritable Bowel: No Hx Liver Disease: No Hx Nausea/Vomiting: No Hx Obstructive Bowel: Yes Hx Pancreatitis: No Hx Rectal Bleeding: No Hx Ulcer: No Hx Wt Loss/Wt Gain: No Hx Cirrhosis: No Hx of Polyps: Yes Comment:: colon perforation (d/t OIC) with resection, +C-diff - Hx Genitourinary Disorders: No Hx Bladder Problem: No Hx Dialysis: No Hx Kidney Stones: No Hx Prostate Problems: No Hx Renal Disease: No Hx UTI: No - ENDOCRINE Hx Endocrine Disorders: Yes Hx Diabetes: No Hx Thyroid Disease: Yes (hypo) - MUSCULOSKELETAL Hx Musculoskeletal Disorders: No Hx Arthritis: No Hx Back Injury: No Hx Fibromyalgia: No Hx Gout: No Hx Musculoskeletal Disease: No Hx Osteoporosis: No - PSYCH Hx Psych Problems: Yes Hx Anxiety: Yes Hx Behavior Problems: No Hx Depression: Yes Hx Emotional Abuse: No Hx Sexual Abuse: No Hx Suicide Attempt: No - HEMATOLOGY/ONCOLOGY Hx Hematology/Oncology Disorders: Yes Hx Anemia: Yes Hx Blood Disorders: No Hx Bruising: No Hx Cancer: Yes (2012 throat cancer, 2015 lung cancer with sx) Hx Chemotherapy: Yes (2012 throat) Hx Radiation Therapy: Yes (2012 throat) Hx Clotting Problems: No Hx Sickle Cell Disease: No Hx Unexplained Bleeding: No Hx Blood Transfusions: Yes Hx Blood Transfusion Reaction: No Comment:: removed top of right lung (lobe) Family Medical History Hx Alcohol Use: Father, Brother/Sister Hx Anxiety: Children Hx Cancer: Father, Mother, Brother/Sister Hx Depression: Mother, Brother/Sister Hx Liver Disease: Brother/Sister Hx Resp Disorders: Brother/Sister Physical Exam - General General Appearance: Alert, Oriented x3, Cooperative, No acute distress Limitations: No limitations - Head Head exam: Atraumatic, Normal inspection - Eye Eye exam: Normal appearance, PERRL. negative: Conjunctival injection, Scleral icterus - ENT ENT exam: Normal exam, Mucous membranes moist Ear exam: Normal external inspection Nasal Exam: Normal inspection Mouth exam: Normal external inspection - Neck Neck exam: Normal inspection, Full ROM. negative: Lymphadenopathy - Respiratory Respiratory exam: Accessory muscle use, Decreased breath sounds, Prolonged expiratory, Wheezes. negative: Normal lung sounds bilaterally, Chest wall tenderness, Respiratory distress, Rhonchi - Cardiovascular Cardiovascular Exam: Regular rate, Normal rhythm, Normal heart sounds Peripheral Pulses: 2+: Radial (R), Radial (L) - GI/Abdominal GI/Abdominal exam: Soft. negative: Tenderness - Rectal Rectal exam: Deferred - exam: Deferred - Extremities Extremities exam: Normal inspection. negative: Pedal edema, Tenderness - Back Back exam: Denies: CVA tenderness (R), CVA tenderness (L) - Neurological Neurological exam: Alert, Oriented X3 - Psychiatric Psychiatric exam: Normal affect, Normal mood - Skin Skin exam: Dry, Intact, Normal color, Warm Course - Reevaluation(s) Reevaluation #1: 05/17/19 13:07 EKG #1: 12:57 Rate: 87 Rhythm: sinus Roundup: normal Intervals: normal ST segments: normal Prior: 04/30/19 no changes CTA of the chest was negative on 04/30/19 for PE. Severe emphysema noted. 05/17/19 14:48 N changes on the CMP 05/17/19 14:52 Cxr was reviewed by me Chronic interstitial changes consistent with significant COPD 05/17/19 16:04 Dr Ballesteros accepts the patient for admission Medical Decision Making - Lab Data Result diagrams: 05/17/19 13:45 05/17/19 13:45 Disposition Disposition: Admit Clinical Impression: COPD (chronic obstructive pulmonary disease) Qualifiers: COPD type: unspecified COPD Qualified Code(s): J44.9 - Chronic obstructive pulmonary disease, unspecified Dyspnea Qualifiers: Dyspnea type: unspecified Qualified Code(s): R06.00 - Dyspnea, unspecified Disposition: Still a Patient at [facility] Decision to Admit: Admit from ER Decision to Admit Date: 05/17/19 Decision to Admit Time: 15:30 Condition: (2) Stable Time of Disposition: 15:30 Quality - Quality Measures Quality Measures: N/A, Adult Bronchitis (18-64yr) - Adult Bronchitis Quality Measure: Measure #116: Avoidance of ABX w/Adult Bronchitis ICD10 Codes Entered: Yes Is patient being admitted: Yes Avoidance of ABX w/Bronchitis: <ABX neither prescribed nor dispensed> [4124F] Medical Reason For Rx: Chronic obstructive asthma - Blood Pressure Screening Does Patient Have Any of the Following: No Blood Pressure Classification: Hypertensive Reading Systolic Measurement: 130 Diastolic Measurement: 94 Screening for High Blood Pressure: < First Hypertensive BP, F/U Documented > [G8950] First Hypertensive Follow-up Interventions: Referral to alternative/primary care provider.
[2019-05-17] MEDS: IPRATROPIUM/ALBUTEROL (0.5MG/3MG) NEB INH ONE (13:09)
[2019-05-17] MEDS ORDERED: ALBUTEROL (0.5% CONCENTRATED) 2.5 MG/0.5 ML VIAL.NEB INH ONE (13:24)
[2019-05-17 14:20] LABS: HEMATOCRIT 43.2 % (42.0-52.0); HEMOGLOBIN 13.9 gm/dl (14.0-18.0); MEAN CELL VOLUME 88.5 fl (81-97); MEAN CORPUSCULAR HGB CONC 32.2 g/dl (32-36); PLATELET COUNT 404 K/uL (130-400); RED BLOOD COUNT 4.88 M/uL (4.40-5.70); RED CELL DISTRIBUTION WIDTH 16.5 % (11.5-14.5); WHITE BLOOD COUNT W/O DIFF 10.2 K/uL (4.2-12.2)
[2019-05-17 14:21] LABS: MEAN CORPUSCULAR HEMOGLOBIN 28.4 pg (27-33)
[2019-05-17 14:34] LABS: BLOOD UREA NITROGEN 14 mg/dL (6-20); CREATININE 0.7 mg/dL (0.7-1.2); EST GLOMERULAR FILTRATION RATE > 60 mL/min
[2019-05-17 14:35] LABS: TOTAL PROTEIN 7.4 g/dL (6.6-8.7)
[2019-05-17 14:37] LABS: GLUCOSE,RANDOM 123 mg/dL (74-109)
[2019-05-17 14:39] LABS: ALT/SGPT 17 U/L (<41)
[2019-05-17 14:40] LABS: ALB/GLOB RATIO 1.6 (1.1-1.8); ALBUMIN 4.5 g/dL (4.0-5.0); ALKALINE PHOSPHATASE 105 U/L (40-129); AST/SGOT 17 U/L (10.0-50.0)
[2019-05-17 14:44] LABS: ABSOLUTE NEUTROPHIL COUNT 9.41
[2019-05-17] MEDS ORDERED: ALBUTEROL SULFATE (0.083%) 2.5 MG/3 ML NEB INH PRN (16:07)
[2019-05-17] MEDS ORDERED: ACETAMINOPHEN 325 MG TAB PO PRN (16:07)
[2019-05-17] MEDS ORDERED: PNEUM 13-VAL/PF 0.5 ML IM ONE (16:41)
[2019-05-17] MEDS: METHYLPREDNISOLONE PF 125MG/VIAL IVP SCH ×2 (16:59→23:52)
[2019-05-17] MEDS: 0.9 % SODIUM CHLORIDE 1000ML 1,000 ML IV PRN (17:28)
[2019-05-17] MEDS: IPRATROPIUM/ALBUTEROL (0.5MG/3MG) NEB INH SCH ×2 (18:43→23:12)
[2019-05-17] MEDS: TRAZODONE 50 MG TABLET PO SCH (21:14)
[2019-05-17] MEDS: DULOXETINE HCL 30 MG CAPSULE.DR PO SCH ×2 (21:14→21:18)
[2019-05-17] MEDS: NYSTATIN 100,000 UNITS/ML 5ML CUP PO SCH (21:14)
[2019-05-18] MEDS: 0.9 % SODIUM CHLORIDE 1000ML 1,000 ML IV PRN ×2 (03:05→14:08)
[2019-05-18] MEDS: LEVOTHYROXINE SODIUM 75 MCG TABLET PO SCH (06:04)
[2019-05-18] MEDS: PANTOPRAZOLE SODIUM 40 MG TABLET PO SCH (06:04)
[2019-05-18] MEDS: IPRATROPIUM/ALBUTEROL (0.5MG/3MG) NEB INH SCH ×5 (06:07→22:17)
[2019-05-18] MEDS: METHYLPREDNISOLONE PF 125MG/VIAL IVP SCH (08:30)
[2019-05-18] MEDS ORDERED: VILANTER INH SCH (10:00)
[2019-05-18] MEDS ORDERED: UMECLIDIN INH SCH (10:00)
[2019-05-18] MEDS ORDERED: [UNRECOGNIZED DRUG - OTHER] INH SCH (10:00)
[2019-05-18] MEDS ORDERED: FLUTICASONE INH SCH (10:00)
--- NOTE | 2019-05-18 10:11 | History & Physical ---
History of Present Illness - Date of Service Date of Service for History & Physical: 05/18/19 - History of Present Illness Admitting Diagnosis: dyspnea, COPD exacerbation History of Present Illness: Mr. Mae is a 59 y/o male with history of COPD on 2 liters home oxygen here with acute exacerbation which began yesterday. The patient says that he feels li ke his symptoms began when he [place] the [place] and then by a friend and in both settings people were smoking. He states that he has quit smoking about 2 years ago but being around any amount of smoke can trigger his symptoms. He says that he uses his duonebs twice daily and his albuterol rescue inhaler as needed. On arrival to [facility] ED the patient had a reported respiratory rate of 28 but maintained oxygen saturations > 96% on 2 liters nasal cannula oxygen. The patient was afebrile, had no elevation of white bloodcell count and chest xray did not show any new acute process. The patient is admitted for COPD exacerbation. Vitals on admission: BP 123/94, HR 90, T 98.9, RR 28, O2 sats 96 % on 2 liters. CXR: negative for acute process, parenchymal scarring noted. PCP: Dr. Bob Travel Screening - Travel/Exposure Within Last 30 Days Have you traveled within the last 30 days?: No - Travel/Exposure Within Last Year Have you traveled outside the [place] in the last year?: No - Additonal Travel Details Have you been exposed to anyone with a communicable illness?: No - Travel Symptoms Symptom Screening: None Review of Systems Constitutional: Denies: Chills, Fever, Malaise, Weakness Eyes: Denies: Eye discharge ENT: Denies: Congestion, Throat pain Respiratory: Reports: Cough, Dyspnea, Wheezes. Denies: Hemoptysis, Stridor Cardiovascular: Reports: Dyspnea on exertion. Denies: Chest pain, Edema, Palpitations, Syncope Endocrine: Denies: Fatigue, Polydipsia, Polyuria Gastrointestinal: Denies: Abdominal pain, Diarrhea, Nausea, Vomiting Genitourinary: Denies: Dysuria, Frequency, Hematuria Musculoskeletal: Denies: Arthralgia, Back pain Skin: Denies: Bruising, Change in color, Rash Neurological: Denies: Confusion, Headache Psychiatric: Denies: Anxiety Hematological/Lymphatic: Denies: Easy bleeding, Easy bruising Past Medical History - SOCIAL HISTORY Smoking Status: Former smoker Drug Use: None - RESPIRATORY Hx Respiratory Disorders: Yes Hx Asthma: No Hx Bronchitis: No Hx COPD: Yes Hx Dyspnea: Yes Hx Pneumonia: Yes Hx Pulmonary Embolism: Yes Hx Sleep Apnea: Yes Hx Tuberculosis: No Hx of CPAP: Yes Comment:: Home O2 - 2 liter - CARDIOVASCULAR Hx Cardio Disorders: No Hx Abnormal EKG: No Hx Cardiac Cath: No Hx Chest Pain: No Hx CHF: No Hx Deep Vein Thrombosis: No Hx Edema: No Hx Heart Attack: No Hx Hypertension: No Hx Hypotension: No Hx Irregular Heartbeat: No Hx Palpitations: No Hx Pacemaker/Defib: No Hx Vascular Disease: No Hx Coronary Artery Disease: No Hx Coronary Artery Bypass Graft: No Hx Coronary Stent: No Comment:: Tolerance is fair as long as wearing O2 - NEURO Hx Neuro Disorders: No Hx Brain Tumor: No Hx CVA: No Hx Dementia: No Hx Dizziness: No Hx Headaches: No Hx of Migraines: No Hx Neuropathy: No Hx Parkinson's Disease: No Hx Seizures: No Hx Speech Problem: No Hx TIA: No Hx Weakness: No Hx Paralysis: No - GI Hx GI Disorders: Yes Hx Abdominal Pain: No Hx Celiac Disease: No Hx Crohn's Disease: No Hx Diverticulitis: Yes Hx GI Bleed: Yes Hx Reflux: Yes Hx Hepatitis/Jaundice: No Hx Hiatal Hernia: No Hx Irritable Bowel: No Hx Liver Disease: No Hx Nausea/Vomiting: No Hx Obstructive Bowel: Yes Hx Pancreatitis: No Hx Rectal Bleeding: No Hx Ulcer: No Hx Wt Loss/Wt Gain: No Hx Cirrhosis: No Hx of Polyps: Yes Comment:: colon perforation (d/t OIC) with resection, +C-diff - Hx Genitourinary Disorders: No Hx Bladder Problem: No Hx Dialysis: No Hx Kidney Stones: No Hx Prostate Problems: No Hx Renal Disease: No Hx UTI: No - ENDOCRINE Hx Endocrine Disorders: Yes Hx Diabetes: No Hx Thyroid Disease: Yes (hypo) - MUSCULOSKELETAL Hx Musculoskeletal Disorders: No Hx Arthritis: No Hx Back Injury: No Hx Fibromyalgia: No Hx Gout: No Hx Musculoskeletal Disease: No Hx Osteoporosis: No - PSYCH Hx Psych Problems: Yes Hx Anxiety: Yes Hx Behavior Problems: No Hx Depression: Yes Hx Emotional Abuse: No Hx Sexual Abuse: No Hx Suicide Attempt: No - HEMATOLOGY/ONCOLOGY Hx Hematology/Oncology Disorders: Yes Hx Anemia: Yes Hx Blood Disorders: No Hx Bruising: No Hx Cancer: Yes (2011 throat cancer, 2014 lung cancer with sx) Hx Chemotherapy: Yes (2012 throat) Hx Radiation Therapy: Yes (2012 throat) Hx Clotting Problems: No Hx Sickle Cell Disease: No Hx Unexplained Bleeding: No Hx Blood Transfusions: Yes Hx Blood Transfusion Reaction: No Comment:: removed top of right lung (lobe) Family Medical History Hx Alcohol Use: Father, Brother/Sister Hx Anxiety: Children Hx Cancer: Father, Mother, Brother/Sister Hx Depression: Mother, Brother/Sister Hx Liver Disease: Brother/Sister Hx Resp Disorders: Brother/Sister H&P Meds/Allergies - Allergies Allergies: Allergies Allergy/AdvReac Type Severity Reaction Status Date / Time No Known Drug Allergies Allergy Verified 05/17/19 13:08 - Home Medications Home Medications Medication Instructions Recorded Confirmed Last Taken Azithromycin 1 tab PO DAILY 05/17/19 05/17/19 05/17/19 Prednisone [Prednisone 20Mg] 20 mg PO DAILY 05/17/19 05/17/19 05/17/19 Previous Rx's Medication Instructions Recorded Trazodone HCl 50 mg PO QHS #0 02/24/16 Levothyroxine Sodium [Synthroid] 75 mcg PO DAILYTHY tablet 09/27/17 Nystatin 100,000 unit PO BID #60 oral.susp 04/01/19 - Active Medications Active Medications: Current Medications Acetaminophen (Tylenol 325mg) 650 mg PO Q6H PRN PRN Reason: PAIN - MILD(1-4)/FEVER Albuterol Sulfate (Albuterol Sulfate) 2.5 mg INH RESP.Q2H PRN PRN Reason: DIFFICULTY IN BREATHING Albuterol/Ipratropium (Duoneb) 3 ml INH RESP.Q4H.WA BOOKER Last Admin: 05/18/19 09:23 Dose: 3 ml Documented by: Azithromycin (Zithromax) 500 mg PO DAILY BOOKER Duloxetine HCl (Cymbalta) 30 mg PO BID BOOKER Last Admin: 05/17/19 21:18 Dose: Not Given Documented by: Enoxaparin Sodium (Lovenox) 40 mg SC DAILY [facility] Sodium Chloride () 1,000 mls @ 100 mls/hr IV .Q10H PRN PRN Reason: LARGE VOLUME IV Last Admin: 05/18/19 03:05 Dose: 100 mls/hr Documented by: Levothyroxine Sodium (Synthroid) 75 mcg PO DAILYTHY [facility] Last Admin: 05/18/19 06:04 Dose: 75 mcg Documented by: Meloxicam (Mobic) 15 mg PO DAILY [facility] Methylprednisolone Sodium Succinate (Solu-Medrol) 60 mg IVP Q8H [facility] Last Admin: 05/18/19 08:30 Dose: 60 mg Documented by: Montelukast Sodium (Singulair) 10 mg PO DAILY [facility] Non-Formulary Medication (Fluticasone/Umeclidin/Vilanter [Trelegy Ellipta 100-62.5-25]) 1 each INH DAILY [facility] Last Admin: 05/18/19 09:23 Dose: 1 each Documented by: Nystatin () 5 ml PO BID [facility] Last Admin: 05/17/19 21:14 Dose: 5 ml Documented by: Pantoprazole Sodium (Protonix) 40 mg PO DAILYAC [facility] Last Admin: 05/18/19 06:04 Dose: 40 mg Documented by: Trazodone HCl (Desyrel) 50 mg PO QHS [facility] Last Admin: 05/17/19 21:14 Dose: 50 mg Documented by: Vitamin D (Vitamin D3) 1,000 unit PO DAILY [facility] Physical Exam - Vital Signs Vital Signs: Vital Signs - Last 24 Hrs Temp Pulse Pulse Pulse Resp BP BP 05/18/19 09:25 93 H 18 05/18/19 07:49 20 05/18/19 07:33 97.8 F 89 18 112/76 05/18/19 06:09 84 16 05/17/19 23:13 91 H 16 05/17/19 21:00 16 05/17/19 20:34 97.8 F 95 H 22 132/98 05/17/19 18:45 88 16 05/17/19 18:44 90 16 05/17/19 16:34 84 24 05/17/19 15:58 98.1 F 73 19 111/82 05/17/19 15:41 106 H 16 130/94 05/17/19 13:42 104 H 26 H 05/17/19 13:14 98.9 F 90 20 123/94 05/17/19 13:10 90 28 H Pulse Ox 05/18/19 09:25 99 05/18/19 07:49 05/18/19 07:33 100 07/12/19 06:09 98 05/17/19 23:13 98 05/17/19 21:00 05/17/19 20:34 94 L 05/17/19 18:45 98 05/17/19 18:44 98 05/17/19 16:34 05/17/19 15:58 95 05/17/19 15:41 96 05/17/19 13:42 93 L 05/17/19 13:14 98 05/17/19 13:10 96 - General General Appearance: Alert, Oriented x3, Cooperative, No acute distress Limitations: No limitations - Head Head exam: Atraumatic, Normal inspection - Eye Eye exam: Normal appearance, PERRL. negative: Conjunctival injection, Scleral icterus - ENT ENT exam: Normal exam, Mucous membranes moist Ear exam: Normal external inspection Nasal Exam: Normal inspection Mouth exam: Normal external inspection - Neck Neck exam: Normal inspection, Full ROM. negative: Lymphadenopathy - Respiratory Respiratory exam: Accessory muscle use, Decreased breath sounds, Prolonged expiratory, Wheezes. negative: Normal lung sounds bilaterally, Chest wall tenderness, Respiratory distress, Rhonchi - Cardiovascular Cardiovascular Exam: Regular rate, Normal rhythm, Normal heart sounds Peripheral Pulses: 2+: Radial (R), Radial (L) - GI/Abdominal GI/Abdominal exam: Soft. negative: Tenderness - Rectal Rectal exam: Deferred - exam: Deferred - Extremities Extremities exam: Normal inspection. negative: Pedal edema, Tenderness - Back Back exam: Denies: CVA tenderness (R), CVA tenderness (L) - Neurological Neurological exam: Alert, Oriented X3 - Psychiatric Psychiatric exam: Normal affect, Normal mood - Skin Skin exam: Dry, Intact, Normal color, Warm Results - Labs Result Diagrams: 05/17/19 13:45 05/17/19 13:45 Labs Last 24 Hours: Laboratory Results - last 24 hr 05/17/19 05/17/19 13:45 13:45 WBC 10.2 RBC 4.88 Hgb 13.9 L Hct 43.2 MCV 88.5 MCH 28.4 MCHC 32.2 RDW 16.5 H Plt Count 404 H MPV 11.0 H Neutrophils % 92.0 H Eosinophils % Not Reportable Basophils % Not Reportable Absolute Neutrophils 9.41 Lymphocytes 7.0 L Monocytes 1.0 Sodium 141 Potassium 4.1 Chloride 101 Carbon Dioxide 24.0 Anion Gap 16.0 BUN 14 Creatinine 0.7 Estimated GFR > 60 Random Glucose 123 H Calcium 9.6 Total Bilirubin 0.30 AST 17 ALT 17 Alkaline Phosphatase 105 Total Protein 7.4 Albumin 4.5 Globulin 2.9 Albumin/Globulin Ratio 1.6 VTE H&P Assessment - Risk for VTE Risk for VTE: Yes Risk Level: High Risk Assessment Date: 05/18/19 Risk Assessment Time: 10:17 VTE Orders Placed or Will Be Placed: Yes Plan - Inpatient Certification Inpatient Certification: Admit to inpatient care: Based on my medical assessment, after consideration of patient's risk factors (age, co-morbidities and patient presenting symptoms and acuity), I expect that this patient will remain in the hospital greater than or equal to two midnights and that the services needed warrant inpatient care because: Patient Risk Factors: [] Estimated length of stay: [] The patient may reasonably be expected to be discharged or transferred to a hospital within 96 hours after admission to [facility]. Services needed: [] Post hospital care (if known): [] I certify that my determination is in accordance with my understanding of Medicare requirements for reasonable and necessary inpatient services. - Detailed Diagnosis and Plan (1) COPD with acute exacerbation Current Visit: No Status: Acute Base Code: J44.1 - CHRONIC OBSTRUCTIVE PULMONARY DISEASE W (ACUTE) EXACERBATION Comment: 05/18/19: - Exacerbation 2/2 to exposure to smoke. - CXR: suggestive of chronic lung changes but no acute pulmonary processes identified. - Titrate oxygen therapy to keep sats > 92%. - Duonebs Q4H BOOKER, Albuterol Q2H PRN - Discontinue IV Solumedrol and start Prednisone 40mg PO daily to taper at discharge. - Continuous cardiac monitoring. (2) Hypothyroid Current Visit: Yes Status: Acute Base Code: E03.9 - HYPOTHYROIDISM, UNSPECIFIED Comment: 05/18/19: - Resume home dose of Levothyroxine. (3) Depression Current Visit: Yes Status: Acute Base Code: F32.9 - MAJOR DEPRESSIVE DISORDER, SINGLE EPISODE, UNSPECIFIED Comment: 05/18/19: - Resume home doses of Cymblata and Trazodone. (4) History of lung cancer Current Visit: Yes Status: Resolved Base Code: Z85.118 - PERSONAL HISTORY OF MALIGNANT NEOPLASM OF BRONCHUS AND LUNG Comment: 05/18/19: - Hx of right thoracotomy and pneumonectomy due to lung ca. - S/P resection of lung mass 3 years ago. (5) DVT prophylaxis Current Visit: Yes Status: Acute Base Code: Z29.9 - ENCOUNTER FOR PROPHYLACTIC MEASURES, UNSPECIFIED Comment: 05/18/19: - Lovenox 40mg sq daily. (6) Full code status Current Visit: Yes Status: Acute Base Code: Z78.9 - OTHER SPECIFIED HEALTH STATUS Comment: 05/18/19: - The patient is full code.
[2019-05-18] MEDS: MELOXICAM 7.5 MG TABLET PO SCH (10:14)
[2019-05-18] MEDS: NYSTATIN 100,000 UNITS/ML 5ML CUP PO SCH ×2 (10:14→21:33)
[2019-05-18] MEDS: ENOXAPARIN 40 MG/0.4 ML SYR SC SCH (10:14)
[2019-05-18] MEDS: MONTELUKAST SODIUM 10MG TABLET PO SCH (10:14)
[2019-05-18] MEDS: DULOXETINE HCL 30 MG CAPSULE.DR PO SCH ×2 (10:14→21:34)
[2019-05-18] MEDS: AZITHROMYCIN 500 MG TABLET PO SCH (10:14)
[2019-05-18] MEDS: CHOLECALCIFEROL 1,000 UNIT TABLET PO SCH (10:15)
[2019-05-18] MEDS: TRAZODONE 50 MG TABLET PO SCH (21:33)
[2019-05-19] MEDS: PANTOPRAZOLE SODIUM 40 MG TABLET PO SCH (06:09)
[2019-05-19] MEDS: LEVOTHYROXINE SODIUM 75 MCG TABLET PO SCH (06:09)
[2019-05-19] MEDS: IPRATROPIUM/ALBUTEROL (0.5MG/3MG) NEB INH SCH ×2 (06:21→09:41)
[2019-05-19] MEDS ORDERED: PREDNISONE 20 MG TAB PO SCH (08:00)
--- NOTE | 2019-05-19 09:05 | Discharge Summary ---
Providers Discharge Summary Date: 05/19/19 Date of admission: 05/17/19 16:06 Attending physician: KELLY HERNANDES Primary care physician: Jim Bob Physical Exam - Vital Signs Vital Signs: Vital Signs - Last 24 Hrs Temp Pulse Pulse Resp BP Pulse Ox 05/19/19 07:29 98.6 F 83 19 118/81 97 05/19/19 06:21 88 16 98 05/18/19 22:17 86 16 98 05/18/19 21:17 97.5 F L 79 22 128/86 97 05/18/19 21:00 16 05/18/19 15:48 97.5 F L 92 H 19 121/75 95 05/18/19 14:03 84 18 99 05/18/19 11:22 98.1 F 102 H 20 95 05/18/19 09:25 93 H 18 99 - General General Appearance: Alert, Oriented x3, Cooperative, No acute distress Limitations: No limitations - Head Head exam: Atraumatic, Normal inspection - Eye Eye exam: Normal appearance, PERRL. negative: Conjunctival injection, Scleral icterus - ENT ENT exam: Normal exam, Mucous membranes moist Ear exam: Normal external inspection Nasal Exam: Normal inspection Mouth exam: Normal external inspection - Neck Neck exam: Normal inspection, Full ROM. negative: Lymphadenopathy - Respiratory Respiratory exam: Accessory muscle use, Decreased breath sounds, Prolonged expiratory, Wheezes. negative: Normal lung sounds bilaterally, Chest wall ten derness, Respiratory distress, Rhonchi - Cardiovascular Cardiovascular Exam: Regular rate, Normal rhythm, Normal heart sounds Peripheral Pulses: 2+: Radial (R), Radial (L) - GI/Abdominal GI/Abdominal exam: Soft. negative: Tenderness - Rectal Rectal exam: Deferred - exam: Deferred - Extremities Extremities exam: Normal inspection. negative: Pedal edema, Tenderness - Back Back exam: Denies: CVA tenderness (R), CVA tenderness (L) - Neurological Neurological exam: Alert, Oriented X3 - Psychiatric Psychiatric exam: Normal affect, Normal mood - Skin Skin exam: Dry, Intact, Normal color, Warm Hospitalization - Hospitalization Admission Diagnosis: dyspnea, COPD exacerbation - Problem List/Discharge Diagnosis (1) COPD with acute exacerbation Current Visit: No Status: Acute Base Code: J44.1 - CHRONIC OBSTRUCTIVE PULMONARY DISEASE W (ACUTE) EXACERBATION Comment: 05/19/19: - Exacerbation 2/2 to exposure to smoke. Patient much improved since yesterday no requiring oxygen support this morning. He is maintaining sats comfortably > 95% - CXR: suggestive of chronic lung changes but no acute pulmonary processes identified. - Titrate oxygen therapy to keep sats > 92%. - Duonebs Q4H BOOKER, Albuterol Q2H PRN - Discontinue IV Solumedrol and start Prednisone 40mg PO daily to taper at discharge. - Continuous cardiac monitoring did not show. (2) Hypothyroid Current Visit: Yes Status: Acute Base Code: E03.9 - HYPOTHYROIDISM, UNSPECIFIED Comment: 05/19/19: - Resume home dose of Levothyroxine. (3) Depression Current Visit: Yes Status: Acute Base Code: F32.9 - MAJOR DEPRESSIVE DISORDER, SINGLE EPISODE, UNSPECIFIED Comment: 05/19/19: - Resume home doses of Cymblata and Trazodone. (4) History of lung cancer Current Visit: Yes Status: Resolved Base Code: Z85.118 - PERSONAL HISTORY OF MALIGNANT NEOPLASM OF BRONCHUS AND LUNG Comment: 05/19/19: - Hx of right thoracotomy and pneumonectomy due to lung ca. - S/P resection of lung mass 3 years ago. (5) DVT prophylaxis Current Visit: Yes Status: Acute Base Code: Z29.9 - ENCOUNTER FOR PROPHYLACTIC MEASURES, UNSPECIFIED Comment: 05/19/19: - Lovenox 40mg sq daily. (6) Full code status Current Visit: Yes Status: Acute Base Code: Z78.9 - OTHER SPECIFIED HEALTH STATUS Comment: 05/19/19: - The patient is full code. - Hospitalization Course Hospital Course: Mr. Mae is a 59 y/o male with history of COPD on 2 liters home oxygen here with acute exacerbation which began yesterday. The patient says that he feels like his symptoms began when he [place] the [place] and then by a friend and in both settings people were smoking. He states that he has quit smoking about 2 years ago but being around any amount of smoke can trigger his symptoms. He says that he uses his duonebs twice daily and his albuterol rescue inhaler as needed. On arrival to [facility] ED the patient had a reported respiratory rate of 28 but maintained oxygen saturations > 96% on 2 liters nasal cannula oxygen. The patien t was afebrile, had no elevation of white bloodcell count and chest xray did not show any new acute process. The patient is admitted for COPD exacerbation. Vitals on admission: BP 123/94, HR 90, T 98.9, RR 28, O2 sats 96 % on 2 liters. CXR: negative for acute process, parenchymal scarring noted. 05/19: Evaluation prior to discharge - The patient is alert, awake and in no acute respiratory distress. He is maintaining saturations without oxygen at this time. Overnight he continued to received Duoneb treatment but had no other respiratory complaints. The patient is stable for discharge and will be sent home on tapering dose of Prednisone and advised to compete Azithromycin as prescribed by his PCP. He is to follow up with Dr. Bob early next week for post-hospital review. PCP: Dr. Bob Procedures: Imaging and X-Rays 05/17/19 14:20 CHEST 2 VIEWS [RAD] Stat Cardiology Procedures 05/17/19 13:03 Attending Anesthesiologist NOW EKG NOW 05/17/19 16:07 Attending Anesthesiologist .Continuous Attending Anesthesiologist NOW Abnormal Labs: Abnormal Lab Results 05/17/19 05/17/19 Range/Units 13:45 13:45 Hgb 13.9 L (14.0-18.0) gm/dl RDW 16.5 H (11.5-14.5) % Plt Count 404 H (130-400) K/uL MPV 11.0 H (7.4-10.4) fl Neutrophils % 92.0 H (47-80) % Lymphocytes 7.0 L (16-45) % Random Glucose 123 H (74-109) mg/dL Condition at Discharge: (2) Stable Discharge Medications - Discharge Medications Prescriptions: Prednisone [Prednisone 20Mg] 40 mg PO DAILY #6 tab Home Medications: Ambulatory Orders Trazodone HCl 50 mg PO QHS #0 02/24/16 [Last Taken 05/17/19] Levothyroxine Sodium [Synthroid] 75 mcg PO DAILYTHY tablet 09/27/17 [Last Taken 05/17/19] Cholecalciferol (Vitamin D3) [Vitamin D3] 1,000 unit PO DAILY 12/14/17 [Last Taken 05/17/19] Montelukast Sodium 10 mg PO DAILY 02/12/18 [Last Taken 05/17/19] Albuterol Sulfate [Ventolin Hfa] 1 - 2 puff IH .EVERY 4-6 HOURS PRN 12/29/18 [Last Taken 05/17/19] Duloxetine HCl [Cymbalta] 30 mg PO BID 12/29/18 [Last Taken 05/17/19] Fluticasone/Umeclidin/Vilanter [Trelegy Ellipta 100-62.5-25] 1 each IH DAILY 12/29/18 [Last Taken 05/17/19] Meloxicam [Mobic] 15 mg PO DAILY 12/29/18 [Last Taken 05/17/19] Pantoprazole Sodium [Protonix] 20 mg PO DAILY 12/29/18 [Last Taken 05/17/19] Nystatin 100,000 unit PO BID #60 oral.susp 04/01/19 [Last Taken 05/17/19] Azithromycin 1 tab PO DAILY 05/17/19 [Last Taken 05/17/19] Prednisone [Prednisone 20Mg] 20 mg PO DAILY 05/17/19 [Last Taken 05/17/19] Prednisone [Prednisone 20Mg] 40 mg PO DAILY #6 tab 05/19/19 [Last Taken Unknown] Discharge Plan - Discharge Instructions Activity at Discharge: Wear Oxygen At All Times Diet at Discharge: Regular Diet Instructions: COPD (Chronic Obstructive Pulmonary Disease) (DC), Dyspnea (DC), How Your Lungs Work (DC), Chronic Lung Disease and Infection Prevention (DC), Energy Conservation Techniques (DC), Dyspnea Scale and Exercise (DC), Nutrition Guidelines for People with COPD (DC), Shortness of Breath (DC) Additional Instructions: Activity: Wear Oxygen At All Times Diet: Regular Diet Follow Up: Follow up with Dr. Bob within 5-7 days of discharge. Additional: Continue with Duonebs BID as prescribed. Taper dose of Prednisone: 40mg, 40mg, 20mg, 20mg Wear oxygen to keep your saturations above 92% Follow up with Dr. Bob within 5-7 days of discharge. Quality Measures - Quality Measures Quality Measures: Documentation of Current Medications in Medical Record, Screening for High Blood Pressure and F/U Documented - Current Medications Quality Measure: Measure #130: Documentation of Current Medications Documentation of Current Medications: <Current Medications Documented/Reviewed> [[id number]] - Blood Pressure Screening Quality Measure: Screening for High Blood Pressure and Follow-Up Documented Does Patient Have Any of the Following: No Blood Pressure Classification: Hypertensive Reading Systolic Measurement: 130 Diastolic Measurement: 94 Screening for High Blood Pressure: < Pre-Hypertensive BP, F/U Documented > [[id number]] Pre-Hypertensive Follow-up Interventions: Lifestyle modifications., Referral to alternative/primary care provider. Lifestyle Modification: Weight Reduction, Increased Physical Activity - Elder Abuse Suspicion Index EASI Reference Information: Petra ANAND, Shelly C, Greg D, Luiz Peralta.Development and validation of a tool to assist physicians identification of elder abuse: The Elder Abuse Suspicion Index (EASI ). Journal of Elder Abuse and Neglect, 2008; 20 (3): 276-300.
[2019-05-19] MEDS: CHOLECALCIFEROL 1,000 UNIT TABLET PO SCH (10:15)
[2019-05-19] MEDS: AZITHROMYCIN 500 MG TABLET PO SCH (10:15)
[2019-05-19] MEDS: MELOXICAM 7.5 MG TABLET PO SCH (10:15)
[2019-05-19] MEDS: ENOXAPARIN 40 MG/0.4 ML SYR SC SCH (10:16)
[2019-05-19] MEDS: MONTELUKAST SODIUM 10MG TABLET PO SCH (10:16)
[2019-05-19] MEDS: DULOXETINE HCL 30 MG CAPSULE.DR PO SCH (10:18)
--- NOTE | 2019-05-20 00:39 | RADIOLOGY REPORT ---
EXAM: CHEST 2 VIEWS HISTORY: DIFFICULTY IN BREATHING. LUNG AND THROAT CARCINOMA HISTORY. TECHNIQUE: Upright PA and lateral views of the chest. COMPARISON: Two-view chest radiographic examination dated 12/29/2018. CT angiogram of the chest dated 04/30/2019. FINDINGS: The heart is not enlarged. No pulmonary venous hypertension is seen. The thoracic aorta is tortuous and atherosclerotic. There is mild decrease in the right hemithorax volume loss redemonstrated. There is associated right costophrenic angle blunting and right hemidiaphram. This appearance is unchanged since 12/29/2018 and this likely relates to partial pneumonectomy with basilar pleural and parenchymal scarring. Bilateral emphysema persists. Biapical pleural and parenchymal scarring again identified, left slightly greater than right. There is a subtle nodular opacity projecting at the lateral mid to lower left hemithorax level on the frontal view measuring 6 mm. This likely relates to a nipple shadow, as no nodule is demonstrated in this region on recent CTA chest examination. No new lung consolidation. Scarring is again noted in the right suprahilar lung. No lytic or blastic bone lesion. IMPRESSION: 1. POST RIGHT THORACOTOMY AND PARTIAL PNEUMONECTOMY CHANGES REDEMONSTRATED. 2. BILATERAL EMPHYSEMA. PLEURAL AND PARENCHYMAL SCARRING AGAIN SUGGESTED IN THE RIGHT HEMITHORAX BASE, STABLE SINCE 12/29/2018. BIAPICAL PLEURAL AND PARENCHYMAL SCARRING. 3. NO CONVINCING EVIDENCE OF ACUTE INTRATHORACIC PROCESS. JOB NUMBER: [id number] [facility]
== END 2019-05-19 10:40 | disposition home or self-care (01) ==
LOC: ER 13:01 → MEDSURG 16:06 → INTOOBSV 16:06
PROVIDERS: ADMIT Internal Medicine; ATTEND Internal Medicine
DX: J44.1 Chronic obstructive pulmonary disease with (acute) exacerbation (principal); R05 Cough; Z99.81 Dependence on supplemental oxygen; D64.9 Anemia, unspecified; E03.9 Hypothyroidism, unspecified; G47.33 Obstructive sleep apnea (adult) (pediatric); K21.9 Gastro-esophageal reflux disease without esophagitis; F32.9 Major depressive disorder, single episode, unspecified; Z87.891 Personal history of nicotine dependence; Z85.118 Personal history of other malignant neoplasm of bronchus and lung; Z85.818 Personal history of malignant neoplasm of other sites of lip, oral cavity, and pharynx; Z86.711 Personal history of pulmonary embolism; Z86.19 Personal history of other infectious and parasitic diseases
CPT/HCPCS: 80053; 85027; 71046; 94640 ×5; 94664; 94761; 93005; 93010; 94760 ×2; G0378 ×3; J7512; J3490 ×2; 96374; 99217; 99220; 99285; J1650; J2930

== ENCOUNTER 2019-10-04 09:58 | Emergency (ER) | payer MEDICARE, MEDICAID ==
[2019-10-04] MEDS ORDERED: METHYLPREDNISOLONE PF 125MG/VIAL IVP ONE (10:12)
[2019-10-04] MEDS ORDERED: IPRATROPIUM/ALBUTEROL (0.5MG/3MG) NEB INH ONE (10:13)
--- NOTE | 2019-10-04 10:23 | Emergency Department Record ---
History of Present Illness - General Chief Complaint: Difficulty Breathing Stated Complaint: SUSANA, BODY ACHE, CHILLS Time Seen by Provider: 10/04/19 10:09 Source: Patient Mode of Arrival: Ambulatory Limitations: No limitations - History of Present Illness Initial Comments: The patient is here due to a one week hx of cough and congestion with mild SOB. He has had a slight increase in his sputum production but denies any chest pain, fever, VUONG, AP or back pain. The patient has a long hx of COPD and is on home O2 2 liters. MD Complaint: Cough, Shortness of breath Onset/Timin -: Days(s) Severity: Moderate Severity scale (1-10): 1 Quality: Aching Consistency: Constant Associated Symptoms: Denies other symptoms Treatments Prior to Arrival: Bronchodilator - Related Data Home Oxygen Therapy: Yes Home Oxygen Amount: 2 Liters Home Medications Medication Instructions Recorded Confirmed Last Taken Atorvastatin Calcium [Lipitor] 20 mg PO DAILY 10/04/19 10/04/19 1 Day Ago ~10/03/19 Previous Rx's Medication Instructions Recorded Trazodone HCl 50 mg PO QHS #0 02/24/16 Levothyroxine Sodium [Synthroid] 75 mcg PO DAILYTHY tablet 09/27/17 Nystatin 100,000 unit PO BID #60 oral.susp 04/01/19 Prednisone [Prednisone 20Mg] 40 mg PO DAILY #8 tab 10/04/19 Allergies Allergy/AdvReac Type Severity Reaction Status Date / Time No Known Drug Allergies Allergy Verified 10/04/19 10:04 Travel Screening - Travel/Exposure Within Last 30 Days Have you traveled within the last 30 days?: No - Travel/Exposure Within Last Year Have you traveled outside the [place] in the last year?: No - Additonal Travel Details Have you been exposed to anyone with a communicable illness?: No - Travel Symptoms Symptom Screening: None Review of Systems Constitutional: Denies: Chills, Fever Eyes: Denies: Eye discharge ENT: Reports: Congestion Respiratory: Reports: Cough, Dyspnea. Denies: Hemoptysis Cardiovascular: Denies: Chest pain Endocrine: Reports: Fatigue Gastrointestinal: Denies: Nausea Genitourinary: Denies: Dysuria Musculoskeletal: Denies: Arthralgia Skin: Denies: Bruising Past Medical History - SOCIAL HISTORY Smoking Status: Former smoker Alcohol Use: None Drug Use: None - RESPIRATORY Hx Respiratory Disorders: Yes Hx Asthma: No Hx Bronchitis: No Hx COPD: Yes Hx Dyspnea: Yes Hx Pneumonia: Yes Hx Pulmonary Embolism: Yes Hx Sleep Apnea: Yes Hx Tuberculosis: No Hx of CPAP: Yes Comment:: Home O2 - 2 liter - CARDIOVASCULAR Hx Cardio Disorders: No Hx Abnormal EKG: No Hx Cardiac Cath: No Hx Chest Pain: No Hx CHF: No Hx Deep Vein Thrombosis: No Hx Edema: No Hx Heart Attack: No Hx Hypertension: No Hx Hypotension: No Hx Irregular Heartbeat: No Hx Palpitations: No Hx Pacemaker/Defib: No Hx Vascular Disease: No Hx Coronary Artery Disease: No Hx Coronary Artery Bypass Graft: No Hx Coronary Stent: No Comment:: Tolerance is fair as long as wearing O2 - NEURO Hx Neuro Disorders: No Hx Brain Tumor: No Hx CVA: No Hx Dementia: No Hx Dizziness: No Hx Headaches: No Hx of Migraines: No Hx Neuropathy: No Hx Parkinson's Disease: No Hx Seizures: No Hx Speech Problem: No Hx TIA: No Hx Weakness: No Hx Paralysis: No - GI Hx GI Disorders: Yes Hx Abdominal Pain: No Hx Celiac Disease: No Hx Crohn's Disease: No Hx Diverticulitis: Yes Hx GI Bleed: Yes Hx Reflux: Yes Hx Hepatitis/Jaundice: No Hx Hiatal Hernia: No Hx Irritable Bowel: No Hx Liver Disease: No Hx Nausea/Vomiting: No Hx Obstructive Bowel: Yes Hx Pancreatitis: No Hx Rectal Bleeding: No Hx Ulcer: No Hx Wt Loss/Wt Gain: No Hx Cirrhosis: No Hx of Polyps: Yes Comment:: colon perforation (d/t OIC) with resection, +C-diff - Hx Genitourinary Disorders: No Hx Bladder Problem: No Hx Dialysis: No Hx Kidney Stones: No Hx Prostate Problems: No Hx Renal Disease: No Hx UTI: No - ENDOCRINE Hx Endocrine Disorders: Yes Hx Diabetes: No Hx Thyroid Disease: Yes (hypo) - MUSCULOSKELETAL Hx Musculoskeletal Disorders: No Hx Arthritis: No Hx Back Injury: No Hx Fibromyalgia: No Hx Gout: No Hx Musculoskeletal Disease: No Hx Osteoporosis: No - PSYCH Hx Psych Problems: Yes Hx Anxiety: Yes Hx Behavior Problems: No Hx Depression: Yes Hx Emotional Abuse: No Hx Sexual Abuse: No Hx Suicide Attempt: No - HEMATOLOGY/ONCOLOGY Hx Hematology/Oncology Disorders: Yes Hx Anemia: Yes Hx Blood Disorders: No Hx Bruising: No Hx Cancer: Yes (2011 throat cancer, 2015 lung cancer with sx) Hx Chemotherapy: Yes (2012 throat) Hx Radiation Therapy: Yes (2012 throat) Hx Clotting Problems: No Hx Sickle Cell Disease: No Hx Unexplained Bleeding: No Hx Blood Transfusions: Yes Hx Blood Transfusion Reaction: No Comment:: removed top of right lung (lobe) Family Medical History Any Significant Family History?: Yes Hx Alcohol Use: Father, Brother/Sister Hx Anxiety: Children Hx Cancer: Father, Mother, Brother/Sister Hx Depression: Mother, Brother/Sister Hx Liver Disease: Brother/Sister Hx Resp Disorders: Brother/Sister Physical Exam - General General Appearance: Alert, Oriented x3, Cooperative, No acute distress (The patient is in no respiratory distress and is speaking in full sentences.) - Head Head exam: Atraumatic, Normocephalic, Normal inspection - Eye Eye exam: Normal appearance, PERRL - ENT Throat exam: Normal inspection. negative: Tonsillar erythema, Tonsillar exudate - Neck Neck exam: Normal inspection, Full ROM. negative: Tenderness - Respiratory Respiratory exam: Decreased breath sounds. negative: Normal lung sounds bilaterally, Accessory muscle use, Chest wall tenderness, Prolonged expiratory, Respiratory distress, Rhonchi, Stridor, Wheezes - Cardiovascular Cardiovascular Exam: Regular rate, Normal rhythm, Normal heart sounds - GI/Abdominal GI/Abdominal exam: Soft, Normal bowel sounds. negative: Tenderness - Extremities Extremities exam: Normal inspection, Full ROM, Normal capillary refill. negative: Tenderness - Neurological Neurological exam: Alert. negative: Motor sensory deficit Course Vital Signs 10/04/19 10:06 Temperature 97.6 F Pulse Rate [ 82 Pulse Ox Probe] Respiratory 18 Rate Blood Pressure 159/85 [Right Arm] Pulse Ox 98 - Reevaluation(s) Reevaluation #1: The patient is doing very well at this time. His breathing is back to normal and he is speaking in full sentences with no coughing or SUSANA. On exam his lung aeration is improved also with no wheezing. I did discuss the normal CXR for him and the need to continue Prednisone for home. 10/04/19 11:09 Medical Decision Making - Lab Data Result diagrams: 10/04/19 10:34 10/04/19 10:34 Disposition Disposition: Discharge Clinical Impression: COPD with acute exacerbation Disposition: Home, Self-Care Condition: (1) Good Instructions: Dyspnea (ED) Additional Instructions: Please continue your regular medicines and please see your doctor early next week for recheck. Continue the Prednisone tomorrow and use your Nebulizer for the next 2 days. Return to the ER for any worsening symptoms. Prescriptions: Prednisone [Prednisone 20Mg] 40 mg PO DAILY #8 tab Forms: Patient Portal Access Time of Disposition: 11:20 Quality - Quality Measures Quality Measures: Adult Bronchitis (18-64yr) - Adult Bronchitis Quality Measure: Measure #116: Avoidance of ABX w/Adult Bronchitis ICD10 Codes Entered: Yes View Details: Yes Is patient being admitted: No Avoidance of ABX w/Bronchitis: <ABX neither prescribed nor dispensed> [4124F] - Blood Pressure Screening View Details: Yes Does Patient Have Any of the Following: No Blood Pressure Classification: Pre-Hypertensive BP Reading Systolic Measurement: 159 Diastolic Measurement: 85 Screening for High Blood Pressure: < Pre-Hypertensive BP, F/U Documented > [G8950] Pre-Hypertensive Follow-up Interventions: Referral to alternative/primary care provider.
[2019-10-04 10:40] LABS: ABSOLUTE NEUTROPHIL COUNT 11.76; HEMATOCRIT 38.4 % (42.0-52.0); HEMOGLOBIN 12.2 gm/dl (14.0-18.0); MEAN CELL VOLUME 90.4 fl (81-97); MEAN CORPUSCULAR HEMOGLOBIN 28.7 pg (27-33); MEAN CORPUSCULAR HGB CONC 31.8 g/dl (32-36); PLATELET COUNT 427 K/uL (130-400); RED BLOOD COUNT 4.25 M/uL (4.40-5.70); RED CELL DISTRIBUTION WIDTH 13.3 % (11.5-14.5); WHITE BLOOD COUNT W/O DIFF 13.1 K/uL (4.2-12.2)
[2019-10-04 10:48] LABS: PLATELET ESTIMATE NORMAL (NORMAL)
[2019-10-04 10:50] LABS: BLOOD UREA NITROGEN 9 mg/dL (6-20); CREATININE 0.6 mg/dL (0.7-1.2); EST GLOMERULAR FILTRATION RATE > 60 mL/min
[2019-10-04 10:51] LABS: TOTAL PROTEIN 7.3 g/dL (6.6-8.7)
[2019-10-04 10:53] LABS: GLUCOSE,RANDOM 105 mg/dL (74-109)
[2019-10-04 10:55] LABS: ALT/SGPT 9 U/L (<41)
[2019-10-04 10:56] LABS: ALB/GLOB RATIO 1.2 (1.1-1.8); ALKALINE PHOSPHATASE 80 U/L (40-129); AST/SGOT 19 U/L (10.0-50.0)
--- NOTE | 2019-10-04 11:04 | RADIOLOGY REPORT ---
EXAMINATION: Two View Chest Radiographs EXAM DATE: 10/04/2019 10:53 AM TECHNIQUE: Frontal and lateral views INDICATION: cough COMPARISON: 05/17/2019, 04/30/2019, 12/29/2018 ENCOUNTER: Not applicable FINDINGS: Right hemithorax postsurgical changes from partial pulmonary resection with stable pleural and parenc hymal scarring and blunting of the costophrenic sulcus. There is associated right hemithorax volume l oss. Pulmonary emphysema with relative upper lobe lucency and coarse pulmonary markings. No new regions of consolidation. Normal heart size. IMPRESSION: 1. Severe pulmonary emphysema; no new regions of consolidation. 2. Stable right hemithorax postsurgical changes with pleural and parenchymal scarring. Dictated by: Wallace Dunham MD on 10/04/2019 10:59 AM. .
[2019-10-04 11:15] LABS: C-REACTIVE PROTEIN 6.37 mg/dL (<0.5)
[2019-10-04] MEDS ORDERED: ALBUTEROL SULFATE (0.083%) 2.5 MG/3 ML NEB INH ONE (11:18)
== END 2019-10-04 11:38 | disposition home or self-care (01) ==
LOC: ER 09:58
DX: J44.1 Chronic obstructive pulmonary disease with (acute) exacerbation (principal); R06.02 Shortness of breath; Z87.891 Personal history of nicotine dependence
CPT/HCPCS: 71046; 80053; 84145; 85027; 86140; 94640; 96374; 99284; J2930; J7613